=== PATIENT | male | born 1995 | race Caucasian/White ===

== ENCOUNTER 2017-10-06 18:57 | Emergency (ER) | payer SELFPAY ==
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
== END 2017-10-06 21:58 | disposition home or self-care (01) ==
LOC: ER 18:57
DX: S13.4XXA Sprain of ligaments of cervical spine, initial encounter (principal); Y09 Assault by unspecified means; Y93.9 Activity, unspecified; Y92.9 Unspecified place or not applicable
CPT/HCPCS: 70450; 70486; 72125; 76377; 99285

== ENCOUNTER 2018-04-02 02:34 | Emergency (ER) | payer SELFPAY ==
[2018-04-02] MEDS ORDERED: KETOROLAC 30 MG/ML INJ ONE (03:20)
--- NOTE | 2018-04-02 04:30 | ER ---
Nurse's Notes [facility] Name: Dominguez Easton Age: 22 yrs Sex: Male : 1995 Arrival Date: 04/02/2018 Time: 02:35 Bed 14 Private MD: Diagnosis: Headache Presentation: 04/02 02:45 Presenting complaint: Patient states: left eye twitching and tearing since 3 weeks and cc3 migraine headache mostly affecting the left eye area. Transition of care: patient was not received from another setting of care. Onset of symptoms is unknown. Risk Assessment: Do you want to hurt yourself or someone else? Patient reports no desire to harm self or others. Initial Sepsis Screen: Does the patient meet any 2 criteria? No. Patient's initial sepsis screen is negative. Does the patient have a suspected source of infection? No. Patient's initial sepsis screen is negative. Care prior to arrival: None. 02:45 Method Of Arrival: Ambulatory cc3 02:45 Acuity: SACHI 3 cc3 Triage Assessment: 02:45 General: Appears in no apparent distress. uncomfortable, Behavior is calm, cooperative, cc3 appropriate for age. Pain: Complains of pain in left eye area. EENT: Reports pain in left eye area. Neuro: Level of Consciousness is awake, alert, obeys commands, Oriented to person, place, time, situation, Appropriate for age. Cardiovascular: Denies chest pain. Respiratory: Airway is patent Respiratory effort is even, unlabored, Respiratory pattern is regular, symmetrical. GI: Abdomen is flat, non-distended. : No signs and/or symptoms were reported regarding the genitourinary system. Derm: No signs and/or symptoms reported regarding the dermatologic system. Musculoskeletal: Circulation, motion, and sensation intact. Range of motion: intact in all extremities. Historical: - Allergies: 02:45 No Known Allergies; cc3 - PMHx: 02:45 ADD/ADHD; Migraines; cc3 - PSHx: 02:45 jaw surgery; cc3 - Immunization history:: Adult Immunizations not up to date. - Social history:: Smoking status: Patient/guardian denies using tobacco, never smoked. - Ebola Screening: : No symptoms or risks identified at this time. Screenin:45 Abuse screen: Denies threats or abuse. Denies injuries from another. Nutritional cc3 screening: No deficits noted. Tuberculosis screening: No symptoms or risk factors identified. Fall Risk Ambulatory Aid- None/Bed Rest/Nurse Assist (0 pts). Gait- Normal/Bed Rest/Wheelchair (0 pts) Mental Status- Oriented to own ability (0 pts). Assessment: 02:45 General: see triage assessment. cc3 03:47 Reassessment: Patient appears in no apparent distress at this time. Patient and/or cc3 family updated on plan of care and expected duration. Pain level reassessed. Patient is alert, oriented x 3, equal unlabored respirations, skin warm/dry/pink. 04:50 Reassessment: Patient appears in no apparent distress at this time. Patient and/or cc3 family updated on plan of care and expected duration. Pain level reassessed. Patient is alert, oriented x 3, equal unlabored respirations, skin warm/dry/pink. Dr. Barillas discharged home the patient with prescription given. No IV cannula in situ. Patient left ER vitally stable and ambulatory. Vital Signs: 02:45 BP 136 / 81; Pulse 74; Resp 18 S; Temp 98.7(O); Pulse Ox 98% on R/A; Weight 61.23 kg cc3 (R); Height 6 ft. 1 in. (185.42 cm) (R); 03:32 BP 130 / 86; Pulse 61; Resp 17 S; Pulse Ox 97% on R/A; cc3 04:30 BP 103 / 65; Pulse 63; Resp 17 S; Pulse Ox 96% on R/A; cc3 02:45 Body Mass Index 17.81 (61.23 kg, 185.42 cm) cc3 ED Course: 02:35 Patient arrived in ED. am2 02:41 Lou Huynh is Primary Nurse. cc3 02:45 Aram Barillas MD is Attending Physician. gs 02:45 Arm band placed on right wrist. Patient notified of wait time. cc3 02:45 Patient has correct armband on for positive identification. Bed in low position. Call cc3 light in reach. Side rails up X 1. Pulse ox on. NIBP on. 03:02 Triage completed. cc3 03:[address] via wheelchair. kw1 03:27 CT Head Brain wo Cont In Process Unspecified. EDMS 03:28 CT completed. Patient tolerated procedure well. Patient moved back from CT. kw1 04:29 Zi Benavides MD is Referral Physician. 04:50 No provider procedures requiring assistance completed. Patient did not have IV access cc3 during this emergency room visit. Administered Medications: 03:30 Drug: TORadol 30 mg Route: IM; Site: left gluteus; cc3 04:30 Follow up: Response: No adverse reaction; Pain is decreased cc3 Outcome: 04:29 Discharge ordered by . 04:50 Discharged to home ambulatory. cc3 04:50 Condition: stable 04:50 Discharge instructions given to patient, Instructed on discharge instructions, follow up and referral plans. medication usage, Demonstrated understanding of instructions, follow-up care, medications, Prescriptions given X 1. 05:03 Patient left the ED. cc3 Signatures: Dispatcher [employer] Bhavana Stone am2 Aram Barillas MD MD gs Wilhelm, Kimberly kw1 Luo Huynh cc3
--- NOTE | 2018-04-02 04:30 | EDPHYS ---
Physician Documentation [facility] Name: Dominguez Easton Age: 22 yrs Sex: Male : 1995 Arrival Date: 04/02/2018 Time: 02:35 Bed 14 Private MD: ED Physician Aram Barillas HPI: 04/02 04:28 This 22 yrs old Male presents to ER via Ambulatory with complaints of Eye gs Problem - twitching. 04:28 The patient complains of pain to the left restorationist. The patient describes the headache as gs throbbing. Onset: The symptoms/episode began/occurred 1 month(s) ago. Associated signs and symptoms: Pertinent negatives: altered mental status, vomiting, weakness. Severity of symptoms: At its worst the pain was moderate, in the emergency department the pain is unchanged. Headache History: The patient has had previous headaches and this one is more severe than previous episodes. The patient has experienced similar episodes in the past, chronically. Historical: - Allergies: 02:45 No Known Allergies; cc3 - PMHx: 02:45 ADD/ADHD; Migraines; cc3 - PSHx: 02:45 jaw surgery; cc3 - Immunization history:: Adult Immunizations not up to date. - Social history:: Smoking status: Patient/guardian denies using tobacco, never smoked. - Ebola Screening: : No symptoms or risks identified at this time. ROS: 04:28 All other systems are negative. gs Exam: 04:28 Head/Face: Normocephalic, atraumatic. Eyes: Pupils equal round and reactive to light, gs extra-ocular motions intact. Lids and lashes normal. Conjunctiva and sclera are non-icteric and not injected. Cornea within normal limits. Periorbital areas with no swelling, redness, or edema. ENT: Nares patent. No nasal discharge, no septal abnormalities noted. Tympanic membranes are normal and external auditory canals are clear. Oropharynx with no redness, swelling, or masses, exudates, or evidence of obstruction, uvula midline. Mucous membranes moist. Neck: Trachea midline, no thyromegaly or masses palpated, and no cervical lymphadenopathy. Supple, full range of motion without nuchal rigidity, or vertebral point tenderness. No Meningismus. Chest/axilla: Normal chest wall appearance and motion. Nontender with no deformity. No lesions are appreciated. Cardiovascular: Regular rate and rhythm with a normal S1 and S2. No gallops, murmurs, or rubs. Normal PMI, no JVD. No pulse deficits. Respiratory: Lungs have equal breath sounds bilaterally, clear to auscultation and percussion. No rales, rhonchi or wheezes noted. No increased work of breathing, no retractions or nasal flaring. Abdomen/GI: Soft, non-tender, with normal bowel sounds. No distension or tympany. No guarding or rebound. No evidence of tenderness throughout. Back: No spinal tenderness. No costovertebral tenderness. Full range of motion. Skin: Warm, dry with normal turgor. Normal color with no rashes, no lesions, and no evidence of cellulitis. MS/ Extremity: Pulses equal, no cyanosis. Neurovascular intact. Full, normal range of motion. Neuro: Awake and alert, GCS 15, oriented to person, place, time, and situation. Cranial nerves II-XII grossly intact. Motor strength 5/5 in all extremities. Sensory grossly intact. Cerebellar exam normal. Normal gait. 04:28 Constitutional: The patient appears alert, awake. Vital Signs: 02:45 BP 136 / 81; Pulse 74; Resp 18 S; Temp 98.7(O); Pulse Ox 98% on R/A; Weight 61.23 kg cc3 (R); Height 6 ft. 1 in. (185.42 cm) (R); 03:32 BP 130 / 86; Pulse 61; Resp 17 S; Pulse Ox 97% on R/A; cc3 04:30 BP 103 / 65; Pulse 63; Resp 17 S; Pulse Ox 96% on R/A; cc3 02:45 Body Mass Index 17.81 (61.23 kg, 185.42 cm) cc3 MDM: 02:55 Patient medically screened. 04:28 Differential diagnosis: migraine, subdural hematoma, tension headache, vasomotor gs headache, post concussive syndrome. Data reviewed: vital signs, nurses notes. Response to treatment: the patient's symptoms have markedly improved after treatment, and as a result, I will discharge patient. 04/02 02:58 Order name: CT Head Brain wo Cont gs Administered Medications: 03:30 Drug: TORadol 30 mg Route: IM; Site: left gluteus; cc3 04:30 Follow up: Response: No adverse reaction; Pain is decreased cc3 Disposition: 04/02/18 04:29 Discharged to Home. Impression: Headache. - Condition is Stable. - Discharge Instructions: General Headache Without Cause. - Prescriptions for Fiorinal 50- 325-40 mg Oral Capsule - take 1 capsule by ORAL route every 4 hours As needed - not to exceed 6 capsules per day; 10 capsule. - Medication Reconciliation Form, Thank You Letter, Antibiotic Education, Prescription Opioid Use, Work release form form. - Follow up: Zi Benavides MD; When: 2 - 3 days; Reason: Re-evaluation by your physician. Signatures: Dispatcher [employer] EDDE Aram Barillas MD MD gs Cordel, Charlene cc3 Corrections: (The following items were deleted from the chart) 05:03 04:29 04/02/2018 04:29 Discharged to Home. Impression: Headache. Condition is Stable. cc3 Forms are Medication Reconciliation Form, Thank You Letter, Antibiotic Education, Prescription Opioid Use. Follow up: Zi Benavides; When: 2 - 3 days; Reason: Re-evaluation by your physician. gs
--- NOTE | 2018-04-02 08:47 | RAD REPORT ---
EXAM DESCRIPTION: CT - Head Brain Wo Cont - 04/02/2018 7:30 am CLINICAL HISTORY: Headache, head pain predominantly left side A preliminary report was provided at the time of the study and reviewed prior to final report. COMPARISON: CT head September 2017 TECHNIQUE: Axial 5 mm thick images of the head were obtained without IV contrast. All CT scans are performed using dose optimization technique as appropriate and may include automated exposure control or mA/KV adjustment according to patient size. FINDINGS: No intracranial hemorrhage, mass, edema or shift of mid-line structures. No acute infarcti on changes seen. No abnormal extra-axial fluid collections. Ventricles are normal. Mastoid air cells and visualized portions of the paranasal sinuses are clear. No acute bony findings. IMPRESSION: Negative non-contrast CT head examination. No significant change from comparison.
== END 2018-04-02 05:03 | disposition home or self-care (01) ==
LOC: ER 02:34
DX: R51 Headache (principal); F90.9 Attention-deficit hyperactivity disorder, unspecified type
CPT/HCPCS: 70450; 96372; 99284

== ENCOUNTER 2018-06-24 20:47 | Emergency (ER) | payer SELFPAY ==
[2018-06-24 21:25] LABS: Absolute Lymphocytes (CBC) 2.4 K/uL (0.7-4.9); Absolute Monocytes 0.8 K/uL (0.1-1.3); Basophils % 0.5 % (0-1.3); Hematocrit 42.8 % (39.6-49.0); Lymphocytes % 25.1 % (15.3-44.8); MPV 8.2 fL (7.6-11.3); Monocytes % 8.4 % (3.3-12.3); RBC Red Blood Cell Count 4.67 M/uL (4.33-5.43)
[2018-06-24 21:44] LABS: ALT/SGPT 20 U/L (12-78); AST/SGOT 18 U/L (15-37); Albumin 4.8 g/dL (3.4-5.0); Alkaline Phosphatase 108 U/L (45-117); BUN Blood Urea Nitrogen 9 mg/dL (7-18); Bicarbonate 30 mmol/L (21-32); Bilirubin Total 0.7 mg/dL (0.2-1.0); Glucose Level 94 mg/dL (74-106); Potassium 3.8 mmol/L (3.5-5.1); Protein, Total 8.2 g/dL (6.4-8.2); Sodium Level 139 mmol/L (136-145)
--- NOTE | 2018-06-24 22:13 | RAD REPORT ---
EXAM DESCRIPTION: RAD - Elbow Left 3 View - 06/24/2018 9:19 pm CLINICAL HISTORY: SWELLING COMPARISON: No comparisons FINDINGS: Soft tissue swelling is seen along the posterior aspect of the arm. No fracture, dislocati on or foreign body.
--- NOTE | 2018-06-24 22:41 | ER ---
Nurse's Notes [facility] Name: Dominguez Easton Age: 23 yrs Sex: Male : 1995 Arrival Date: 06/24/2018 Time: 20:54 Bed 11 Private MD: Diagnosis: Cellulitis of left upper limb Presentation: 06/24 20:55 Presenting complaint: Patient states: left elbow swelling since this morning. ak1 Transition of care: patient was not received from another setting of care. Onset of symptoms was June 24, 2018. Risk Assessment: Do you want to hurt yourself or someone else? Patient reports no desire to harm self or others. Initial Sepsis Screen:. Care prior to arrival: None. 20:55 Method Of Arrival: Ambulatory ak1 20:55 Acuity: SACHI 4 ak1 21:06 Initial Sepsis Screen: Does the patient meet any 2 criteria? No. Patient's initial ea sepsis screen is negative. Does the patient have a suspected source of infection? Yes: Skin breakdown/wound. Triage Assessment: 20:56 General: Appears in no apparent distress. Behavior is calm, cooperative. ak1 Historical: - Allergies: 20:56 No Known Allergies; ak1 - Home Meds: 20:56 None [Active]; ak1 - PMHx: 20:56 ADD/ADHD; Migraines; ak1 - PSHx: 20:56 jaw surgery; ak1 - Immunization history:: Adult Immunizations unknown. - Social history:: Smoking status: Patient/guardian denies using tobacco. - Ebola Screening: : No symptoms or risks identified at this time. Screenin:02 Abuse screen: Denies threats or abuse. Nutritional screening: No deficits noted. ea Tuberculosis screening: No symptoms or risk factors identified. Fall Risk None identified. Assessment: 21:03 General: Appears in no apparent distress. Behavior is calm, cooperative, appropriate ea for age. Pain: Complains of pain in left elbow. Neuro: Level of Consciousness is awake, alert, obeys commands, Oriented to person, place, time, situation. Cardiovascular: Patient's skin is warm and dry. Respiratory: Airway is patent Respiratory effort is even, unlabored, Respiratory pattern is regular, symmetrical. Derm: redness, warmth and swelling to left elbow. Musculoskeletal: Circulation, motion, and sensation intact. 22:10 Reassessment: Patient and/or family updated on plan of care and expected duration. Pain ea level reassessed. Patient is alert, oriented x 3, equal unlabored respirations, skin warm/dry/pink. 22:46 Reassessment: Patient and/or family updated on plan of care and expected duration. Pain ea level reassessed. Patient is alert, oriented x 3, equal unlabored respirations, skin warm/dry/pink. Discharge instruction given to patient, verbalized the understanding of isntruction. Vital Signs: 20:55 BP 125 / 61; Pulse 67; Resp 18; Temp 97.6(TE); Pulse Ox 100% on R/A; Weight 68.04 kg ak1 (R); Height 6 ft. 1 in. (185.42 cm) (R); Pain 5/10; 22:10 BP 128 / 62; Pulse 70; Resp 18; Temp 97.7; Pulse Ox 99% on R/A; ea 20:55 Body Mass Index 19.79 (68.04 kg, 185.42 cm) ak1 ED Course: 20:54 Patient arrived in ED. ak1 20:55 Triage completed. ak1 20:56 Arm band placed on Patient placed in an exam room, Patient notified of wait time. ak1 20:57 Enzo Thompson PA is PHCP. jm 20:57 Praneeth Toribio MD is Attending Physician. jmm 21:00 Debbie Mcgee, ZIA is Primary Nurse. ea 21:04 Patient has correct armband on for positive identification. Bed in low position. Call ea light in reach. 21:10 Inserted saline lock: 20 gauge in right antecubital area, using aseptic technique. ea Blood collected. 21:19 Elbow Left 3 View XRAY In Process Unspecified. EDMS 22:11 No provider procedures requiring assistance completed. ea 22:47 IV discontinued, intact, bleeding controlled, No redness/swelling at site. Pressure ea dressing applied. Administered Medications: No medications were administered Outcome: 22:41 Discharge ordered by . jmm 22:47 Discharge instructions given to patient, Instructed on discharge instructions, follow ea up and referral plans. medication usage, Demonstrated understanding of instructions, follow-up care, medications, Prescriptions given X 1. 22:47 Condition: good ea 22:47 Discharged to home ambulatory, with friend. ea 22:47 Patient left the ED. ea Signatures: Dispatcher [employer] EDEnzo Martinez PA PA jmm Krenek, Amber RN RN ak1 Debbie Mcgee RN RN ea
--- NOTE | 2018-06-24 22:41 | EDPHYS ---
Physician Documentation [facility] Name: Dominguez Easton Age: 23 yrs Sex: Male : 1995 Arrival Date: 06/24/2018 Time: 20:54 Bed 11 Private MD: ED Physician Praneeth Toribio HPI: 06/24 21:02 This 23 yrs old Male presents to ER via Ambulatory with complaints of Elbow jmm Injury. 21:02 The patient or guardian complains of pain, that is acute, swelling. Onset: The jmm symptoms/episode began/occurred gradually, today. This is a 23 year old male with no chronic medical conditions that presents to the ED with complaints of left elbow pain and redness beginning earlier today. patient denies fever. . Historical: - Allergies: 20:56 No Known Allergies; ak1 - Home Meds: 20:56 None [Active]; ak1 - PMHx: 20:56 ADD/ADHD; Migraines; ak1 - PSHx: 20:56 jaw surgery; ak1 - Immunization history:: Adult Immunizations unknown. - Social history:: Smoking status: Patient/guardian denies using tobacco. - Ebola Screening: : No symptoms or risks identified at this time. ROS: 21:02 Constitutional: Negative for fever, chills, and weight loss, Cardiovascular: Negative jmm for chest pain, palpitations, and edema, Respiratory: Negative for shortness of breath, cough, wheezing, and pleuritic chest pain. 21:02 MS/extremity: Positive for erythema, swelling, tenderness. 21:02 All other systems are negative. Exam: 21:02 Constitutional: This is a well developed, well nourished patient who is awake, alert, jmm and in no acute distress. Head/Face: atraumatic. Eyes: EOMI, no conjunctival erythema appreciated ENT: Moist Mucus Membranes Neck: Trachea midline, Supple Chest/axilla: Normal chest wall appearance and motion. Cardiovascular: Regular rate and rhythm. No edema appreciated Respiratory: Normal respirations, no respiratory distress appreciated Abdomen/GI: Non distended, soft 21:02 Musculoskeletal/extremity: tenderness along the lateral epicondyle appreciated, full rom appreciated with pain , compartments are soft, NVI. 21:02 Skin: erythema noted to the left lateral elbow, warmth appreciated, . 21:02 Neuro: Orientation: is normal, Mentation: is normal, Memory: is normal. 21:02 Psych: Behavior/mood is pleasant, cooperative. Vital Signs: 20:55 BP 125 / 61; Pulse 67; Resp 18; Temp 97.6(TE); Pulse Ox 100% on R/A; Weight 68.04 kg ak1 (R); Height 6 ft. 1 in. (185.42 cm) (R); Pain 5/10; 22:10 BP 128 / 62; Pulse 70; Resp 18; Temp 97.7; Pulse Ox 99% on R/A; ea 20:55 Body Mass Index 19.79 (68.04 kg, 185.42 cm) ak1 MDM: 21:02 Patient medically screened. [facility] 22:39 Data reviewed: vital signs, nurses notes. Counseling: I had a detailed discussion with [facility] the patient and/or guardian regarding: the historical points, exam findings, and any diagnostic results supporting the discharge/admit diagnosis, lab results, radiology results, the need for outpatient follow up, to return to the emergency department if symptoms worsen or persist or if there are any questions or concerns that arise at home. 22:39 ED course: FROM appreciated to the left elbow. CBC normal. I do not suspect septic m joint. Patient given wound infection return precautions. Patient understood and agrees with the plan of care. . 06/24 21:03 Order name: CBC with Diff; Complete Time: 21:49 [facility] 06/24 21:03 Order name: CMP; Complete Time: 21:49 [facility] 06/24 21:03 Order name: Elbow Left 3 View XRAY; Complete Time: 22:15 [facility] 06/24 21:03 Order name: Saline Lock; Complete Time: 21:18 [facility] Administered Medications: No medications were administered Disposition: 06/25 00:03 Co-signature as Attending Physician, Praneeth Toribio MD. rn Disposition: 06/24/18 22:41 Discharged to Home. Impression: Cellulitis of left upper limb. - Condition is Stable. - Discharge Instructions: Cellulitis, Adult. - Prescriptions for Bactrim DS 800- 160 mg Oral Tablet - take 1 tablet by ORAL route every 12 hours for 10 days; 20 tablet. - Medication Reconciliation Form, Thank You Letter, Antibiotic Education, Prescription Opioid Use form. - Follow up: Private Physician; When: 2 - 3 days; Reason: Recheck today's complaints, Continuance of care, Re-evaluation by your physician. Signatures: Dispatcher [employer] EDMS Enzo Thompson PA PA jmm Nieto, Roman, MD MD rn Krenek, Amber, RN RN ak1 Debbie Mcgee RN RN ea Corrections: (The following items were deleted from the chart) 06/24 22:47 22:41 06/24/2018 22:41 Discharged to Home. Impression: Cellulitis of left upper limb. ea Condition is Stable. Forms are Medication Reconciliation Form, Thank You Letter, Antibiotic Education, Prescription Opioid Use. Follow up: Private Physician; When: 2 - 3 days; Reason: Recheck today's complaints, Continuance of care, Re-evaluation by your physician. kimmie
== END 2018-06-24 22:47 | disposition home or self-care (01) ==
LOC: ER 20:47
DX: L03.114 Cellulitis of left upper limb (principal)
CPT/HCPCS: 36415; 80053; 85025; 99284

== ENCOUNTER 2018-06-27 20:05 | Emergency (ER) | payer SELFPAY ==
--- NOTE | 2018-06-27 22:07 | ER ---
Nurse's Notes [facility] Name: Dominguez Easton Age: 23 yrs Sex: Male : 1995 Arrival Date: 06/27/2018 Time: 20:08 Bed Waiting Private MD: Diagnosis: Presentation: 06/27 21:13 Presenting complaint: Patient states: "I was bringing my friend in and she got lp1 diagnosed with a stomach bug so I figured I should get checked out since we're together all the time"; Vomited x1, denies any diarrhea; States migraine that began at 1700, less severe than previous migraines. Transition of care: patient was not received from another setting of care. Onset of symptoms was June 27, 2018. Risk Assessment: Do you want to hurt yourself or someone else? Patient reports no desire to harm self or others. Initial Sepsis Screen: Does the patient meet any 2 criteria? No. Patient's initial sepsis screen is negative. Does the patient have a suspected source of infection? No. Patient's initial sepsis screen is negative. Care prior to arrival: None. 21:13 Method Of Arrival: Ambulatory lp1 21:13 Acuity: SACHI 3 lp1 Triage Assessment: 21:15 General: Appears in no apparent distress. Behavior is appropriate for age. Neuro: Level lp1 of Consciousness is awake, alert, obeys commands, Gait is steady, Reports photophobia. Respiratory: No deficits noted. Derm: Skin is pink, warm \\T\\ dry. Historical: - Allergies: 21:15 No Known Allergies; lp1 - Home Meds: 21:15 None [Active]; lp1 - PMHx: 21:15 ADD/ADHD; Migraines; lp1 - PSHx: 21:15 Jaw surgery; lp1 - Immunization history:: Adult Immunizations up to date, Flu vaccine is not up to date. - Social history:: Smoking status: Patient/guardian denies using tobacco. - Ebola Screening: : No symptoms or risks identified at this time. Screenin:16 Abuse screen: Denies threats or abuse. Denies injuries from another. Nutritional lp1 screening: No deficits noted. Tuberculosis screening: No symptoms or risk factors identified. Fall Risk None identified. Vital Signs: 21:15 BP 125 / 74; Pulse 64; Resp 16; Temp 97.7(O); Pulse Ox 100% on R/A; Weight 65.77 kg; lp1 Height 6 ft. 2 in. (187.96 cm); Pain 9/10; 21:15 Body Mass Index 18.62 (65.77 kg, 187.96 cm) lp1 ED Course: 20:08 Patient arrived in ED. ss4 21:15 Triage completed. lp1 21:16 Arm band placed on left wrist. lp1 21:57 Patient's name was called from ER lobby. No response. lp1 22:03 Patient's name was called from ER lobby. No response. lp1 Administered Medications: No medications were administered Outcome: 22:04 Eloped from waiting room, before seeing physician Time discovered patient gone: May lp1 2018 at 22:04 22:06 Patient left the ED. lp1 Signatures: Aida Hernandez RN RN lp1 Patricia Shi ss4 Corrections: (The following items were deleted from the chart) 21:16 21:15 Pain 9/10; lp1 lp1
== END 2018-06-27 22:06 | disposition left against medical advice (07) ==
LOC: ER 20:05
DX: R11.10 Vomiting, unspecified (principal); G43.909 Migraine, unspecified, not intractable, without status migrainosus; Z53.21 Procedure and treatment not carried out due to patient leaving prior to being seen by health care provider
CPT/HCPCS: 99281

== ENCOUNTER 2018-06-28 17:51 | Emergency (ER) | payer SELFPAY ==
[2018-06-28 19:26] LABS: Absolute Lymphocytes (CBC) 0.7 K/uL (0.7-4.9); Absolute Monocytes 0.6 K/uL (0.1-1.3); Absolute Neutrophil 8.9 K/uL (1.8-8.0); Basophils % 0.2 % (0-1.3); Eosinophils % 1.7 % (0-4.4); Hematocrit 45.4 % (39.6-49.0); Lymphocytes % 7.1 % (15.3-44.8); MPV 8.2 fL (7.6-11.3); Monocytes % 5.5 % (3.3-12.3); RBC Red Blood Cell Count 5.05 M/uL (4.33-5.43)
[2018-06-28 19:44] LABS: ALT/SGPT 17 U/L (12-78); AST/SGOT 14 U/L (15-37); Albumin 4.8 g/dL (3.4-5.0); Alkaline Phosphatase 107 U/L (45-117); BUN Blood Urea Nitrogen 16 mg/dL (7-18); Bicarbonate 28 mmol/L (21-32); Bilirubin Direct 0.2 mg/dL (0-0.2); Bilirubin Total 1.1 mg/dL (0.2-1.0); Glucose Level 80 mg/dL (74-106); Lipase 74 U/L (73-393); Potassium 3.9 mmol/L (3.5-5.1); Protein, Total 8.2 g/dL (6.4-8.2); Sodium Level 139 mmol/L (136-145)
[2018-06-28] MEDS ORDERED: NA CHLORIDE 0.9% 1,000 ML ONE (19:44)
[2018-06-28] MEDS ORDERED: ONDANSETRON 4 MG/2 ML VIAL ONE (19:44)
[2018-06-28 19:49] LABS: Blood Morphology Comment NOT SEEN (NOT SEEN); Platelet Estimate ADEQ; Urine White Blood Cell Casts OK
--- NOTE | 2018-06-28 20:07 | ER ---
Nurse's Notes [facility] Name: Dominguez Easton Age: 23 yrs Sex: Male : 1995 Arrival Date: 06/28/2018 Time: 17:55 Bed 19 Private MD: None, None Diagnosis: Acute Gastroenteritis Presentation: 06/28 18:03 Presenting complaint: Patient states: Numbness of the arm for several days, reports sg having vomiting/diarrhea as well that has worsened today. Transition of care: patient was not received from another setting of care. Onset of symptoms was June 28, 2018. Risk Assessment: Do you want to hurt yourself or someone else? Patient reports no desire to harm self or others. Initial Sepsis Screen: Does the patient meet any 2 criteria? No. Patient's initial sepsis screen is negative. Does the patient have a suspected source of infection? No. Patient's initial sepsis screen is negative. Care prior to arrival: None. 18:03 Method Of Arrival: Ambulatory sg 18:03 Acuity: SACHI 3 sg Historical: - Allergies: 18:03 No Known Allergies; sg - PMHx: 18:02 ADD/ADHD; Migraines; sg - PSHx: 18:02 Jaw surgery; sg - Immunization history:: Adult Immunizations up to date. - Social history:: Smoking status: Patient/guardian denies using tobacco. - Ebola Screening: : Patient negative for fever greater than or equal to 101.5 degrees Fahrenheit, and additional compatible Ebola Virus Disease symptoms Patient denies exposure to infectious person Patient denies travel to an Ebola-affected area in the 21 days before illness onset No symptoms or risks identified at this time. Screenin:37 Abuse screen: Denies threats or abuse. Denies injuries from another. Nutritional jl7 screening: No deficits noted. Tuberculosis screening: No symptoms or risk factors identified. Fall Risk None identified. Assessment: 18:37 General: Appears in no apparent distress. uncomfortable, Behavior is calm, cooperative, jl7 appropriate for age. Pain: Complains of pain in umbilical area Pain does not radiate. Pain currently is 3 out of 10 on a pain scale. at worst was 10 out of 10 on a pain scale. Quality of pain is described as sharp, Pain began 1 day ago. Is continuous. Neuro: Level of Consciousness is awake, alert, obeys commands, Oriented to person, place, time, situation. Cardiovascular: Patient's skin is warm and dry. Respiratory: Airway is patent Respiratory effort is even, unlabored, Respiratory pattern is regular, symmetrical. GI: Abdomen is flat, non-distended, Reports diarrhea, nausea, vomiting. : No signs and/or symptoms were reported regarding the genitourinary system. EENT: No signs and/or symptoms were reported regarding the EENT system. Derm: Skin is pink, warm \T\ dry. 19:42 Reassessment: Patient appears in no apparent distress at this time. No changes from ed1 previously documented assessment. Patient and/or family updated on plan of care and expected duration. Pain level reassessed. Patient is alert, oriented x 3, equal unlabored respirations, skin warm/dry/pink. Patient states symptoms have not improved. Vital Signs: 18:02 BP 119 / 73; Pulse 70; Resp 17; Temp 97.6; Pulse Ox 99% on R/A; Weight 79.38 kg (R); sg Height 6 ft. 3 in. (190.50 cm); Pain 4/10; 18:37 BP 120 / 77; Pulse 67; Resp 16 S; Pulse Ox 100% on R/A; jl7 19:42 BP 115 / 72; Pulse 63; Resp 17; Pulse Ox 99% on R/A; Pain 4/10; ed1 18:02 Body Mass Index 21.87 (79.38 kg, 190.50 cm) ED Course: 17:55 Patient arrived in ED. mr 17:56 None, None is Private Physician. mr 18:02 Arm band placed on. sg 18:04 Triage completed. sg 18:04 Maci Aburto, ZIA is Primary Nurse. jl7 18:37 Patient has correct armband on for positive identification. Bed in low position. Call jl7 light in reach. Side rails up X 1. Pulse ox on. NIBP on. 18:38 Kunal Hyde PA is PHCP. jr8 18:38 Praneeth Toribio MD is Attending Physician. jr8 18:58 Primary Nurse role handed off by Maci Aburto, ZIA ed1 18:58 Priti Zaldivar, ZIA is Primary Nurse. ed1 19:34 Inserted saline lock: 20 gauge in right antecubital area, using aseptic technique. oe Blood collected. 20:22 No provider procedures requiring assistance completed. IV discontinued, intact, ed1 bleeding controlled, No redness/swelling at site. Pressure dressing applied. Administered Medications: 19:36 Drug: Zofran 4 mg Route: IVP; Site: right antecubital; ed1 20:22 Follow up: Response: No adverse reaction; Nausea is decreased ed1 19:37 Drug: NS 0.9% 1000 ml Route: IV; Rate: 1000 ml; Site: right antecubital; ed1 20:22 Follow up: IV Status: Completed infusion; IV Intake: 1000ml ed1 Intake: 20:22 IV: 1000ml; Total: 1000ml. ed1 Outcome: 20:06 Discharge ordered by MD. keene 20:22 Discharged to home ambulatory. ed1 20:22 Condition: good 20:22 Discharge instructions given to patient, Instructed on discharge instructions, follow up and referral plans. medication usage, Demonstrated understanding of instructions, follow-up care, medications, Prescriptions given X 2. 20:23 Patient left the ED. ed1 Signatures: Jarocho Saunders, RN Jesusita Alejandre Erika RN RN ed1 Kunal Hyde PA PA jr8 Luis Fernando Clarke Jahala RN RN jl7
--- NOTE | 2018-06-28 20:07 | EDPHYS ---
Physician Documentation [facility] Name: Dominguez Easton Age: 23 yrs Sex: Male : 1995 Arrival Date: 06/28/2018 Time: 17:55 Bed 19 Private MD: None, None ED Physician Praneeth Toribio HPI: 06/28 19:05 This 23 yrs old Male presents to ER via Ambulatory with complaints of jr8 Vomiting/Diarrhea. 19:10 The patient presents with abdominal pain that is diffuse. Onset: The symptoms/episode jr8 began/occurred acutely, today. The symptoms do not radiate. Associated signs and symptoms: Pertinent positives: nausea, vomiting, and diarrhea. The symptoms are described as crampy. Modifying factors: The symptoms are alleviated by nothing, the symptoms are aggravated by food. Severity of pain: At its worst the pain was moderate in the emergency department the pain is unchanged. The patient has not experienced similar symptoms in the past. The patient has not recently seen a physician. Stated that his friend was recently diagnosed with GI viral symptoms. Stated that he was drinking after her and now thinks he has it. Stated that he has had multiple episodes of n/v/d and abdominal cramping . Historical: - Allergies: 18:03 No Known Allergies; sg - PMHx: 18:02 ADD/ADHD; Migraines; sg - PSHx: 18:02 Jaw surgery; sg - Immunization history:: Adult Immunizations up to date. - Social history:: Smoking status: Patient/guardian denies using tobacco. - Ebola Screening: : Patient negative for fever greater than or equal to 101.5 degrees Fahrenheit, and additional compatible Ebola Virus Disease symptoms Patient denies exposure to infectious person Patient denies travel to an Ebola-affected area in the 21 days before illness onset No symptoms or risks identified at this time. ROS: 19:05 Eyes: Negative for injury, pain, redness, and discharge, ENT: Negative for injury, jr8 pain, and discharge, Neck: Negative for injury, pain, and swelling, Cardiovascular: Negative for chest pain, palpitations, and edema, Respiratory: Negative for shortness of breath, cough, wheezing, and pleuritic chest pain, Back: Negative for injury and pain, MS/Extremity: Negative for injury and deformity, Skin: Negative for injury, rash, and discoloration, Neuro: Negative for headache, weakness, numbness, tingling, and seizure. 19:05 Abdomen/GI: Positive for abdominal pain, nausea, vomiting, and diarrhea, abdominal cramps, Negative for abdominal distension, anorexia, dysphagia, hematemesis, black/tarry stool, rectal pain, rectal bleeding, bowel incontinence, flatulence. Exam: 19:05 Eyes: Pupils equal round and reactive to light, extra-ocular motions intact. Lids and jr8 lashes normal. Conjunctiva and sclera are non-icteric and not injected. Cornea within normal limits. Periorbital areas with no swelling, redness, or edema. ENT: Nares patent. No nasal discharge, no septal abnormalities noted. Tympanic membranes are normal and external auditory canals are clear. Oropharynx with no redness, swelling, or masses, exudates, or evidence of obstruction, uvula midline. Mucous membranes moist. Neck: Trachea midline, no thyromegaly or masses palpated, and no cervical lymphadenopathy. Supple, full range of motion without nuchal rigidity, or vertebral point tenderness. No Meningismus. Cardiovascular: Regular rate and rhythm with a normal S1 and S2. No gallops, murmurs, or rubs. Normal PMI, no JVD. No pulse deficits. Respiratory: Lungs have equal breath sounds bilaterally, clear to auscultation and percussion. No rales, rhonchi or wheezes noted. No increased work of breathing, no retractions or nasal flaring. Back: No spinal tenderness. No costovertebral tenderness. Full range of motion. Skin: Warm, dry with normal turgor. Normal color with no rashes, no lesions, and no evidence of cellulitis. MS/ Extremity: Pulses equal, no cyanosis. Neurovascular intact. Full, normal range of motion. Neuro: Awake and alert, GCS 15, oriented to person, place, time, and situation. Cranial nerves II-XII grossly intact. Motor strength 5/5 in all extremities. Sensory grossly intact. Cerebellar exam normal. Normal gait. 19:05 Abdomen/GI: Inspection: abdomen appears normal, Bowel sounds: active, all quadrants, Palpation: soft, in all quadrants, mild abdominal tenderness, in the abdomen diffusely, mass, is not appreciated, rebound tenderness, is not appreciated, voluntary guarding, is not appreciated, involuntary guarding, is not appreciated, no appreciated organomegaly, Indicators: McBurney's point is not tender, Puckett's sign is negative, Rovsing's sign is negative, Liver: tenderness, is not appreciated. Vital Signs: 18:02 BP 119 / 73; Pulse 70; Resp 17; Temp 97.6; Pulse Ox 99% on R/A; Weight 79.38 kg (R); sg Height 6 ft. 3 in. (190.50 cm); Pain 4/10; 18:37 BP 120 / 77; Pulse 67; Resp 16 S; Pulse Ox 100% on R/A; jl7 19:42 BP 115 / 72; Pulse 63; Resp 17; Pulse Ox 99% on R/A; Pain 4/10; ed1 18:02 Body Mass Index 21.87 (79.38 kg, 190.50 cm) sg MDM: 19:11 Patient medically screened. jr8 20:02 Data reviewed: vital signs, nurses notes, lab test result(s), and as a result, I will jr8 discharge patient. Data interpreted: Pulse oximetry: on room air is 99 %. Interpretation: normal. Counseling: I had a detailed discussion with the patient and/or guardian regarding: the historical points, exam findings, and any diagnostic results supporting the discharge/admit diagnosis, lab results, the need for outpatient follow up, a family practitioner, to return to the emergency department if symptoms worsen or persist or if there are any questions or concerns that arise at home. Response to treatment: the patient's symptoms have markedly improved after treatment. ED course: Abdomen soft and without rebounding or guarding. No acute findings on labs. Return precautions given . 06/28 19:05 Order name: Basic Metabolic Panel; Complete Time: 19:52 [facility] 06/28 19:05 Order name: CBC with Diff; Complete Time: 19:52 [facility] 06/28 19:05 Order name: Creatinine for Radiology; Complete Time: 19:52 [facility] 06/28 19:05 Order name: Hepatic Function; Complete Time: 19:52 [facility] 06/28 19:05 Order name: Lipase; Complete Time: 19:52 [facility] 06/28 19:29 Order name: CBC Smear Scan; Complete Time: 19:52 [facility] 06/28 19:05 Order name: IV Saline Lock; Complete Time: 19:31 06/28 19:05 Order name: Labs collected and sent; Complete Time: 19:31 jr8 Administered Medications: 19:36 Drug: Zofran 4 mg Route: IVP; Site: right antecubital; ed1 20:22 Follow up: Response: No adverse reaction; Nausea is decreased ed1 19:37 Drug: NS 0.9% 1000 ml Route: IV; Rate: 1000 ml; Site: right antecubital; ed1 20:22 Follow up: IV Status: Completed infusion; IV Intake: 1000ml ed1 Disposition: 06/29 07:00 Co-signature as Attending Physician, Praneeth Toribio MD. rn Disposition: 06/28/18 20:06 Discharged to Home. Impression: Acute Gastroenteritis. - Condition is Stable. - Discharge Instructions: Viral Gastroenteritis, Adult. - Prescriptions for Bentyl 20 mg Oral Tablet - take 1 tablet by ORAL route every 6 hours As needed; 20 tablet. Zofran 4 mg Oral Tablet - take 1 tablet by ORAL route every 12 hours As needed; 20 tablet. - Medication Reconciliation Form, Thank You Letter, Antibiotic Education, Prescription Opioid Use form. - Follow up: Private Physician; When: 2 - 3 days; Reason: Recheck today's complaints, Continuance of care, Re-evaluation by your physician. - Problem is new. - Symptoms have improved. Signatures: Dispatcher [employer] EDHI Jarocho Saunders RN RN Praneeth Toribio MD MD rn Riggs, Erika, RN RN ed1 Kunal Hyde PA PA jr8 Corrections: (The following items were deleted from the chart) 06/28 20:23 20:06 06/28/2018 20:06 Discharged to Home. Impression: Acute Gastroenteritis. Condition ed1 is Stable. Forms are Medication Reconciliation Form, Thank You Letter, Antibiotic Education, Prescription Opioid Use. Follow up: Private Physician; When: 2 - 3 days; Reason: Recheck today's complaints, Continuance of care, Re-evaluation by your physician. Problem is new. Symptoms have improved. jr8
== END 2018-06-28 20:23 | disposition home or self-care (01) ==
LOC: ER 17:51
DX: K52.9 Noninfective gastroenteritis and colitis, unspecified (principal)
CPT/HCPCS: 36415; 80048; 80076; 83690; 85025; 96361; 96374; 99284; J2405; J7030

== ENCOUNTER 2018-08-27 02:05 | Emergency (ER) | payer SELFPAY ==
[2018-08-27 02:46] LABS: Absolute Lymphocytes (CBC) 0.8 K/uL (0.7-4.9); Absolute Monocytes 0.8 K/uL (0.1-1.3); Absolute Neutrophil 9.2 K/uL (1.8-8.0); Basophils % 0.2 % (0-1.3); Eosinophils % 0.5 % (0-4.4); Hematocrit 40.8 % (39.6-49.0); Lymphocytes % 7.6 % (15.3-44.8); MPV 7.9 fL (7.6-11.3); Monocytes % 7.7 % (3.3-12.3)
[2018-08-27] MEDS ORDERED: NA CHLORIDE 0.9% 1,000 ML ONE (02:46)
[2018-08-27] MEDS ORDERED: KETOROLAC 30 MG/ML INJ ONE (02:46)
[2018-08-27] MEDS ORDERED: DIPHENHYDRAMINE 50 MG/ML VIAL ONE (02:46)
[2018-08-27 03:04] LABS: BUN Blood Urea Nitrogen 13 mg/dL (7-18); Bicarbonate 25 mmol/L (21-32); Creatine Phosphokinase 95 U/L (39-308); Glucose Level 149 mg/dL (74-106); Potassium 3.2 mmol/L (3.5-5.1); Sodium Level 137 mmol/L (136-145)
--- NOTE | 2018-08-27 03:57 | ER ---
Nurse's Notes [facility] Name: Dominguez Easton Age: 23 yrs Sex: Male : 1995 Arrival Date: 08/27/2018 Time: 02:11 Bed 7 Private MD: Diagnosis: Headache Presentation: 08/27 02:24 Presenting complaint: Patient states: migraine and dizziness x 3 days. Transition of aa1 care: patient was not received from another setting of care. 02:24 Method Of Arrival: Ambulatory aa1 02:24 Onset of symptoms was August 24, 2018. Risk Assessment: Do you want to hurt yourself or aa1 someone else? Patient reports no desire to harm self or others. Initial Sepsis Screen: Does the patient meet any 2 criteria? No. Patient's initial sepsis screen is negative. Does the patient have a suspected source of infection? No. Patient's initial sepsis screen is negative. Care prior to arrival: None. 02:24 Acuity: SACHI 3 aa1 Triage Assessment: 02:24 General: Appears in no apparent distress. comfortable, Behavior is calm, cooperative, aa1 appropriate for age. Historical: - Allergies: 02:30 No Known Allergies; aa1 - Home Meds: 02:30 None [Active]; aa1 - PMHx: 02:30 ADD/ADHD; Migraines; aa1 - PSHx: 02:30 Jaw surgery; aa1 - Immunization history:: Flu vaccine is not up to date. - Social history:: Smoking status: Patient/guardian denies using tobacco. - Ebola Screening: : No symptoms or risks identified at this time. Screenin:08 Abuse screen: Denies threats or abuse. Nutritional screening: No deficits noted. ea Tuberculosis screening: No symptoms or risk factors identified. Fall Risk None identified. Assessment: 02:40 General: Appears uncomfortable, Behavior is calm, cooperative, appropriate for age. ea Pain: Complains of pain in top of head, forehead, right episcopalian and left episcopalian. Neuro: Level of Consciousness is awake, alert, obeys commands, Oriented to person, place, time, situation. Cardiovascular: Patient's skin is warm and dry. Respiratory: Airway is patent Respiratory effort is even, unlabored, Respiratory pattern is regular, symmetrical. GI: Abdomen is non-distended. Derm: Skin is pink, warm \T\ dry. 03:08 Reassessment: Patient and/or family updated on plan of care and expected duration. Pain ea level reassessed. Patient is alert, oriented x 3, equal unlabored respirations, skin warm/dry/pink. 04:12 Reassessment: Patient and/or family updated on plan of care and expected duration. Pain ea level reassessed. Patient is alert, oriented x 3, equal unlabored respirations, skin warm/dry/pink. Discharge instruction given to patient, verbalized the understanding of instruction. Pt left ED ambulatory tolerating well. Vital Signs: 02:24 BP 135 / 78; Pulse 93; Resp 16; Temp 99.0; Pulse Ox 97% ; Weight 65.77 kg; Height 6 ft. aa1 1 in. (185.42 cm); Pain 10/10; 03:05 BP 101 / 60; Pulse 79; Resp 18; Pulse Ox 99% ; ea 04:05 BP 100 / 52; Pulse 78; Resp 18; Temp 98; Pulse Ox 100% ; ea 02:24 Body Mass Index 19.13 (65.77 kg, 185.42 cm) aa1 ED Course: 02:11 Patient arrived in ED. es 02:20 Aram Barillas MD is Attending Physician. gs 02:24 Arm band placed on right wrist. aa1 02:28 Triage completed. aa1 02:28 Debbie Mcgee, ZIA is Primary Nurse. ea 02:40 Patient has correct armband on for positive identification. Bed in low position. Call ea light in reach. Side rails up X 1. 04:09 IV discontinued, intact, bleeding controlled, No redness/swelling at site. Pressure ea dressing applied. 04:12 No provider procedures requiring assistance completed. ea Administered Medications: 02:39 Drug: NS 0.9% 1000 ml Route: IV; Rate: 1 bolus; Site: right antecubital; ea 02:39 Drug: TORadol - Ketorolac 15 mg Route: IVP; Site: right antecubital; ea 04:00 Follow up: Response: No adverse reaction ea 02:40 Drug: Benadryl 12.5 mg Route: IVP; Site: right antecubital; ea 04:16 Follow up: Response: No adverse reaction; Marked relief of symptoms ea Outcome: 03:56 Discharge ordered by . gs 04:13 Discharged to home ambulatory. ea 04:13 Condition: improved 04:13 Instructed on discharge instructions, follow up and referral plans. Demonstrated understanding of instructions, follow-up care. 04:16 Patient left the ED. ea Signatures: Dottie Hilton, RN RN aa1 Meche Meeks Elena, RN RN Aram Mcmillan MD MD
--- NOTE | 2018-08-27 03:57 | EDPHYS ---
Physician Documentation [facility] Name: Dominguez Easton Age: 23 yrs Sex: Male : 1995 Arrival Date: 08/27/2018 Time: 02:11 Bed 7 Private MD: ED Physician Aram Barillas HPI: 08/27 03:53 This 23 yrs old Male presents to ER via Ambulatory with complaints of gs Headache. 03:53 The patient complains of pain to the left restorationist. The patient describes the headache as gs throbbing. Onset: The symptoms/episode began/occurred 3 day(s) ago. 03:53 Associated signs and symptoms: Pertinent negatives: dizziness, nausea. Severity of gs symptoms: At its worst the pain was severe, in the emergency department the pain is unchanged. Headache History: The patient has had previous headaches and this one is similar to previous episodes. The symptoms are alleviated by nothing. the symptoms are aggravated by nothing. The patient has experienced similar episodes in the past, multiple times. Historical: - Allergies: 02:30 No Known Allergies; aa1 - Home Meds: 02:30 None [Active]; aa1 - PMHx: 02:30 ADD/ADHD; Migraines; aa1 - PSHx: 02:30 Jaw surgery; aa1 - Immunization history:: Flu vaccine is not up to date. - Social history:: Smoking status: Patient/guardian denies using tobacco. - Ebola Screening: : No symptoms or risks identified at this time. ROS: 03:53 All other systems are negative. gs Exam: 03:53 Head/Face: Normocephalic, atraumatic. Eyes: Pupils equal round and reactive to light, gs extra-ocular motions intact. Lids and lashes normal. Conjunctiva and sclera are non-icteric and not injected. Cornea within normal limits. Periorbital areas with no swelling, redness, or edema. ENT: Nares patent. No nasal discharge, no septal abnormalities noted. Tympanic membranes are normal and external auditory canals are clear. Oropharynx with no redness, swelling, or masses, exudates, or evidence of obstruction, uvula midline. Mucous membranes moist. Neck: Trachea midline, no thyromegaly or masses palpated, and no cervical lymphadenopathy. Supple, full range of motion without nuchal rigidity, or vertebral point tenderness. No Meningismus. Chest/axilla: Normal chest wall appearance and motion. Nontender with no deformity. No lesions are appreciated. Cardiovascular: Regular rate and rhythm with a normal S1 and S2. No gallops, murmurs, or rubs. Normal PMI, no JVD. No pulse deficits. Respiratory: Lungs have equal breath sounds bilaterally, clear to auscultation and percussion. No rales, rhonchi or wheezes noted. No increased work of breathing, no retractions or nasal flaring. Abdomen/GI: Soft, non-tender, with normal bowel sounds. No distension or tympany. No guarding or rebound. No evidence of tenderness throughout. Back: No spinal tenderness. No costovertebral tenderness. Full range of motion. Skin: Warm, dry with normal turgor. Normal color with no rashes, no lesions, and no evidence of cellulitis. MS/ Extremity: Pulses equal, no cyanosis. Neurovascular intact. Full, normal range of motion. Neuro: Awake and alert, GCS 15, oriented to person, place, time, and situation. Cranial nerves II-XII grossly intact. Motor strength 5/5 in all extremities. Sensory grossly intact. Cerebellar exam normal. Normal gait. 03:53 Constitutional: The patient appears alert, awake. Vital Signs: 02:24 BP 135 / 78; Pulse 93; Resp 16; Temp 99.0; Pulse Ox 97% ; Weight 65.77 kg; Height 6 ft. aa1 1 in. (185.42 cm); Pain 10/10; 03:05 BP 101 / 60; Pulse 79; Resp 18; Pulse Ox 99% ; ea 04:05 BP 100 / 52; Pulse 78; Resp 18; Temp 98; Pulse Ox 100% ; ea 02:24 Body Mass Index 19.13 (65.77 kg, 185.42 cm) aa1 MDM: 02:27 Patient medically screened. 03:53 Differential diagnosis: migraine, tension headache, vasomotor headache. Data reviewed: vital signs, nurses notes, old medical records, lab test result(s). Counseling: I had a detailed discussion with the patient and/or guardian regarding: the historical points, exam findings, and any diagnostic results supporting the discharge/admit diagnosis, lab results, the need for outpatient follow up. Response to treatment: the patient's symptoms have markedly improved after treatment, the patient's symptoms have resolved after treatment, the patient's pain is gone, the patient's condition has returned to base line. 08/27 02:28 Order name: CBC with Diff; Complete Time: 03:02 gs 08/27 02:28 Order name: Basic Metabolic Panel; Complete Time: 03:10 gs 08/27 02:28 Order name: CPK; Complete Time: 03:10 gs Administered Medications: 02:39 Drug: NS 0.9% 1000 ml Route: IV; Rate: 1 bolus; Site: right antecubital; ea 02:39 Drug: TORadol - Ketorolac 15 mg Route: IVP; Site: right antecubital; ea 04:00 Follow up: Response: No adverse reaction ea 02:40 Drug: Benadryl 12.5 mg Route: IVP; Site: right antecubital; ea 04:16 Follow up: Response: No adverse reaction; Marked relief of symptoms ea Disposition: 08/27/18 03:56 Discharged to Home. Impression: Headache. - Condition is Stable. - Discharge Instructions: Dehydration, Adult, General Headache Without Cause, Migraine Headache. - Medication Reconciliation Form, Thank You Letter, Antibiotic Education, Prescription Opioid Use form. - Follow up: Private Physician; When: 2 - 3 days; Reason: Re-evaluation by your physician. Signatures: Dispatcher [employer] Dottie Arnold RN RN aa1 Debbie Mcgee RN RN Aram Mcmillan MD MD gs Corrections: (The following items were deleted from the chart) 04:16 03:56 08/27/2018 03:56 Discharged to Home. Impression: Headache. Condition is Stable. ea Forms are Medication Reconciliation Form, Thank You Letter, Antibiotic Education, Prescription Opioid Use. Follow up: Private Physician; When: 2 - 3 days; Reason: Re-evaluation by your physician. gs
== END 2018-08-27 04:16 | disposition home or self-care (01) ==
LOC: ER 02:05
DX: R51 Headache (principal); F90.9 Attention-deficit hyperactivity disorder, unspecified type
CPT/HCPCS: 36415; 80048; 82550; 85025; 96374; 96375; 99283; J7030

== ENCOUNTER 2018-09-23 02:13 | Emergency (ER) | payer SELFPAY ==
--- NOTE | 2018-09-23 02:37 | ER ---
Nurse's Notes [facility] Name: Dominguez Easton Age: 23 yrs Sex: Male : 1995 Arrival Date: 09/23/2018 Time: 02:17 Bed 6 Private MD: Diagnosis: Rash and other nonspecific skin eruption Presentation: 09/23 02:25 Presenting complaint: Patient states: i got bitten by a "chiggers" 2 days ago on my rr5 genital area it got swollen. pain score of 6/10. 02:25 Transition of care: patient was not received from another setting of care. Onset of rr5 symptoms was September 21, 2018. Risk Assessment: Do you want to hurt yourself or someone else? Patient reports no desire to harm self or others. Initial Sepsis Screen: Does the patient meet any 2 criteria? No. Patient's initial sepsis screen is negative. Does the patient have a suspected source of infection? No. Patient's initial sepsis screen is negative. Care prior to arrival: None. 02:25 Method Of Arrival: Ambulatory rr5 02:25 Acuity: SACHI 4 rr5 Triage Assessment: 02:10 Bite description: bite sustained to abdomen, right leg and left leg and genitalia by rr5 chiggers, animal information: vaccination(s) is unknown. 02:10 General: Appears in no apparent distress. uncomfortable, Behavior is calm, cooperative, rr5 appropriate for age. Historical: - Allergies: 02:33 No Known Allergies; rr5 - Home Meds: 02:33 None [Active]; rr5 - PMHx: 02:33 ADD/ADHD; Migraines; Bipolar disorder; rr5 - PSHx: 02:33 jaw surgery; rr5 - Immunization history:: Adult Immunizations not up to date. - Social history:: Smoking status: Patient/guardian denies using tobacco, Patient uses alcohol, occasionally. Patient/guardian denies using street drugs. - Ebola Screening: : Patient negative for fever greater than or equal to 101.5 degrees Fahrenheit, and additional compatible Ebola Virus Disease symptoms Patient denies exposure to infectious person Patient denies travel to an Ebola-affected area in the 21 days before illness onset. - Family history:: not pertinent. - Hospitalizations: : No recent hospitalization is reported. Screenin:30 Abuse screen: Denies threats or abuse. Denies injuries from another. Nutritional rr5 screening: No deficits noted. Tuberculosis screening: No symptoms or risk factors identified. Fall Risk None identified. Total Fajardo Fall Scale indicates No Risk (0-24 pts). Assessment: 02:30 General: Appears in no apparent distress. uncomfortable, Behavior is calm, cooperative, rr5 agitated. Pain: Complains of pain in penile area Pain does not radiate. Pain currently is 6 out of 10 on a pain scale. Quality of pain is described as aching, Pain began gradually, Is intermittent. Neuro: Level of Consciousness is awake, alert, obeys commands, Oriented to person, place, time, situation, Appropriate for age. Cardiovascular: Capillary refill < 3 seconds Patient's skin is warm and dry. Respiratory: Airway is patent Respiratory effort is even, unlabored, Respiratory pattern is regular, agonal. GI: No signs and/or symptoms were reported involving the gastrointestinal system. : Swelling noted on penis on scrotum bite red darden noted. EENT: No signs and/or symptoms were reported regarding the EENT system. Derm: Skin is intact, Skin is pink, warm \\T\\ dry. Rash noted that is papular, red, raised, on anterior aspect of left lateral abdomen, anterior aspect of right lateral abdomen, right lower quadrant, left lower quadrant, right leg and left leg. Musculoskeletal: Circulation, motion, and sensation intact. Capillary refill < 3 seconds. 02:50 Reassessment: Patient appears in no apparent distress at this time. discharge rr5 instruction given and explained without complaints made. Vital Signs: 02:30 BP 138 / 81; Pulse 86; Resp 17; Temp 98.6; Pulse Ox 98% ; Weight 65.77 kg; Height 6 ft. rr5 1 in. (185.42 cm); Pain 6/10; 02:39 BP 120 / 78; Pulse 72; Resp 19; Pulse Ox 96% ; rr5 02:30 Body Mass Index 19.13 (65.77 kg, 185.42 cm) rr5 ED Course: 02:17 Patient arrived in ED. do 02:26 Monty Abrams MD is Attending Physician. wa 02:29 Jacek Gregg RN is Primary Nurse. rr5 02:30 Patient has correct armband on for positive identification. Bed in low position. rr5 02:32 Triage completed. rr5 02:34 Arm band placed on. rr5 02:38 No provider procedures requiring assistance completed. Patient did not have IV access rr5 during this emergency room visit. Administered Medications: No medications were administered Outcome: 02:34 Discharge ordered by . kaitlin 02:50 Discharged to home ambulatory. rr5 02:50 Condition: stable 02:50 Discharge instructions given to patient, Instructed on discharge instructions, follow up and referral plans. medication usage, Demonstrated understanding of instructions, follow-up care, medications, Prescriptions given X 2. 02:52 Patient left the ED. rr5 Signatures: Princess Kee William, MD MD wa Roque, Raymond, RN RN rr5
--- NOTE | 2018-09-23 02:37 | EDPHYS ---
Physician Documentation [facility] Name: Dominguez Easton Age: 23 yrs Sex: Male : 1995 Arrival Date: 09/23/2018 Time: 02:17 Bed 6 Private MD: ED Physician Monty Abrams HPI: 09/23 04:28 This 23 yrs old Male presents to ER via Ambulatory with complaints of Insect wa Bite, Genital Area Problem. 04:28 The patient's rash thought to be caused by insect bites. The rash is located on the wa left leg and right leg and abdomen, buttock, lower back. The rash can be described as erythematous, papular, some crusted. a few with punched centers. Onset: The symptoms/episode began/occurred 2 day(s) ago. Associated signs and symptoms: Pertinent positives: itching, Pertinent negatives: burning sensation, difficulty breathing, Pain swelling of tongue, wheezing. Severity of symptoms: At their worst the symptoms were moderate in the emergency department the symptoms are unchanged. Treatment given at home: none. The patient has not experienced similar symptoms in the past. The patient has not recently seen a physician. states was cutting grass a couple days back and may have been bitten then. . Historical: - Allergies: 02:33 No Known Allergies; rr5 - Home Meds: 02:33 None [Active]; rr5 - PMHx: 02:33 ADD/ADHD; Migraines; Bipolar disorder; rr5 - PSHx: 02:33 jaw surgery; rr5 - Immunization history:: Adult Immunizations not up to date. - Social history:: Smoking status: Patient/guardian denies using tobacco, Patient uses alcohol, occasionally. Patient/guardian denies using street drugs. - Ebola Screening: : Patient negative for fever greater than or equal to 101.5 degrees Fahrenheit, and additional compatible Ebola Virus Disease symptoms Patient denies exposure to infectious person Patient denies travel to an Ebola-affected area in the 21 days before illness onset. - Family history:: not pertinent. - Hospitalizations: : No recent hospitalization is reported. ROS: 04:34 Constitutional: Negative for fever, chills, and weight loss, Eyes: Negative for injury, wa pain, redness, and discharge, ENT: Negative for injury, pain, and discharge, Neck: Negative for injury, pain, and swelling, Cardiovascular: Negative for chest pain, palpitations, and edema, Respiratory: Negative for shortness of breath, cough, wheezing, and pleuritic chest pain, Abdomen/GI: Negative for abdominal pain, nausea, vomiting, diarrhea, and constipation, Back: Negative for injury and pain, : Negative for injury, bleeding, discharge, and swelling, MS/Extremity: Negative for injury and deformity, Neuro: Negative for headache, weakness, numbness, tingling, and seizure, Psych: Negative for depression, anxiety, suicide ideation, homicidal ideation, and hallucinations. 04:34 Skin: Positive for rash, Negative for swelling. 04:34 All other systems are negative. Exam: 04:40 Constitutional: This is a well developed, well nourished patient who is awake, alert, wa and in no acute distress. Head/Face: Normocephalic, atraumatic. Eyes: Pupils equal round and reactive to light, extra-ocular motions intact. Lids and lashes normal. Conjunctiva and sclera are non-icteric and not injected. Cornea within normal limits. Periorbital areas with no swelling, redness, or edema. ENT: Nares patent. No nasal discharge, no septal abnormalities noted. Tympanic membranes are normal and external auditory canals are clear. Oropharynx with no redness, swelling, or masses, exudates, or evidence of obstruction, uvula midline. Mucous membranes moist. Neck: Trachea midline, no thyromegaly or masses palpated, and no cervical lymphadenopathy. Supple, full range of motion without nuchal rigidity, or vertebral point tenderness. No Meningismus. Chest/axilla: Normal chest wall appearance and motion. Nontender with no deformity. No lesions are appreciated. Cardiovascular: Regular rate and rhythm with a normal S1 and S2. No gallops, murmurs, or rubs. Normal PMI, no JVD. No pulse deficits. Respiratory: Lungs have equal breath sounds bilaterally, clear to auscultation and percussion. No rales, rhonchi or wheezes noted. No increased work of breathing, no retractions or nasal flaring. Abdomen/GI: Soft, non-tender, with normal bowel sounds. No distension or tympany. No guarding or rebound. No evidence of tenderness throughout. Back: No spinal tenderness. No costovertebral tenderness. Full range of motion. MS/ Extremity: Pulses equal, no cyanosis. Neurovascular intact. Full, normal range of motion. Neuro: Awake and alert, GCS 15, oriented to person, place, time, and situation. Cranial nerves II-XII grossly intact. Motor strength 5/5 in all extremities. Sensory grossly intact. Cerebellar exam normal. Normal gait. Psych: Awake, alert, with orientation to person, place and time. Behavior, mood, and affect are within normal limits. 04:40 Skin: rash can be described as erythematous, excoriated, papular, raised, on the bothe legs, arms, buttocks and lower back. spares the palms and soles. Vital Signs: 02:30 BP 138 / 81; Pulse 86; Resp 17; Temp 98.6; Pulse Ox 98% ; Weight 65.77 kg; Height 6 ft. rr5 1 in. (185.42 cm); Pain 6/10; 02:39 BP 120 / 78; Pulse 72; Resp 19; Pulse Ox 96% ; rr5 02:30 Body Mass Index 19.13 (65.77 kg, 185.42 cm) rr5 MDM: 02:26 Patient medically screened. mi 04:41 Differential diagnosis: parasite infection, suspect mite bites. will try permethrin and wa advise close f/u. 04:42 Data reviewed: vital signs, nurses notes. mi Administered Medications: No medications were administered Disposition: 09/23/18 02:34 Discharged to Home. Impression: Rash and other nonspecific skin eruption. - Condition is Stable. - Discharge Instructions: Rash. - Prescriptions for permethrin 5 % Topical cream - apply 1 tube by TOPICAL route once wkly leave on for 8-14 hr, then remove by thorough washing. repeat in 1 week if not resolved; 1 tube. cetirizine 10 mg Oral tablet - take 1 tablet by ORAL route once daily; 20 tablet. - Medication Reconciliation Form, Thank You Letter, Antibiotic Education, Prescription Opioid Use form. - Follow up: Private Physician; When: 2 - 3 days; Reason: Recheck today's complaints. - Problem is new. - Symptoms have improved. Signatures: Monty Abrams MD MD wa Roque, Raymond RN RN rr5 Corrections: (The following items were deleted from the chart) 02:52 02:34 09/23/2018 02:34 Discharged to Home. Impression: Rash and other nonspecific skin rr5 eruption. Condition is Stable. Forms are Medication Reconciliation Form, Thank You Letter, Antibiotic Education, Prescription Opioid Use. Follow up: Private Physician; When: 2 - 3 days; Reason: Recheck today's complaints. Problem is new. Symptoms have improved. wa
== END 2018-09-23 02:52 | disposition home or self-care (01) ==
LOC: ER 02:13
DX: R21 Rash and other nonspecific skin eruption (principal)
CPT/HCPCS: 99282

== ENCOUNTER 2018-12-14 01:40 | Emergency (ER) | payer SELFPAY ==
[2018-12-14] MEDS ORDERED: LIDOCAINE 1% MPF 30 ML VIAL ONE (02:38)
[2018-12-14] MEDS ORDERED: LIDOCAINE 1% W/EPI 1:100,000 MDV 20 ML VIAL ONE (04:07)
--- NOTE | 2018-12-14 04:59 | EDPHYS ---
Physician Documentation [facility] Name: Dominguez Easton Age: 23 yrs Sex: Male : 1995 Arrival Date: 12/14/2018 Time: 01:50 Bed 4 Private MD: ED Physician Jl Angeles HPI: 12/14 02:20 This 23 yrs old Male presents to ER via Ambulatory with complaints of chin cp laceration. 02:20 The patient or guardian reports injury, a laceration, irregular, pain, tenderness. The cp complaints affect the chin and left jaw. 02:20 Context of injury: resulted from a fall, while running. Onset: The symptoms/episode cp began/occurred just prior to arrival. Associated signs and symptoms: Loss of consciousness: This patient did not experience any loss of consciousness. Pertinent positives: neck pain, Pertinent negatives: patient denies any alcohol consumption, vomiting. Patient reports he was running on deck near water when he slipped and fell striking chin. Patient reports history of jaw fracture in the past with hardware placed. Historical: - Allergies: 01:52 No Known Allergies; fc - Home Meds: 01:52 None [Active]; fc - PMHx: 01:52 ADD/ADHD; Bipolar disorder; Migraines; fc - PSHx: 01:52 None; fc - Immunization history:: Adult Immunizations up to date. - Social history:: Smoking status: Patient/guardian denies using tobacco, never smoked. - Ebola Screening: : Patient negative for fever greater than or equal to 101.5 degrees Fahrenheit, and additional compatible Ebola Virus Disease symptoms. ROS: 02:25 Constitutional: Negative for body aches, chills, fever, poor PO intake. cp 02:25 Eyes: Negative for injury, pain, redness, and discharge. cp 02:25 ENT: Positive for left jaw pain. 02:25 Neck: Positive for pain with movement, pain at rest. 02:25 Cardiovascular: Negative for chest pain, palpitations. 02:25 Respiratory: Negative for cough, shortness of breath, wheezing. 02:25 Abdomen/GI: Negative for abdominal pain, vomiting. 02:25 Back: Negative for pain at rest, pain with movement. 02:25 Skin: Positive for laceration(s), of the facial chin. 02:25 Neuro: Negative for loss of consciousness. 02:25 All other systems are negative. Exam: 02:35 Constitutional: The patient appears in no acute distress, alert, awake, well developed, cp well nourished. 02:35 Head/face: Noted is a laceration(s), that is deep, of the chin, tenderness, that is cp moderate, of the left jaw. 02:35 Eyes: Periorbital structures: appear normal, Pupils: equal, round, and reactive to light and accomodation, Extraocular movements: intact throughout, Conjunctiva: normal, no exudate, no injection, Lids and lashes: appear normal, bilaterally. 02:35 ENT: External ear(s): are unremarkable, Ear canal(s): are normal, clear, TM's: bulging, is not appreciated, bilaterally, dullness, bilaterally, erythema, is not appreciated, bilaterally, Nose: is normal, Mouth: is normal, Posterior pharynx: is normal, airway is patent, no erythema, no exudate, Dental exam: dental caries, that is moderate, diffusely, fractured teeth are noted, not appreciated, pain, is not appreciated. 02:35 Neck: External neck: crepitus, is not appreciated, tenderness, that is mild, of the left mid cervical area, left trapezius, lower cervical area and left side of neck, C-spine: C-collar placed in ED. 02:35 Chest/axilla: Inspection: normal, Palpation: is normal, no crepitus, no tenderness. 02:35 Cardiovascular: Rate: normal, Rhythm: regular. 02:35 Respiratory: the patient does not display signs of respiratory distress, Respirations: normal, no use of accessory muscles, no retractions, no splinting, no tachypnea, labored breathing, is not present, Breath sounds: are clear throughout, no decreased breath sounds, no stridor, no wheezing. 02:35 Abdomen/GI: Inspection: abdomen appears normal, Palpation: abdomen is soft and non-tender, in all quadrants. 02:35 Back: pain, is absent, ROM is normal. 02:35 Neuro: Orientation: to person, place \T\ time. Mentation: is normal, Cerebellar function: is grossly normal, Motor: moves all fours, strength is normal, Sensation: is normal. Vital Signs: 01:59 BP 126 / 81; Pulse 83; Resp 18; Temp 98.3; Pulse Ox 97% ; Weight 68.04 kg; Height 6 ft. fc 1 in. (185.42 cm); Pain 10/10; 04:30 BP 117 / 79; Pulse 85; Resp 16; Temp 98.4; Pulse Ox 98% on R/A; Pain 0/10; aa1 01:59 Body Mass Index 19.79 (68.04 kg, 185.42 cm) Otisco Coma Score: 02:20 Eye Response: spontaneous(4). Verbal Response: oriented(5). Motor Response: obeys cp commands(6). Total: 15. Laceration: 04:54 Wound Repair of 3.5cm ( 1.4in ) subcutaneous laceration to chin. Linear shaped.. Distal cp neuro/vascular/tendon intact. Anesthesia: Wound infiltrated with 7 mls of Lido/Marcaine. Wound prep: Moderate cleansing by me, Wound irrigation by me. Subcutaneous tissue closed with 4 5-0 Vicryl using interrupted sutures and sterile technique. Skin closed with 5 6-0 Prolene using interrupted sutures and sterile technique. Dressed with Bacitracin, 4x4's. Patient tolerated well. MDM: 12/13 02:30 Differential diagnosis: Contusion of Laceration of Intracranial bleed- cerebral cp contusion. 12/14 02:15 Patient medically screened. [facility] 04:56 Data reviewed: vital signs, nurses notes, radiologic studies, CT scan, I have discussed cp the patient's presentation/case with the attending Emergency Department Physician; and as a result, I will discharge patient. 04:56 Counseling: I had a detailed discussion with the patient and/or guardian regarding: the cp historical points, exam findings, and any diagnostic results supporting the discharge/admit diagnosis, radiology results, to return to the emergency department if symptoms worsen or persist or if there are any questions or concerns that arise at home. Response to treatment: the patient's symptoms have markedly improved after treatment, and as a result, I will discharge patient. 12/14 02:17 Order name: CT Head C Spine 12/14 02:17 Order name: CT Facial Bones W/O Con 12/14 02:17 Order name: Dressing - Wound; Complete Time: 02:38 12/14 02:17 Order name: Gloves, Sterile; Complete Time: 03:26 12/14 02:17 Order name: Setup Suture Tray; Complete Time: 02:38 cp Administered Medications: 04:10 Drug: Bupivacaine (0.5 %) 10 ml Volume: 10 ml; Route: Infiltration; aa1 04:10 Drug: Lidocaine-Epinephrine -1%: (1:100,000) 10 ml Volume: 20 ml; Route: Infiltration; aa1 05:07 Drug: Doxycycline 100 mg Route: PO; aa1 05:10 Follow up: Response: Medication administered at discharge. aa1 05:10 Drug: Ibuprofen 800 mg Route: PO; aa1 05:10 Follow up: Response: Medication administered at discharge. aa1 05:10 Drug: Tylenol 1000 mg Route: PO; aa1 05:10 Follow up: Response: Medication administered at discharge. aa1 Disposition: 05:15 Chart complete. cp Disposition: 12/14/18 04:57 Discharged to Home. Impression: Laceration without foreign body of other part of head - chin, Fall on same level from slipping, tripping and stumbling. - Condition is Stable. - Discharge Instructions: Facial Laceration. - Prescriptions for Ibuprofen 800 mg Oral Tablet - take 1 tablet by ORAL route every 8 hours As needed take with food; 30 tablet. Doxycycline Monohydrate 100 mg Oral Tablet - take 1 tablet by ORAL route every 12 hours for 10 days; 20 tablet. - Medication Reconciliation Form, Thank You Letter, Antibiotic Education, Prescription Opioid Use form. - Work release form (12/15/18 12:38). eb - Follow up: Private Physician; When: 7 - 10 days; Reason: Staple/Suture removal. - Problem is new. - Symptoms have improved. Addendum: 12/16/2018 08:39 Co-signature as Attending Physician, Jl Angeles MD I agree with the assessment and c westfall plan of care. Signatures: Dispatcher [employer] EDDottie Milner RN RN aa1 Jl Angeles MD MD cha Chretien, Felicia RN RN Jl Agosto PA PA cp Botello, Elizabeth eb Corrections: (The following items were deleted from the chart) 12/14 05:13 04:57 12/14/2018 04:57 Discharged to Home. Impression: Laceration without foreign body aa1 of other part of head - chin; Fall on same level from slipping, tripping and stumbling. Condition is Stable. Forms are Medication Reconciliation Form, Thank You Letter, Antibiotic Education, Prescription Opioid Use. Follow up: Private Physician; When: 7 - 10 days; Reason: Staple/Suture removal. Problem is new. Symptoms have improved. cp
--- NOTE | 2018-12-14 04:59 | ER ---
Nurse's Notes [facility] Name: Dominguez Easton Age: 23 yrs Sex: Male : 1995 Arrival Date: 12/14/2018 Time: 01:50 Bed 4 Private MD: Diagnosis: Laceration without foreign body of other part of head-chin;Fall on same level from slipping, tripping and stumbling Presentation: 12/14 01:51 Presenting complaint: Patient states: LACERATION TO CHIN, PAIN LEFT SIDE OF JAW, AND fc RIGHT BIG TOE S/P SLIPPING AND FALLING ON A DOCK JUST [employer]OCIATE. Transition of care: patient was not received from another setting of care. Onset of symptoms was December 14, 2018. Risk Assessment: Do you want to hurt yourself or someone else? Patient reports no desire to harm self or others. Initial Sepsis Screen: Does the patient meet any 2 criteria? No. Patient's initial sepsis screen is negative. Care prior to arrival: None. 01:51 Method Of Arrival: Ambulatory 01:51 Acuity: SACHI 3 fc Triage Assessment: 01:52 General: Appears in no apparent distress. fc 01:59 General: Behavior is calm, cooperative. Pain: Complains of pain in left ear and chin. fc EENT: No deficits noted. Neuro: No deficits noted. Cardiovascular: No deficits noted. Respiratory: No deficits noted. GI: No deficits noted. : No deficits noted. Derm: No deficits noted. Musculoskeletal: No deficits noted. Injury Description: Abrasion sustained to Right first toenail Laceration sustained to chin. Historical: - Allergies: 01:52 No Known Allergies; - Home Meds: 01:52 None [Active]; fc - PMHx: 01:52 ADD/ADHD; Bipolar disorder; Migraines; fc - PSHx: 01:52 None; fc - Immunization history:: Adult Immunizations up to date. - Social history:: Smoking status: Patient/guardian denies using tobacco, never smoked. - Ebola Screening: : Patient negative for fever greater than or equal to 101.5 degrees Fahrenheit, and additional compatible Ebola Virus Disease symptoms. Screenin:00 Abuse screen: Denies threats or abuse. Denies injuries from another. Nutritional aa1 screening: No deficits noted. Tuberculosis screening: No symptoms or risk factors identified. Fall Risk Fall in past 12 months (25 points). Assessment: 02:00 General: Appears in no apparent distress. comfortable, slender, Behavior is aa1 cooperative, appropriate for age, anxious. Pain: Complains of pain in face and chin. Neuro: Level of Consciousness is awake, alert, obeys commands, Oriented to person, place, time, situation, Moves all extremities. Full function Gait is steady, Speech is normal, Pupils are PERRLA. Respiratory: Airway is patent Respiratory effort is even, unlabored, Respiratory pattern is regular, symmetrical. GI: No signs and/or symptoms were reported involving the gastrointestinal system. : No signs and/or symptoms were reported regarding the genitourinary system. EENT: No signs and/or symptoms were reported regarding the EENT system. Derm: Skin is intact, is healthy with good turgor, Skin is pink, warm \T\ dry. Musculoskeletal: Circulation, motion, and sensation intact. Capillary refill < 3 seconds, Range of motion: intact in all extremities. Injury Description: Abrasion sustained to right foot and face and left ear Laceration sustained to chin is jagged, 0.5 to 2.5 cm long, not bleeding. 03:15 Reassessment: Patient appears in no apparent distress at this time. Patient and/or aa1 family updated on plan of care and expected duration. Pain level reassessed. Patient is alert, oriented x 3, equal unlabored respirations, skin warm/dry/pink. Awaiting provider for lac repair. 04:10 Reassessment: Patient appears in no apparent distress at this time. Patient and/or aa1 family updated on plan of care and expected duration. Pain level reassessed. Patient is alert, oriented x 3, equal unlabored respirations, skin warm/dry/pink. PA at bedside for lac repair. 05:11 Reassessment: Patient appears in no apparent distress at this time. Patient is alert, aa1 oriented x 3, equal unlabored respirations, skin warm/dry/pink. Discussed d/c \T\ f/u instructions with pt; denies questions or concerns at this time. Ambulatory to lobby with steady gait Patient states feeling better. Vital Signs: 01:59 BP 126 / 81; Pulse 83; Resp 18; Temp 98.3; Pulse Ox 97% ; Weight 68.04 kg; Height 6 ft. fc 1 in. (185.42 cm); Pain 10/10; 04:30 BP 117 / 79; Pulse 85; Resp 16; Temp 98.4; Pulse Ox 98% on R/A; Pain 0/10; aa1 01:59 Body Mass Index 19.79 (68.04 kg, 185.42 cm) fc Dewar Coma Score: 02:20 Eye Response: spontaneous(4). Verbal Response: oriented(5). Motor Response: obeys cp commands(6). Total: 15. ED Course: 01:50 Patient arrived in ED. fc 01:52 Triage completed. fc 01:57 Jl Agosto PA is PHCP. cp 01:57 Jl Angeles MD is Attending Physician. cp 01:59 Arm band placed on right wrist. fc 02:00 Patient has correct armband on for positive identification. Bed in low position. Call aa1 light in reach. Pulse ox on. NIBP on. Warm blanket given. 02:13 Dottie Hilton, RN is Primary Nurse. aa1 03:11 CT Head C Spine In Process Unspecified. EDMS 03:11 CT Facial Bones W/O Con In Process Unspecified. EDMS 04:10 Assist provider with laceration repair on chin that was 2.5 cm. or less using sutures. aa1 Set up tray. Performed by Jl SWANSON Patient tolerated well. 04:30 Patient did not have IV access during this emergency room visit. aa1 Administered Medications: 04:10 Drug: Bupivacaine (0.5 %) 10 ml Volume: 10 ml; Route: Infiltration; aa1 04:10 Drug: Lidocaine-Epinephrine -1%: (1:100,000) 10 ml Volume: 20 ml; Route: Infiltration; aa1 05:07 Drug: Doxycycline 100 mg Route: PO; aa1 05:10 Follow up: Response: Medication administered at discharge. aa1 05:10 Drug: Ibuprofen 800 mg Route: PO; aa1 05:10 Follow up: Response: Medication administered at discharge. aa1 05:10 Drug: Tylenol 1000 mg Route: PO; aa1 05:10 Follow up: Response: Medication administered at discharge. aa1 Outcome: 04:57 Discharge ordered by . cp 05:10 Discharged to home ambulatory. aa1 05:10 Condition: good 05:10 Discharge instructions given to patient, Instructed on discharge instructions, follow up and referral plans. medication usage, wound care, Demonstrated understanding of instructions, follow-up care, medications, wound care, Prescriptions given X 2. 05:13 Patient left the ED. aa1 Signatures: Dispatcher [employer] EDDottie Milner RN RN aa1 Pamela Dinh RN RN fc Page, Corey, KIKI SWANSON cp
[2018-12-14] MEDS ORDERED: IBUPROFEN 400 MG TAB ONE (05:05)
[2018-12-14] MEDS ORDERED: ACETAMINOPHEN 500 MG TAB ONE (05:05)
[2018-12-14] MEDS ORDERED: DOXYCYCLINE 100 MG CAP PO ONE (05:05)
[2018-12-14 06:03] VITALS: BP 117/79; TEMP 98.4; O2SAT 98
--- NOTE | 2018-12-16 10:27 | RAD REPORT ---
EXAM DESCRIPTION: CT - Facial Bones W/ Mpr - 12/14/2018 6:56 am CLINICAL HISTORY: Fall, chin laceration COMPARISON: None Available. TECHNIQUE: Multiple helical axial tomographic images were obtained of the head, facial bones, and ce rvical spine without intravenous contrast. Coronal and sagittal reformatted images were obtained. Thi s exam was performed according to our departmental dose-optimization program, which includes automate d exposure control, adjustment of the mA and/or kV according to patient size and/or use of iterative reconstruction technique. FINDINGS: There is no acute intracranial hemorrhage. No mass. No midline shift. No ventriculomegaly. Benton-white matter differentiation is maintained. No evidence for an acute facial bone fracture. Plate and screw fixation of the mandible is noted. No obvious hardware failure. A few small left maxillary sinus mucous retention cysts are present. Mastoi d air cells and middle ear spaces are clear. Orbits and orbital contents are unremarkable. No acute calvarial fracture. No evidence for an acute fracture of the cervical spine. No subluxation. There is partial osseous fus ion of the C5-C6 vertebral bodies. Central canal appears grossly patent. There is an area of soft tissue swelling and subcutaneous air near the right anterior mandibular body suggestive of soft tissue contusion and laceration. IMPRESSION: 1. No acute intracranial process. 2. No evidence for an acute facial bone fracture. 3. No evidence for an acute fracture of the cervical spine. Electronically signed by: Quintin Grigsby MD 12/14/2018 3:53 AM CDT Due to temporary technical issues with the PACS/Fluency reporting system, reports are being signed by the in house radiologist as a courtesy to ensure prompt reporting. The interpreting radiologist is f ully responsible for the content of the report.
--- NOTE | 2018-12-16 10:29 | RAD REPORT ---
EXAM DESCRIPTION: CT - Head C Spine Mpr Wo Con - 12/14/2018 6:56 am CLINICAL HISTORY: Fall, chin laceration COMPARISON: None Available. TECHNIQUE: Multiple helical axial tomographic images were obtained of the head, facial bones, and ce rvical spine without intravenous contrast. Coronal and sagittal reformatted images were obtained. Thi s exam was performed according to our departmental dose-optimization program, which includes automate d exposure control, adjustment of the mA and/or kV according to patient size and/or use of iterative reconstruction technique. FINDINGS: There is no acute intracranial hemorrhage. No mass. No midline shift. No ventriculomegaly. Benton-white matter differentiation is maintained. No evidence for an acute facial bone fracture. Plate and screw fixation of the mandible is noted. No obvious hardware failure. A few small left maxillary sinus mucous retention cysts are present. Mastoi d air cells and middle ear spaces are clear. Orbits and orbital contents are unremarkable. No acute calvarial fracture. No evidence for an acute fracture of the cervical spine. No subluxation. There is partial osseous fus ion of the C5-C6 vertebral bodies. Central canal appears grossly patent. There is an area of soft tissue swelling and subcutaneous air near the right anterior mandibular body suggestive of soft tissue contusion and laceration. IMPRESSION: 1. No acute intracranial process. 2. No evidence for an acute facial bone fracture. 3. No evidence for an acute fracture of the cervical spine. Electronically signed by: Quintin Grigsby MD 12/14/2018 3:53 AM CDT Due to temporary technical issues with the PACS/Fluency reporting system, reports are being signed by the in house radiologist as a courtesy to ensure prompt reporting. The interpreting radiologist is f ully responsible for the content of the report.
== END 2018-12-14 05:13 | disposition home or self-care (01) ==
LOC: ER 01:40
PROC: 0JQ10ZZ Repair Face Subcutaneous Tissue and Fascia, Open Approach (ICD-10-PCS; principal; 2018-12-14)
DX: S01.81XA Laceration without foreign body of other part of head, initial encounter (principal); W01.198A Fall on same level from slipping, tripping and stumbling with subsequent striking against other object, initial encounter; Y93.02 Activity, running; Y92.89 Other specified places as the place of occurrence of the external cause
CPT/HCPCS: 70450; 70486; 72125; 76377; 99284

== ENCOUNTER 2019-01-10 13:57 | Emergency (ER) | payer SELFPAY ==
--- NOTE | 2019-01-10 14:29 | ER ---
Nurse's Notes [facility] Name: Dominguez Easton Age: 23 yrs Sex: Male : 1995 Arrival Date: 01/10/2019 Time: 13:58 Bed 11 Private MD: Diagnosis: Encounter for removal of sutures Presentation: 01/10 14:15 Presenting complaint: Sutures on chin 12/14, here for removal. Transition of care: hb patient was not received from another setting of care. Onset of symptoms was January 10, 2019. Risk Assessment: Do you want to hurt yourself or someone else? Patient reports no desire to harm self or others. Initial Sepsis Screen: Does the patient meet any 2 criteria? No. Patient's initial sepsis screen is negative. Does the patient have a suspected source of infection? No. Patient's initial sepsis screen is negative. Care prior to arrival: None. 14:15 Method Of Arrival: Ambulatory hb 14:15 Acuity: SACHI 4 hb Triage Assessment: 14:17 General: Appears in no apparent distress. Behavior is calm, cooperative. Pain: Denies hb pain. Neuro: Level of Consciousness is awake, alert, obeys commands, Oriented to person, place, time, situation. Cardiovascular: Capillary refill < 3 seconds Patient's skin is warm and dry. Respiratory: Airway is patent Respiratory effort is even, unlabored, Respiratory pattern is regular, symmetrical. Derm: sutures to bottom of chin noted. Historical: - Allergies: 14:15 No Known Allergies; hb - PMHx: 14:15 ADD/ADHD; Bipolar disorder; Migraines; hb - PSHx: 14:15 None; hb - Immunization history:: Adult Immunizations up to date. - Social history:: Smoking status: Patient/guardian denies using tobacco. - Ebola Screening: : No symptoms or risks identified at this time. Screenin:17 Abuse screen: Denies threats or abuse. Denies injuries from another. Nutritional hb screening: No deficits noted. Tuberculosis screening: No symptoms or risk factors identified. Fall Risk None identified. Assessment: 14:17 General: see triage assessment. hb Vital Signs: 14:15 BP 129 / 83; Pulse 70; Resp 16; Temp 97.8; Pulse Ox 99% on R/A; Weight 68.04 kg; Height hb 6 ft. 1 in. (185.42 cm); Pain 0/10; 14:15 Body Mass Index 19.79 (68.04 kg, 185.42 cm) hb ED Course: 13:58 Patient arrived in ED. rg4 14:15 Triage completed. hb 14:15 Arm band placed on. hb 14:17 Patient has correct armband on for positive identification. hb 14:17 No provider procedures requiring assistance completed. Patient did not have IV access hb during this emergency room visit. 14:19 Enzo Thompson PA is PHCP. [facility] 14:19 Aram Barillas MD is Attending Physician. [facility] 14:35 Citlali Pedroza, RN is Primary Nurse. hb Administered Medications: No medications were administered Outcome: 14:29 Discharge ordered by . [facility] 14:41 Discharged to home ambulatory. hb 14:41 Condition: stable 14:41 Discharge instructions given to patient, Instructed on discharge instructions, follow up and referral plans. Demonstrated understanding of instructions, follow-up care. 14:41 Patient left the ED. hb Signatures: Enzo Thompson PA PA [facility] Citlali Pedroza, RN RN Sheryl Singh rg4
--- NOTE | 2019-01-10 14:30 | EDPHYS ---
Physician Documentation [facility] Name: Dominguez Easton Age: 23 yrs Sex: Male : 1995 Arrival Date: 01/10/2019 Time: 13:58 Bed 11 Private MD: ED Physician Aram Barillas HPI: 01/10 14:28 This 23 yrs old Male presents to ER via Ambulatory with complaints of Suture jmm Removal. 14:28 The patient has sutures on the chin. Previous treatment: 1 month ago. Sutures/nahum jmm progress: The patient has no c/o's. The wound is well-healing with no redness, swelling, discharge, or dehiscence reported. The patient has not experienced similar symptoms in the past. Historical: - Allergies: 14:15 No Known Allergies; hb - PMHx: 14:15 ADD/ADHD; Bipolar disorder; Migraines; hb - PSHx: 14:15 None; hb - Immunization history:: Adult Immunizations up to date. - Social history:: Smoking status: Patient/guardian denies using tobacco. - Ebola Screening: : No symptoms or risks identified at this time. ROS: 14:28 Constitutional: Negative for fever, chills, and weight loss, Cardiovascular: Negative jmm for chest pain, palpitations, and edema, Respiratory: Negative for shortness of breath, cough, wheezing, and pleuritic chest pain. 14:28 All other systems are negative. Exam: 14:28 Constitutional: This is a well developed, well nourished patient who is awake, alert, jmm and in no acute distress. 14:28 Eyes: EOMI, no conjunctival erythema appreciated ENT: Moist Mucus Membranes Neck: Trachea midline, Supple Chest/axilla: Normal chest wall appearance and motion. Cardiovascular: Regular rate and rhythm. No edema appreciated Respiratory: Normal respirations, no respiratory distress appreciated Abdomen/GI: Non distended, soft Back: Normal ROM MS/ Extremity: Moves all extremities, no obvious deformities appreciated, no edema noted to the lower extremities Neuro: Awake and alert, normal gait Psych: Behavior is normal, Mood is normal, Patient is cooperative and pleasant 14:28 Head/face: 3 sutures noted to the chin. no purulent discharge appreciated. 14:28 Skin: Appearance: Color: 14:28 Neuro: Orientation: is normal, Mentation: is normal, Memory: is normal. 14:28 Psych: Behavior/mood is pleasant, cooperative. Vital Signs: 14:15 BP 129 / 83; Pulse 70; Resp 16; Temp 97.8; Pulse Ox 99% on R/A; Weight 68.04 kg; Height hb 6 ft. 1 in. (185.42 cm); Pain 0/10; 14:15 Body Mass Index 19.79 (68.04 kg, 185.42 cm) hb Procedures: 17:55 Suture/Staple removal: Removed 3 sutures, from chin, site appears well healed, Patient kimmie tolerated well. MDM: 14:28 Patient medically screened. kimmie 14:28 Data reviewed: vital signs, nurses notes. Counseling: I had a detailed discussion with kimmie the patient and/or guardian regarding: the historical points, exam findings, and any diagnostic results supporting the discharge/admit diagnosis, the need for outpatient follow up, to return to the emergency department if symptoms worsen or persist or if there are any questions or concerns that arise at home. Administered Medications: No medications were administered Disposition: 01/10/19 14:29 Discharged to Home. Impression: Encounter for removal of sutures. - Condition is Stable. - Discharge Instructions: Suture Removal, Care After. - Medication Reconciliation Form, Thank You Letter, Antibiotic Education, Prescription Opioid Use form. - Follow up: Private Physician; When: 2 - 3 days; Reason: Recheck today's complaints, Continuance of care, Re-evaluation by your physician. Addendum: 01/12/2019 06:55 Co-signature as Attending Physician, Aram Barillas MD. g s Signatures: Enzo Thompson PA PA jmm Baxter, Heather RN RN Aram Barillas MD MD Corrections: (The following items were deleted from the chart) 01/10 14:41 14:29 01/10/2019 14:29 Discharged to Home. Impression: Encounter for removal of hb sutures. Condition is Stable. Forms are Medication Reconciliation Form, Thank You Letter, Antibiotic Education, Prescription Opioid Use. Follow up: Private Physician; When: 2 - 3 days; Reason: Recheck today's complaints, Continuance of care, Re-evaluation by your physician. kimmie
[2019-01-10 14:45] VITALS: BP 129/83; TEMP 97.8; O2SAT 99
== END 2019-01-10 14:41 | disposition home or self-care (01) ==
LOC: ER 13:57
DX: Z48.02 Encounter for removal of sutures (principal)
CPT/HCPCS: 99281

== ENCOUNTER 2019-06-15 03:13 | Emergency (ER) | payer SELFPAY ==
--- NOTE | 2019-06-15 03:47 | ER ---
Nurse's Notes [facility] Name: Dominguez Easton Age: 24 yrs Sex: Male : 1995 Arrival Date: 06/15/2019 Time: 03:18 Bed 18 Private MD: Diagnosis: Sprain of ligaments of thoracic spine Presentation: 06/14 03:25 Chief complaint: Patient states: I have severe back pain started today it gets worse rr5 now pain score 8/10. denies trauma, denies urine problem. known case of chronic back pain. 03:25 Coronavirus screen: The patient has NOT traveled to a country currently being monitored rr5 by the [facility] within the last 14 days. Proceed with normal triage procedures. Ebola Screen: Patient negative for fever greater than or equal to 101.5 degrees Fahrenheit, and additional compatible Ebola Virus Disease symptoms Patient denies exposure to infectious person. Patient denies travel to an Ebola-affected area in the 21 days before illness onset. Initial Sepsis Screen: Does the patient meet any 2 criteria? No. Patient's initial sepsis screen is negative. Does the patient have a suspected source of infection? No. Patient's initial sepsis screen is negative. Risk Assessment: Do you want to hurt yourself or someone else? Patient reports no desire to harm self or others. Onset of symptoms was June 15, 2019. 03:25 Method Of Arrival: Ambulatory rr5 03:25 Acuity: SACHI 4 rr5 Historical: - Allergies: 03:30 No Known Allergies; rr5 - Home Meds: 03:30 None [Active]; rr5 - PMHx: 03:30 ADD/ADHD; Bipolar disorder; Migraines; rr5 - PSHx: 03:30 None; rr5 - Immunization history:: Adult Immunizations up to date. - Social history:: Smoking status: unknown Patient uses alcohol, Patient/guardian denies using street drugs. Screenin:30 Abuse screen: Denies threats or abuse. Denies injuries from another. Nutritional rr5 screening: No deficits noted. Tuberculosis screening: No symptoms or risk factors identified. Fall Risk None identified. Total Fajardo Fall Scale indicates No Risk (0-24 pts). Assessment: 03:30 General: Appears in no apparent distress. uncomfortable, Behavior is calm, cooperative, rr5 appropriate for age. 03:30 Pain: Complains of pain in back Pain currently is 8 out of 10 on a pain scale. Quality rr5 of pain is described as sharp, Pain began 1 day ago. Is intermittent. Neuro: Level of Consciousness is awake, alert, obeys commands, Oriented to person, place, time, situation, Appropriate for age. Cardiovascular: Capillary refill < 3 seconds Patient's skin is warm and dry. Respiratory: Airway is patent Respiratory effort is even, unlabored, Respiratory pattern is regular, symmetrical. GI: No signs and/or symptoms were reported involving the gastrointestinal system. : No signs and/or symptoms were reported regarding the genitourinary system. EENT: No signs and/or symptoms were reported regarding the EENT system. Derm: Skin is intact, is healthy with good turgor, Skin temperature is warm. Musculoskeletal: Circulation, motion, and sensation intact. Capillary refill < 3 seconds, Reports pain in back. Vital Signs: 03:25 BP 142 / 89; Pulse 65; Resp 17; Temp 98.4; Pulse Ox 98% ; Weight 68.04 kg; Height 6 ft. rr5 1 in. (185.42 cm); Pain 8/10; 03:25 Body Mass Index 19.79 (68.04 kg, 185.42 cm) rr5 ED Course: 03:18 Patient arrived in ED. abrahan 03:19 Jacek Gregg, RN is Primary Nurse. rr5 03:20 Partha Lee MD is Attending Physician. tw4 03:30 Patient has correct armband on for positive identification. Bed in low position. Call rr5 light in reach. 03:32 Triage completed. rr5 03:32 Arm band placed on right wrist. rr5 03:39 No provider procedures requiring assistance completed. Patient did not have IV access rr5 during this emergency room visit. Administered Medications: No medications were administered Outcome: 03:40 Medical screen evaluation completed per provider. Patient chooses to be treated. rr5 03:40 unknown 03:40 Following a medical screening exam, the patient was provided information regarding alternative care sites and resources available per registration personnel. 03:46 Discharge ordered by . tw4 03:47 Patient left the ED. rr5 Signatures: Meche Meeks Terrence, MD MD tw4 Jacek Gregg, RN RN rr5
--- NOTE | 2019-06-15 03:47 | EDPHYS ---
Physician Documentation [facility] Name: Dominguez Easton Age: 24 yrs Sex: Male : 1995 Arrival Date: 06/15/2019 Time: 03:18 Bed 18 Private MD: ED Physician Partha Lee HPI: 06/14 03:31 This 24 yrs old Male presents to ER via Unassigned with complaints of Back tw4 Pain. 03:31 The patient presents with pain that is acute. tw4 03:39 The symptoms are located in the right scapular area. Onset: The symptoms/episode tw4 began/occurred 2 week(s) ago. The pain radiates to the right scapular area. Associated signs and symptoms: The patient has no apparent associated signs or symptoms. The problem was sustained when bending over. Modifying factors: The patient symptoms are alleviated by rest. Severity of symptoms: At their worst the symptoms were moderate, in the emergency department the symptoms are unchanged. The patient has not experienced similar symptoms in the past. Historical: - Allergies: 03:30 No Known Allergies; rr5 - Home Meds: 03:30 None [Active]; rr5 - PMHx: 03:30 ADD/ADHD; Bipolar disorder; Migraines; rr5 - PSHx: 03:30 None; rr5 - Immunization history:: Adult Immunizations up to date. - Social history:: Smoking status: unknown Patient uses alcohol, Patient/guardian denies using street drugs. ROS: 03:39 Constitutional: Negative for fever, chills, and weight loss, Eyes: Negative for injury, tw4 pain, redness, and discharge, Cardiovascular: Negative for chest pain, palpitations, and edema, Respiratory: Negative for shortness of breath, cough, wheezing, and pleuritic chest pain, Abdomen/GI: Negative for abdominal pain, nausea, vomiting, diarrhea, and constipation, MS/Extremity: Negative for injury and deformity, Skin: Negative for injury, rash, and discoloration, Neuro: Negative for headache, weakness, numbness, tingling, and seizure. 03:39 Back: Positive for decreased range of motion, pain at rest, pain with movement, Negative for injury or acute deformity, radiated pain, acute changes. Exam: 03:39 Constitutional: This is a well developed, well nourished patient who is awake, alert, tw4 and in no acute distress. Head/Face: Normocephalic, atraumatic. Chest/axilla: Normal chest wall appearance and motion. Nontender with no deformity. No lesions are appreciated. Cardiovascular: Regular rate and rhythm with a normal S1 and S2. No gallops, murmurs, or rubs. Normal PMI, no JVD. No pulse deficits. Respiratory: Lungs have equal breath sounds bilaterally, clear to auscultation and percussion. No rales, rhonchi or wheezes noted. No increased work of breathing, no retractions or nasal flaring. Abdomen/GI: Soft, non-tender, with normal bowel sounds. No distension or tympany. No guarding or rebound. No evidence of tenderness throughout. MS/ Extremity: Pulses equal, no cyanosis. Neurovascular intact. Full, normal range of motion. Neuro: Awake and alert, GCS 15, oriented to person, place, time, and situation. Cranial nerves II-XII grossly intact. Motor strength 5/5 in all extremities. Sensory grossly intact. Cerebellar exam normal. Normal gait. 03:39 Back: pain, that is mild, of the right scapular area, muscle spasm, is appreciated in the right scapular area. Vital Signs: 03:25 BP 142 / 89; Pulse 65; Resp 17; Temp 98.4; Pulse Ox 98% ; Weight 68.04 kg; Height 6 ft. rr5 1 in. (185.42 cm); Pain 8/10; 03:25 Body Mass Index 19.79 (68.04 kg, 185.42 cm) rr5 MDM: 03:20 Patient medically screened. tw4 03:39 Data reviewed: vital signs, nurses notes. Data interpreted: Pulse oximetry: tw4 Interpretation: normal. Counseling: I had a detailed discussion with the patient and/or guardian regarding: the historical points, exam findings, and any diagnostic results supporting the discharge/admit diagnosis. Medical screen evaluation completed. EMTALA emergency medical condition absent. Administered Medications: No medications were administered Disposition: 06/15/19 03:46 Discharged to Home. Impression: Sprain of ligaments of thoracic spine. - Condition is Stable. - Medication Reconciliation Form, Thank You Letter, Antibiotic Education, Prescription Opioid Use form. - Follow up: Private Physician; When: Upon discharge from the Emergency Department; Reason: Recheck today's complaints, Continuance of care, Re-evaluation by your physician. - Problem is new. - Symptoms are unchanged. Signatures: Partha Lee MD MD tw4 Jacek Gregg RN RN rr5 Corrections: (The following items were deleted from the chart) 03:47 03:46 06/15/2019 03:46 Discharged to Home. Impression: Sprain of ligaments of thoracic rr5 spine. Condition is Stable. Forms are Medication Reconciliation Form, Thank You Letter, Antibiotic Education, Prescription Opioid Use. Follow up: Private Physician; When: Upon discharge from the Emergency Department; Reason: Recheck today's complaints, Continuance of care, Re-evaluation by your physician. Problem is new. Symptoms are unchanged. tw4
[2019-06-15 03:53] VITALS: BP 142/89; TEMP 98.4; O2SAT 98
== END 2019-06-15 03:47 | disposition home or self-care (01) ==
LOC: ER 03:13
DX: S23.3XXA Sprain of ligaments of thoracic spine, initial encounter (principal); X50.1XXA Overexertion from prolonged static or awkward postures, initial encounter; Y93.9 Activity, unspecified; Y92.9 Unspecified place or not applicable
CPT/HCPCS: 99281

== ENCOUNTER 2019-08-07 15:12 | Emergency (ER) | payer SELFPAY ==
--- NOTE | 2019-08-07 16:22 | ER ---
Nurse's Notes [facility] Name: Dominguez Easton Age: 24 yrs Sex: Male : 1995 Arrival Date: 08/07/2019 Time: 15:14 Bed 13 Private MD: Diagnosis: Chalazion left upper eyelid Presentation: 08/06 15:32 Chief complaint: Patient states: left eye redness and upper eyelid swelling that began aa5 yesterday. Coronavirus screen: Proceed with normal triage. Patient denies a cough. Patient denies shortness of breath or difficulty breathing. Patient denies measured and/or subjective temperature greater than 100.4F prior to today's visit. Patient denies travel on a cruise ship or to a country the [facility] currently lists as an affected area. Patient denies contact with known and/or suspected case of COVID-19. Ebola Screen: Patient negative for fever greater than or equal to 101.5 degrees Fahrenheit, and additional compatible Ebola Virus Disease symptoms. Initial Sepsis Screen: Does the patient meet any 2 criteria? No. Patient's initial sepsis screen is negative. Does the patient have a suspected source of infection? No. Patient's initial sepsis screen is negative. Risk Assessment: Do you want to hurt yourself or someone else? Patient reports no desire to harm self or others. Onset of symptoms was August 2019. 15:32 Method Of Arrival: Ambulatory aa5 15:32 Acuity: SACHI 4 aa5 Historical: - Allergies: 15:33 No Known Allergies; aa5 - PMHx: 15:33 ADD/ADHD; Bipolar disorder; Migraines; aa5 - PSHx: 15:33 None; aa5 - Immunization history:: Last tetanus immunization: unknown. - Social history:: Smoking status: Patient denies any tobacco usage or history of. Screenin:11 Abuse screen: Denies threats or abuse. Nutritional screening: No deficits noted. Tuberculosis screening: No symptoms or risk factors identified. Fall Risk None identified. Assessment: 16:08 General: Appears in no apparent distress. Behavior is calm, cooperative. Pain: Complains of pain in left upper eyelid Pain began 1 day ago. Neuro: Level of Consciousness is awake, alert, Oriented to person, place, time, situation. Cardiovascular: Heart tones S1 S2 present. Respiratory: Airway is patent Respiratory effort is even, unlabored, Respiratory pattern is regular, symmetrical. GI: No signs and/or symptoms were reported involving the gastrointestinal system. : No signs and/or symptoms were reported regarding the genitourinary system. EENT: No signs and/or symptoms were reported regarding the EENT system. Derm: No signs and/or symptoms reported regarding the dermatologic system. Musculoskeletal: No signs and/or symptoms reported regarding the musculoskeletal system. 16:30 Reassessment: Attempted to discharge Pt and give prescription and Pt was already gone. Informed provider. Vital Signs: 15:32 BP 126 / 89; Pulse 57; Resp 18 S; Temp 98.3(O); Pulse Ox 98% on R/A; Weight 63.5 kg aa5 (R); Height 6 ft. 2 in. (187.96 cm) (R); 15:32 Body Mass Index 17.97 (63.50 kg, 187.96 cm) aa5 ED Course: 15:14 Patient arrived in ED. as 15:32 Arm band placed on. aa 15:33 Triage completed. [facility] 16:04 Maribel Choi, RN is Primary Nurse. 16:07 Jl Agosto PA is PHCP. 16:07 Rick Alonzo MD is Attending Physician. cp 16:11 Patient has correct armband on for positive identification. Bed in low position. Call light in reach. 16:15 No provider procedures requiring assistance completed. Patient did not have IV access during this emergency room visit. 16:20 Louise Santiago MD is Referral Physician. cp Administered Medications: No medications were administered Outcome: 16:21 Discharge ordered by . 16:30 Eloped from patient exam room, after seeing physician Time discovered patient gone: July 2019 at 16:30 16:30 Condition: stable 16:30 Discharge instructions given to pt left before receiving discharge instructions 16:58 Patient left the ED. iw Signatures: Nicolasa Ortiz Irene, RN RN Abimbola Schwartz RN RN [facility] Jl Agosto PA PA cp Maribel Choi RN RN Corrections: (The following items were deleted from the chart) 15:33 15:32 BP 126 / 89; Pulse 57bpm; Resp 18bpm; Spontaneous; Pulse Ox 98% RA; Temp 98.3F aa5 Oral; aa5
--- NOTE | 2019-08-07 16:22 | EDPHYS ---
Physician Documentation [facility] Name: Dominguez Easton Age: 24 yrs Sex: Male : 1995 Arrival Date: 08/07/2019 Time: 15:14 Bed 13 Private MD: ED Physician Rick Alonzo HPI: 08/06 16:12 This 24 yrs old Male presents to ER via Ambulatory with complaints of Eye cp Swelling, Redness of Eye. 16:12 swelling and erythema of left upper eyelid. cp 16:13 Onset: The symptoms/episode began/occurred yesterday. Duration: the symptoms are cp continuous. Associated signs and symptoms: Pertinent positives: clear drainage from eye, Pertinent negatives: ear ache, fever, headache, runny nose, sore throat. Patient does not utilize any form of vision correction. Severity of symptoms: in the emergency department the symptoms are unchanged despite home interventions. Historical: - Allergies: 15:33 No Known Allergies; aa5 - PMHx: 15:33 ADD/ADHD; Bipolar disorder; Migraines; aa5 - PSHx: 15:33 None; aa5 - Immunization history:: Last tetanus immunization: unknown. - Social history:: Smoking status: Patient denies any tobacco usage or history of. ROS: 16:13 Constitutional: Negative for body aches, chills, fever, poor PO intake. cp 16:13 Eyes: Positive for pain, redness, swelling, of the left upper eyelid. 16:13 ENT: Negative for drainage from ear(s), ear pain, sore throat, difficulty swallowing, difficulty handling secretions. 16:13 Respiratory: Negative for cough, shortness of breath, wheezing. 16:13 Neuro: Negative for headache. 16:13 All other systems are negative. Exam: 16:15 Constitutional: The patient appears in no acute distress, alert, awake, non-toxic, well cp developed, well nourished. 16:15 Head/Face: Normocephalic, atraumatic. cp 16:15 Eyes: Periorbital structures: appear normal, Pupils: equal, round, and reactive to light and accomodation, Extraocular movements: intact throughout, Conjunctiva: normal, no exudate, no injection, Sclera: no appreciated abnormality, Lids and lashes: drainage, is not appreciated, mild swelling and erythema noted left upper eyelid. Examination of the other eye reveals no obvious gross abnormality, right eye. 16:15 ENT: External ear(s): are unremarkable, Nose: is normal, Mouth: is normal, Posterior pharynx: Airway: no evidence of obstruction, patent. 16:15 Neck: ROM/movement: is normal, is supple. Vital Signs: 15:32 BP 126 / 89; Pulse 57; Resp 18 S; Temp 98.3(O); Pulse Ox 98% on R/A; Weight 63.5 kg aa5 (R); Height 6 ft. 2 in. (187.96 cm) (R); 15:32 Body Mass Index 17.97 (63.50 kg, 187.96 cm) aa5 MDM: 16:07 Patient medically screened. cp 16:15 Differential diagnosis: Infectious conjunctivitis in left eye. osvaldo lares, cp cellulitis. 16:20 Data reviewed: vital signs, nurses notes, and as a result, I will discharge patient. cp 16:20 Counseling: I had a detailed discussion with the patient and/or guardian regarding: the cp historical points, exam findings, and any diagnostic results supporting the discharge/admit diagnosis, to return to the emergency department if symptoms worsen or persist or if there are any questions or concerns that arise at home. 08/06 16:12 Order name: Visual Acuity cp Administered Medications: No medications were administered Disposition: 16:30 Chart complete. cp 08/07 01:29 Co-signature as Attending Physician, Rick Alonzo MD I agree with the assessment and kdr plan of care. Disposition: 08/07/19 16:21 Discharged to Home. Impression: Chalazion left upper eyelid. - Condition is Stable. - Discharge Instructions: Chalazion. - Prescriptions for Doxycycline Hyclate 100 mg Oral Tablet - take 1 tablet by ORAL route every 12 hours; 20 tablet. - Medication Reconciliation Form, Thank You Letter, Antibiotic Education, Prescription Opioid Use form. - Follow up: Louise Santiago MD; When: 2 - 3 days; Reason: Worsening of condition. - Problem is new. - Symptoms have improved. Signatures: Rick Alonzo MD MD [facility] Areli Darnell RN RN Abimbola Schwartz RN RN aa5 Jl Agosto PA PA cp Corrections: (The following items were deleted from the chart) 08/06 16:58 16:21 08/07/2019 16:21 Discharged to Home. Impression: Chalazion left upper eyelid. iw Condition is Stable. Forms are Medication Reconciliation Form, Thank You Letter, Antibiotic Education, Prescription Opioid Use. Follow up: Louise Santiago; When: 2 - 3 days; Reason: Worsening of condition. Problem is new. Symptoms have improved. cp
[2019-08-08 04:57] VITALS: BP 126/89; TEMP 98.3; O2SAT 98
== END 2019-08-07 16:58 | disposition home or self-care (01) ==
LOC: ER 15:12
DX: H00.14 Chalazion left upper eyelid (principal)
CPT/HCPCS: 99281

== ENCOUNTER 2019-10-11 18:39 | Emergency (ER) | payer SELFPAY ==
--- NOTE | 2019-10-11 21:16 | RAD REPORT ---
EXAM DESCRIPTION: RAD - Chest Single View - 10/11/2019 7:52 pm CLINICAL HISTORY: cough, shortness of breath COMPARISON: None TECHNIQUE: AP portable chest image was obtained 10/11/2019 7:52 pm . FINDINGS: Lungs are clear. Heart and vasculature are normal. No measurable pleural effusion and no p neumothorax. No acute bony abnormality seen. No acute aortic findings suspected. IMPRESSION: No acute cardiopulmonary process.
--- NOTE | 2019-10-11 21:47 | ER ---
Nurse's Notes [facility] Name: Dominguez Easton Age: 24 yrs Sex: Male : 1995 Arrival Date: 10/11/2019 Time: 18:41 Bed 15 Private MD: Diagnosis: Viral Respiratory Infection Presentation: 10/10 18:43 Chief complaint: Patient states: Cough x 2-3 days. SOB yesterday. Chest pain today. ca1 Coronavirus screen: Surgical mask placed on patient. Patient moved to private room, placed in contact and droplet isolation with eye protection until further assessment. Patient reports a cough. Patient reports shortness of breath or difficulty breathing. Patient denies measured and/or subjective temperature greater than 100.4F prior to today's visit. Patient denies travel on a cruise ship or to a country the [facility] [place] currently [place] as an affected area. Patient denies contact with known and/or suspected case of COVID-19. Ebola Screen: Patient negative for fever greater than or equal to 101.5 degrees Fahrenheit, and additional compatible Ebola Virus Disease symptoms Patient denies exposure to infectious person. Patient denies travel to an Ebola-affected area in the 21 days before illness onset. No symptoms or risks identified at this time. Initial Sepsis Screen: Does the patient meet any 2 criteria? No. Patient's initial sepsis screen is negative. Does the patient have a suspected source of infection? No. Patient's initial sepsis screen is negative. Risk Assessment: Do you want to hurt yourself or someone else? Patient reports no desire to harm self or others. Onset of symptoms was October 11, 2019. 18:43 Method Of Arrival: Ambulatory ca1 18:43 Acuity: SACHI 3 ca1 Triage Assessment: 18:49 General: Appears in no apparent distress. comfortable, Behavior is calm, cooperative. ls4 Historical: - Allergies: 18:46 No Known Allergies; ca1 - Home Meds: 18:46 None [Active]; ca1 - PMHx: 18:46 ADD/ADHD; Bipolar disorder; Migraines; ca1 - PSHx: 18:46 None; ca1 - Immunization history:: Adult Immunizations up to date. - Social history:: Smoking status: Patient denies any tobacco usage or history of. Screenin:48 Abuse screen: Denies threats or abuse. Denies injuries from another. Nutritional ls4 screening: No deficits noted. Tuberculosis screening: No symptoms or risk factors identified. Fall Risk None identified. Assessment: 18:48 General: Appears in no apparent distress. comfortable, Behavior is calm, cooperative. ls4 Pain: Pain radiates to chest Pain currently is 6 out of 10 on a pain scale. Quality of pain is described as aching, Pain began gradually, Is intermittent, Alleviated by Noted to be. Cardiovascular: Reports chest pain, Denies diaphoresis, fatigue, lightheadedness, nausea, palpitations, syncope, vomiting, Capillary refill < 3 seconds Clubbing of nail beds is absent Patient's skin is warm and dry. Rhythm is regular. Respiratory: Airway is patent Breath sounds are clear bilaterally. the patient has mild shortness of breath. GI: No deficits noted. No signs and/or symptoms were reported involving the gastrointestinal system. : No deficits noted. No signs and/or symptoms were reported regarding the genitourinary system. Derm: No deficits noted. No signs and/or symptoms reported regarding the dermatologic system. 20:13 Reassessment:. ls4 20:16 Reassessment: Patient appears in no apparent distress at this time. Patient and/or ls4 family updated on plan of care and expected duration. Pain level reassessed. Patient is alert, oriented x 3, equal unlabored respirations, skin warm/dry/pink. Vital Signs: 18:43 BP 129 / 70; Pulse 70; Resp 15 S; Temp 98(TE); Pulse Ox 100% on R/A; Weight 68.04 kg ca1 (R); Height 6 ft. 2 in. (187.96 cm) (R); 22:23 BP 122 / 74; Pulse 69; Resp 16; Temp 98.6(O); Pulse Ox 98% on R/A; Pain 3/10; ls4 18:43 Body Mass Index 19.26 (68.04 kg, 187.96 cm) ca1 ED Course: 18:41 Patient arrived in ED. ag5 18:45 Triage completed. ca1 18:46 Arm band placed on right wrist. ca1 18:47 Phoebe Nance, RN is Primary Nurse. ls4 18:48 Patient has correct armband on for positive identification. Bed in low position. Call ls4 light in reach. Side rails up X 1. environmental monitoring technician on. Pulse ox on. NIBP on. Warm blanket given. Verbal reassurance given. 18:49 No apparent distress. ls4 18:49 No provider procedures requiring assistance completed. Patient maintains SpO2 ls4 saturation greater than 95% on room air. 18:52 [facility] 18:52 Praneeth Toribio MD is Attending Physician. m 19:52 Chest Single View XRAY In Process Unspecified. EDMS 22:24 Patient did not have IV access during this emergency room visit. ls4 Administered Medications: No medications were administered Outcome: 21:46 Discharge ordered by MD. jmm 22:24 Discharged to home ambulatory. ls4 22:24 Condition: good 22:24 Discharge instructions given to patient, Instructed on discharge instructions, follow up and referral plans. safety practices, Demonstrated understanding of instructions, follow-up care, medications. 22:25 Patient left the ED. ls4 Addendum: 10/15/2019 10:29 Addendum: COVID-19 Result: Positive result giiven to ED physician to notify pt. i w Physician: Praneeth Toribio MD Physician was able to contact pt and pt was notified of positive COVID-19 swab result. Physician answered pt questions. Signatures: Dispatcher [employer] EDMS Enzo Thompson PA PA Areli Irving RN RN iw Stewart, Lisa RN RN ls4 Tamiko Anrdews RN RN Milagros Luis 5
--- NOTE | 2019-10-11 21:47 | EDPHYS ---
Physician Documentation [facility] Name: Dominguez Easton Age: 24 yrs Sex: Male : 1995 Arrival Date: 10/11/2019 Time: 18:41 Bed 15 Private MD: ED Physician Praeneth Toribio HPI: 10/10 19:05 This 24 yrs old Male presents to ER via Ambulatory with complaints of Chest jmm Pain, Shortness Of Breath, Back Pain. 19:05 The patient or guardian reports cough. Onset: The symptoms/episode began/occurred jmm gradually, 3 day(s) ago. Modifying factors: The symptoms are alleviated by nothing. the symptoms are aggravated by nothing. Associated signs and symptoms: Pertinent positives: chest pain, with movement, with breathing, sore throat. . Historical: - Allergies: 18:46 No Known Allergies; ca1 - Home Meds: 18:46 None [Active]; ca1 - PMHx: 18:46 ADD/ADHD; Bipolar disorder; Migraines; ca1 - PSHx: 18:46 None; ca1 - Immunization history:: Adult Immunizations up to date. - Social history:: Smoking status: Patient denies any tobacco usage or history of. ROS: 19:05 Constitutional: Positive for body aches, chills, fatigue. jmm 19:05 ENT: Positive for sore throat. 19:05 Cardiovascular: Positive for chest pain, with cough, with movement. 19:05 Respiratory: Positive for cough, shortness of breath. 19:05 All other systems are negative. Exam: 19:05 Constitutional: This is a well developed, well nourished patient who is awake, alert, jmm and in no acute distress. Head/Face: atraumatic. Eyes: EOMI, no conjunctival erythema appreciated 19:05 Chest/axilla: Normal chest wall appearance and motion. Cardiovascular: Regular rate and rhythm. No edema appreciated Respiratory: Normal respirations, no respiratory distress appreciated Abdomen/GI: Non distended, soft Back: Normal ROM Skin: General appearance color normal MS/ Extremity: Moves all extremities, no obvious deformities appreciated, no edema noted to the lower extremities Neuro: Awake and alert, normal gait Psych: Behavior is normal, Mood is normal, Patient is cooperative and pleasant 19:05 ENT: Posterior pharynx: erythema, that is moderate. Vital Signs: 18:43 BP 129 / 70; Pulse 70; Resp 15 S; Temp 98(TE); Pulse Ox 100% on R/A; Weight 68.04 kg ca1 (R); Height 6 ft. 2 in. (187.96 cm) (R); 22:23 BP 122 / 74; Pulse 69; Resp 16; Temp 98.6(O); Pulse Ox 98% on R/A; Pain 3/10; ls4 18:43 Body Mass Index 19.26 (68.04 kg, 187.96 cm) ca1 MDM: 19:05 Patient medically screened. [facility] 21:45 Data reviewed: vital signs, nurses notes. Counseling: I had a detailed discussion with [facility] the patient and/or guardian regarding: the historical points, exam findings, and any diagnostic results supporting the discharge/admit diagnosis, lab results, radiology results, the need for outpatient follow up, to return to the emergency department if symptoms worsen or persist or if there are any questions or concerns that arise at home. ED course: Patient is alert and non toxic in appearance. Patient is advised to self quarantine and given strict return precautions. Patient understood and agrees with the plan of care. . 10/10 19:21 Order name: Strep; Complete Time: 20:44 [facility] 10/10 19:21 Order name: COVID-19; Complete Time: 08:38 [facility] 10/10 19:21 Order name: Chest Single View XRAY; Complete Time: 21:31 [facility] 10/10 20:40 Order name: Throat Culture; Complete Time: 08:38 [facility] 10/10 20:45 Order name: EKG - Nurse/Tech; Complete Time: 21:45 [facility] Administered Medications: No medications were administered Disposition: 10/11 07:33 Co-signature as Attending Physician, Praneeth Toribio MD. rn Disposition: 10/11/19 21:46 Discharged to Home. Impression: Viral Respiratory Infection. - Condition is Stable. - Discharge Instructions: COVID-19. - Medication Reconciliation Form, Thank You Letter, Antibiotic Education, Prescription Opioid Use, Work release form form. - Follow up: Private Physician; When: 2 - 3 days; Reason: Recheck today's complaints, Continuance of care, Re-evaluation by your physician. Addendum: 10/15/2019 08:41 Addendum: Called patient and contacted \T\ [phone] to notify of COVID-19 positive results. rn Feels better, questions answered, and told health department would contact for further recommendations. . Signatures: Dispatcher [employer] Enzo Armstrong PA PA jmm Nieto, Roman, MD MD rn Stewart, Lisa, RN RN ls4 Juliana, ZIA Morrison RN ca1 Corrections: (The following items were deleted from the chart) 10/10 22:25 21:46 10/11/2019 21:46 Discharged to Home. Impression: Viral Respiratory Infection. ls4 Condition is Stable. Forms are Medication Reconciliation Form, Thank You Letter, Antibiotic Education, Prescription Opioid Use. Follow up: Private Physician; When: 2 - 3 days; Reason: Recheck today's complaints, Continuance of care, Re-evaluation by your physician. kimmie
[2019-10-11 22:46] VITALS: BP 122/74; TEMP 98.6; O2SAT 98
== END 2019-10-11 22:25 | disposition home or self-care (01) ==
LOC: ER 18:39
DX: U07.1 COVID-19 (principal); J98.8 Other specified respiratory disorders
CPT/HCPCS: 71045; 87070; 87081; 99284; U0001

== ENCOUNTER 2019-10-23 20:58 | Emergency (ER) | payer SELFPAY ==
[2019-10-23] MEDS ORDERED: NA CHLORIDE 0.9% 0 ML ONE (21:40)
--- NOTE | 2019-10-23 21:54 | EDPHYS ---
Physician Documentation [facility] Name: Dominguez Easton Age: 24 yrs Sex: Male : 1995 Arrival Date: 10/23/2019 Time: 20:59 Bed 7 Private MD: ED Physician Rosales Hopper HPI: 10/22 21:29 This 24 yrs old Male presents to ER via Ambulatory with complaints of mh7 Weakness. 21:29 The patient presents to the emergency department with weakness of the entire body, mh7 generalized weakness, that is moderate. Onset: The symptoms/episode began/occurred today. 21:30 Onset: The symptoms/episode began/occurred 1.5 hour(s) ago. Context: occurred on a 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 Associated signs and symptoms: Pertinent positives: dizziness, weakness, body aches, Pertinent negatives: altered mental status, chills, fever, headache, nausea, neck stiffness, paresthesias, seizure, syncope, near-syncope, blurred vision, double vision, visual field changes, loss of vision. Severity of symptoms: At their worst the symptoms were moderate today, in the emergency department the symptoms have improved moderately. 21:32 Patient states that he started having generalized weakness/fatigue and dizziness while mh7 outside mowing grass this evening. He states that he tested positive for COVID 19 2 weeks ago. He denies any headache, chest pain, abdominal pain, fever, cough, SOB, nausea, vomiting, numbness/tingling, or focal weakness. Denies any sick contacts or recent travel.. Historical: - Allergies: 21:19 No Known Allergies; rr5 - Home Meds: 21:19 None [Active]; rr5 - PMHx: 21:19 ADD/ADHD; Bipolar disorder; Migraines; covid 19; rr5 - PSHx: 21:19 head surgery; jaw surgery; rr5 - Immunization history:: Adult Immunizations unknown. - Social history:: Smoking status: unknown Patient/guardian denies using alcohol, street drugs, tobacco products. ROS: 21:32 Constitutional: Negative for fever, chills, and weight loss, Eyes: Negative for injury, mh7 pain, redness, and discharge, ENT: Negative for injury, pain, and discharge, Neck: Negative for injury, pain, and swelling, Cardiovascular: Negative for chest pain, palpitations, and edema, Respiratory: Negative for shortness of breath, cough, wheezing, and pleuritic chest pain, Abdomen/GI: Negative for abdominal pain, nausea, vomiting, diarrhea, and constipation, Back: Negative for injury and pain, : Negative for injury, bleeding, discharge, and swelling, MS/Extremity: Negative for injury and deformity, Skin: Negative for injury, rash, and discoloration, Psych: Negative for depression, anxiety, suicide ideation, homicidal ideation, and hallucinations, Allergy/Immunology: Negative for hives, rash, and allergies, Endocrine: Negative for neck swelling, polydipsia, polyuria, polyphagia, and marked weight changes, Hematologic/Lymphatic: Negative for swollen nodes, abnormal bleeding, and unusual bruising. Exam: 21:32 Constitutional: This is a well developed, well nourished patient who is awake, alert, mh7 and in no acute distress. Head/Face: Normocephalic, atraumatic. Eyes: Pupils equal round and reactive to light, extra-ocular motions intact. Lids and lashes normal. Conjunctiva and sclera are non-icteric and not injected. Cornea within normal limits. Periorbital areas with no swelling, redness, or edema. Neck: Trachea midline, no thyromegaly or masses palpated, and no cervical lymphadenopathy. Supple, full range of motion without nuchal rigidity, or vertebral point tenderness. No Meningismus. Chest/axilla: Normal chest wall appearance and motion. Nontender with no deformity. No lesions are appreciated. Cardiovascular: Regular rate and rhythm with a normal S1 and S2. No gallops, murmurs, or rubs. Normal PMI, no JVD. No pulse deficits. Respiratory: Lungs have equal breath sounds bilaterally, clear to auscultation and percussion. No rales, rhonchi or wheezes noted. No increased work of breathing, no retractions or nasal flaring. Abdomen/GI: Soft, non-tender, with normal bowel sounds. No distension or tympany. No guarding or rebound. No evidence of tenderness throughout. Back: No spinal tenderness. No costovertebral tenderness. Full range of motion. Skin: Warm, dry with normal turgor. Normal color with no rashes, no lesions, and no evidence of cellulitis. MS/ Extremity: Pulses equal, no cyanosis. Neurovascular intact. Full, normal range of motion. Neuro: Awake and alert, GCS 15, oriented to person, place, time, and situation. Cranial nerves II-XII grossly intact. Motor strength 5/5 in all extremities. Sensory grossly intact. Cerebellar exam normal. Normal gait. Psych: Awake, alert, with orientation to person, place and time. Behavior, mood, and affect are within normal limits. Vital Signs: 21:10 BP 133 / 87; Pulse 99; Resp 18; Temp 98.3; Pulse Ox 100% ; Weight 59.87 kg; Height 6 rr5 ft. 2 in. (187.96 cm); Pain 2/10; 21:10 Body Mass Index 16.95 (59.87 kg, 187.96 cm) rr5 MDM: 21:[address] [facility] 21:50 Data reviewed: vital signs, nurses notes, old medical records. Data interpreted: Pulse [facility] oximetry: on room air is 100 %. Interpretation: normal. Refusal of service: The patient/guardian displays adequate decision making capability and despite a detailed discussion of alternatives, benefits, risks, and consequences refuses: CT Scan, all lab tests, Medications. ED course: Informed by nursing staff that patient refused all tests and left against medical advice. He would not wait to speak with physician prior to leaving.. 10/22 21:26 Order name: EKG; Complete Time: 21:27 [facility] 10/22 21:26 Order name: Cardiac monitoring [facility] 10/22 21:26 Order name: EKG - Nurse/Tech [facility] 10/22 21:26 Order name: IV Saline Lock [facility] 10/22 21:26 Order name: Labs collected and sent [facility] 10/22 21:26 Order name: NPO [facility] 10/22 21:26 Order name: O2 Per Protocol [facility] 10/22 21:26 Order name: O2 Sat Monitoring [facility] Administered Medications: 22:11 Not Given (Patient Refused): NS 0.9% 1000 ml IV at 1000 ml once jb4 Disposition: 10/23/19 21:52 Patient has left against medical advice. Impression: Generalized Weakness. - Patients states they are going to Home. - Condition is Stable. - Discharge Instructions: Weakness, [id number]. Follow up: Private Physician; When: 1 - 2 days; Reason: Worsening of condition, Recheck today's complaints, Re-evaluation by your physician. - Problem is new. - Symptoms are unchanged. Signatures: Dispatcher [employer] EDNV Sushil Milton RN RN jb4 Jacek Gregg RN RN rr5 Rosales Hopper MD MD mh7 Corrections: (The following items were deleted from the chart) 21:52 21:27 Chest Single View+RAD.RAD.BRZ ordered. EDNV EDMS 21:53 21:27 Head Brain Wo Cont+CT.RAD.BRZ ordered. EDNV EDMS 22:15 21:52 10/23/2019 21:52 Patients has left against medical advice. Impression: jb4 Generalized Weakness. Patient states they are going to Home. Condition is Stable. Follow up: Private Physician; When: 1 - 2 days; Reason: Worsening of condition, Recheck today's complaints, Re-evaluation by your physician. Problem is new. Symptoms are unchanged. mh7
--- NOTE | 2019-10-23 21:54 | ER ---
Nurse's Notes [facility] Name: Dominguez Easton Age: 24 yrs Sex: Male : 1995 Arrival Date: 10/23/2019 Time: 20:59 Bed 7 Private MD: Diagnosis: Generalized Weakness Presentation: 10/22 21:10 Chief complaint: Patient states: sudden weakness and fatigue started 1 1/2 hour ago, rr5 feels hot and feeling I want to pass out. been tested for covid positive 2 1/2 weeks ago and today I went to my doctor, cleared me from Covid. 21:10 Coronavirus screen: Prior COVID test collected on: 2 1/12 weeks ago cleared by his PCP rr5 today no swabbing was done. Ebola Screen: Patient negative for fever greater than or equal to 101.5 degrees Fahrenheit, and additional compatible Ebola Virus Disease symptoms Patient denies exposure to infectious person. Patient denies travel to an Ebola-affected area in the 21 days before illness onset. Initial Sepsis Screen: Does the patient meet any 2 criteria? No. Patient's initial sepsis screen is negative. Does the patient have a suspected source of infection? No. Patient's initial sepsis screen is negative. Risk Assessment: Do you want to hurt yourself or someone else? Patient reports no desire to harm self or others. Onset of symptoms was October 23, 2019. 21:10 Method Of Arrival: Ambulatory rr5 21:10 Acuity: SACHI 3 rr5 Historical: - Allergies: 21:19 No Known Allergies; rr5 - Home Meds: 21:19 None [Active]; rr5 - PMHx: 21:19 ADD/ADHD; Bipolar disorder; Migraines; covid 19; rr5 - PSHx: 21:19 head surgery; jaw surgery; rr5 - Immunization history:: Adult Immunizations unknown. - Social history:: Smoking status: unknown Patient/guardian denies using alcohol, street drugs, tobacco products. Screenin:19 Abuse screen: Denies threats or abuse. Denies injuries from another. Nutritional rr5 screening: No deficits noted. Tuberculosis screening: No symptoms or risk factors identified. Fall Risk None identified. Total Fajardo Fall Scale indicates No Risk (0-24 pts). 21:19 VAN Screening: Arm Drift: Patient shows no arm weakness. Patient is VAN negative. rr5 Assessment: 21:20 VAN Scoring: Arm Drift: Patients demonstrates NO arm weakness. Patient is VAN Negative. rr5 General: Appears in no apparent distress. uncomfortable, Behavior is calm, cooperative, appropriate for age, Reports fatigue for. Pain: Complains of pain in head and arm Pain does not radiate. Pain currently is 2 out of 10 on a pain scale. Quality of pain is described as aching, Pain began gradually, Is intermittent. Neuro: Level of Consciousness is awake, alert, obeys commands, Oriented to person, place, time, situation, Reports weakness. Cardiovascular: Capillary refill < 3 seconds Patient's skin is warm and dry. Respiratory: Airway is patent Respiratory effort is even, unlabored, Respiratory pattern is regular, symmetrical. GI: No signs and/or symptoms were reported involving the gastrointestinal system. Patient currently denies nausea, vomiting. : No signs and/or symptoms were reported regarding the genitourinary system. EENT: No signs and/or symptoms were reported regarding the EENT system. Derm: Skin is intact, is healthy with good turgor, Skin temperature is warm. Musculoskeletal: Circulation, motion, and sensation intact. Capillary refill < 3 seconds. 21:45 Reassessment: Pt verbalized wanting to go AMA. Pt states " I think it is just anxiety. jb4 I know I am having a lot of anxiety due to everything going on lately and I just really hate needles and do not think I can handle doing the test and stuff right now." Explained to pt that the reason for symptoms are unknown and that symptoms could worsen in severity up to . Pt verbalized understanding of possible worsening and states " I am fine, if things get worse I will come back.". Ambulated out of ED with steady gait. Vital Signs: 21:10 BP 133 / 87; Pulse 99; Resp 18; Temp 98.3; Pulse Ox 100% ; Weight 59.87 kg; Height 6 rr5 ft. 2 in. (187.96 cm); Pain 2/10; 21:10 Body Mass Index 16.95 (59.87 kg, 187.96 cm) rr5 ED Course: 20:59 Patient arrived in ED. cl3 21:01 Rosales Hopper MD is Attending Physician. mh7 21:11 Gregg, Jacek, RN is Primary Nurse. rr5 21:18 Triage completed. rr5 21:19 Arm band placed on right wrist. rr5 21:22 Patient has correct armband on for positive identification. Bed in low position. Call rr5 light in reach. 21:45 No provider procedures requiring assistance completed. Patient did not have IV access rr5 during this emergency room visit. Administered Medications: 22:11 Not Given (Patient Refused): NS 0.9% 1000 ml IV at 1000 ml once jb4 Outcome: 21:45 AMA AMA form signed jb4 21:45 Condition: unchanged jb4 21:45 Discharge instructions given to patient, Instructed on follow up and referral plans. Demonstrated understanding of instructions. 22:15 Patient left the ED. jb4 Signatures: Sushil Milton RN RN jb4 Jacek Gregg RN RN rr5 Eric Gonzalez cl3 Rosales Hopper MD MD 7
[2019-10-23 22:20] VITALS: BP 133/87; TEMP 98.3; O2SAT 100
== END 2019-10-23 22:15 | disposition left against medical advice (07) ==
LOC: ER 20:58
DX: R53.1 Weakness (principal)
CPT/HCPCS: 99281; J7030

== ENCOUNTER 2019-11-04 02:05 | Emergency (ER) | payer SELFPAY ==
--- NOTE | 2019-11-04 03:02 | ER ---
Nurse's Notes [facility] Name: Dominguez Easton Age: 24 yrs Sex: Male : 1995 Arrival Date: 11/04/2019 Time: 02:06 Bed 8 Private MD: Diagnosis: Encounter for screening for other viral diseases Presentation: 11/03 02:14 Coronavirus screen: Client denies travel out of the [place] in the last 14 days. feels sg hot, unsure if feverish Client presents with at least one sign or symptom that may indicate coronavirus-19. Standard/surgical mask placed on the client. Provider contacted for isolation considerations. At this time, unable to obtain information related to previous covid testing. Client reports previous positive COVID test result. Ebola Screen: Patient negative for fever greater than or equal to 101.5 degrees Fahrenheit, and additional compatible Ebola Virus Disease symptoms Patient denies exposure to infectious person. Patient denies travel to an Ebola-affected area in the 21 days before illness onset. No symptoms or risks identified at this time. Initial Sepsis Screen: Does the patient meet any 2 criteria? No. Patient's initial sepsis screen is negative. Does the patient have a suspected source of infection? No. Patient's initial sepsis screen is negative. Risk Assessment: Do you want to hurt yourself or someone else? Patient reports no desire to harm self or others. Onset of symptoms was November 04, 2019. Care prior to arrival: None. Transition of care: patient was not received from another setting of care. 02:14 Acuity: SACHI 4 sg 02:14 Chief complaint: Patient states: I feel really dizzy, and also feeling very hot, like I sg might pass out. I had been tested positive for COVID back in September, was seen by my doctor and told I was clear of Covid but I think maybe Im having symptoms again. Im not sure. 02:14 Method Of Arrival: Ambulatory sg Historical: - Allergies: 02:14 No Known Allergies; sg - PMHx: 02:14 ADD/ADHD; Bipolar disorder; covid 19; Migraines; sg - PSHx: 02:14 head surgery; jaw surgery; sg - Immunization history:: Adult Immunizations up to date. - Social history:: Smoking status: Patient denies any tobacco usage or history of. Screenin:43 Abuse screen: Denies threats or abuse. Denies injuries from another. Nutritional mg2 screening: No deficits noted. Tuberculosis screening: No symptoms or risk factors identified. Fall Risk None identified. Assessment: 02:42 General: Appears in no apparent distress. comfortable, Behavior is calm, cooperative. mg2 Pain: Complains of pain in chest. Neuro: Level of Consciousness is awake, alert, obeys commands, Oriented to person, place, time, situation. Neuro: Reports dizziness, since today. Cardiovascular: Capillary refill < 3 seconds. Respiratory: Airway is patent Respiratory effort is even, unlabored, Respiratory pattern is regular, symmetrical. GI: No signs and/or symptoms were reported involving the gastrointestinal system. : No signs and/or symptoms were reported regarding the genitourinary system. EENT: Reports sore throat. Derm: Skin is intact, is healthy with good turgor, Skin is pink, warm \T\ dry. normal. Musculoskeletal: Circulation, motion, and sensation intact. Capillary refill < 3 seconds. Vital Signs: 02:25 BP 153 / 105; Pulse 77; Resp 18; Temp 98.6; Pulse Ox 100% on R/A; mg2 ED Course: 02:06 Patient arrived in ED. ag3 02:11 Kunal Hyde PA is PHCP. jr8 02:11 Praneeth Toribio MD is Attending Physician. jr8 02:11 Ned Yanes, ZIA is Primary Nurse. mg2 02:14 Arm band placed on. sg 02:16 Triage completed. sg 02:43 Patient has correct armband on for positive identification. mg2 02:43 No provider procedures requiring assistance completed. Strep swab sent to lab. covid mg2 swab sent to lab. Patient did not have IV access during this emergency room visit. 02:43 EKG done, by ED staff, reviewed by Kunal SWANSON. mg2 03:10 XRAY Chest (1 view) In Process Unspecified. EDMS 03:42 Primary Nurse role handed off by Ned Yanes, RN sg Administered Medications: No medications were administered Outcome: 03:02 Discharge ordered by . jr8 03:39 Patient left the ED. sg 03:39 Discharged to home ambulatory. mg2 03:39 Condition: stable 03:39 Discharge instructions given to patient, Instructed on discharge instructions, follow mg2 up and referral plans. Demonstrated understanding of instructions, follow-up care. 03:43 Patient left the ED. sg Addendum: 11/06/2019 09:37 Addendum: COVID-19 Result: Positive result giiven to ED physician to notify pt. h b Physician: Rick Alonzo MD. Signatures: Dispatcher [employer] EDMS Jarocho Saunders RN RN Kunal Hyde PA PA jr8 Citlali Pedroza RN RN Ned Yanes RN RN [facility] Purvi Prakash 3
--- NOTE | 2019-11-04 03:02 | EDPHYS ---
Physician Documentation [facility] Name: Dominguez Easton Age: 24 yrs Sex: Male : 1995 Arrival Date: 11/04/2019 Time: 02:06 Bed 8 Private MD: ED Physician Praneeth Toribio HPI: 11/03 02:24 This 24 yrs old Male presents to ER via Ambulatory with complaints of FEELS jr8 HOT, Dizziness. 02:24 Patient stated that he was diagnosed with COVID about a month ago and has since been jr8 recovered and back to normal. Had retested a couple of weeks ago and tested negative. Stated that he went to D\T\B with friends about 4 days ago. Since then started to have chills, sweats, sore throat, cough, chest tightness, fatigue, and shortness of breath. Worried that he may have it again . Severity of symptoms: At their worst the symptoms were mild in the emergency department the symptoms are unchanged. The patient has experienced a previous episode. The patient has not recently seen a physician. Historical: - Allergies: 02:14 No Known Allergies; sg - PMHx: 02:14 ADD/ADHD; Bipolar disorder; covid 19; Migraines; sg - PSHx: 02:14 head surgery; jaw surgery; sg - Immunization history:: Adult Immunizations up to date. - Social history:: Smoking status: Patient denies any tobacco usage or history of. ROS: 02:24 Eyes: Negative for injury, pain, redness, and discharge. jr8 02:24 Neck: Negative for injury, pain, and swelling. 02:24 Cardiovascular: Negative for chest pain, palpitations, and edema, Abdomen/GI: Negative for abdominal pain, nausea, vomiting, diarrhea, and constipation, Back: Negative for injury and pain, MS/Extremity: Negative for injury and deformity, Skin: Negative for injury, rash, and discoloration. 02:24 Constitutional: Positive for body aches, chills, fatigue, malaise. 02:24 ENT: Positive for sinus congestion, sore throat. 02:24 Respiratory: Positive for dyspnea on exertion, shortness of breath. 02:24 Neuro: Positive for dizziness, headache. Exam: 02:24 Eyes: Pupils equal round and reactive to light, extra-ocular motions intact. Lids and jr8 lashes normal. Conjunctiva and sclera are non-icteric and not injected. Cornea within normal limits. Periorbital areas with no swelling, redness, or edema. ENT: Nares patent. No nasal discharge, no septal abnormalities noted. Tympanic membranes are normal and external auditory canals are clear. Oropharynx with no redness, swelling, or masses, exudates, or evidence of obstruction, uvula midline. Mucous membranes moist. Neck: Trachea midline, no thyromegaly or masses palpated, and no cervical lymphadenopathy. Supple, full range of motion without nuchal rigidity, or vertebral point tenderness. No Meningismus. Cardiovascular: Regular rate and rhythm with a normal S1 and S2. No gallops, murmurs, or rubs. Normal PMI, no JVD. No pulse deficits. Respiratory: Lungs have equal breath sounds bilaterally, clear to auscultation and percussion. No rales, rhonchi or wheezes noted. No increased work of breathing, no retractions or nasal flaring. Abdomen/GI: Soft, non-tender, with normal bowel sounds. No distension or tympany. No guarding or rebound. No evidence of tenderness throughout. Back: No spinal tenderness. No costovertebral tenderness. Full range of motion. Skin: Warm, dry with normal turgor. Normal color with no rashes, no lesions, and no evidence of cellulitis. MS/ Extremity: Pulses equal, no cyanosis. Neurovascular intact. Full, normal range of motion. Neuro: Awake and alert, GCS 15, oriented to person, place, time, and situation. Cranial nerves II-XII grossly intact. Motor strength 5/5 in all extremities. Sensory grossly intact. Cerebellar exam normal. Normal gait. Vital Signs: 02:25 BP 153 / 105; Pulse 77; Resp 18; Temp 98.6; Pulse Ox 100% on R/A; mg2 MDM: 02:11 Patient medically screened. jr8 03:01 Data reviewed: vital signs, nurses notes, lab test result(s), radiologic studies, plain jr8 films. Data interpreted: Pulse oximetry: on room air is 100 %. Interpretation: normal. Counseling: I had a detailed discussion with the patient and/or guardian regarding: the historical points, exam findings, and any diagnostic results supporting the discharge/admit diagnosis, lab results, radiology results, the need for outpatient follow up, a family practitioner, to return to the emergency department if symptoms worsen or persist or if there are any questions or concerns that arise at home. 11/03 02:24 Order name: Strep jr8 11/03 02:24 Order name: COVID-19 jr8 11/03 02:24 Order name: XRAY Chest (1 view) jr8 11/03 02:24 Order name: EKG - Nurse/Tech; Complete Time: 02:25 jr8 Administered Medications: No medications were administered Disposition: 04:55 Co-signature as Attending Physician, Praneeth Toribio MD. rn Disposition: 11/04/19 03:02 Discharged to Home. Impression: Encounter for screening for other viral diseases. - Condition is Stable. - Discharge Instructions: COVID-19. - Work release form, Medication Reconciliation Form, Thank You Letter, Antibiotic Education, Prescription Opioid Use form. - Follow up: Private Physician; When: 5 - 6 days; Reason: Recheck today's complaints, Continuance of care, Re-evaluation by your physician. - Problem is new. - Symptoms have improved. Signatures: Dispatcher [employer] EDMS Jarocho Saunders RN RN sg Nieto, Roman, MD MD rn Roszak, Josh, PA PA jr8 Corrections: (The following items were deleted from the chart) 02:27 02:24 Patient stated that he was diagnosed with COVID about a month ago and has since jr8 been recovered and back to normal. Stated that he went to D\T\B with friends about 4 days ago. Since then started to have chills, sweats, sore throat, cough, chest tightness, fatigue, and shortness of breath. Worried that he may have it again . jr8 03:39 03:02 11/04/2019 03:02 Discharged to Home. Impression: Encounter for screening for sg other viral diseases. Condition is Stable. Forms are Medication Reconciliation Form, Thank You Letter, Antibiotic Education, Prescription Opioid Use. Follow up: Private Physician; When: 5 - 6 days; Reason: Recheck today's complaints, Continuance of care, Re-evaluation by your physician. Problem is new. Symptoms have improved. jr8 03:43 03:39 11/04/2019 03:02 Discharged to Home. Impression: Encounter for screening for sg other viral diseases. Condition is Stable. Discharge Instructions: COVID-19. Forms are Medication Reconciliation Form, Thank You Letter, Antibiotic Education, Prescription Opioid Use, Work release form. Follow up: Private Physician; When: 5 - 6 days; Reason: Recheck today's complaints, Continuance of care, Re-evaluation by your physician. Problem is new. Symptoms have improved. sg
[2019-11-04 03:47] VITALS: BP 153/105; TEMP 98.6; O2SAT 100
--- NOTE | 2019-11-04 08:29 | RAD REPORT ---
EXAM DESCRIPTION: RAD - Chest Single View - 11/04/2019 3:10 am CLINICAL HISTORY: DYSPNEA Chest pain. COMPARISON: Chest Single View dated 10/11/2019 FINDINGS: Portable technique limits examination quality. The lungs are grossly clear. The heart is normal in size. No displaced fractures. IMPRESSION: No acute intrathoracic process suspected.
--- NOTE | 2019-11-04 11:01 | EKG ---
Test Date: 2019-11-04 Test Time: 02:33:58 [place]: MEASUREMENT RESULTS: Intervals: Rate: 77 GA: 134 QRSD: 94 QT: 350 QTc: 396 [place]: P: 81 GA: 134 QRS: 83 T: 41 INTERPRETIVE STATEMENTS: Normal sinus rhythm with sinus arrhythmia Incomplete right bundle branch block Borderline ECG Compared to ECG 08/18/2016 11:38:00 Incomplete right bundle-branch block now present Sinus bradycardia no longer present Electronically Signed On 11-04-19 11:00:53 CDT by Reese Partida
== END 2019-11-04 03:43 | disposition home or self-care (01) ==
LOC: ER 02:05
DX: U07.1 COVID-19 (principal); Z11.59 Encounter for screening for other viral diseases
CPT/HCPCS: 71045; 87070; 87081; 93005; 99283; U0002

== ENCOUNTER 2020-07-15 18:35 | Emergency (ER) | payer OTHER, SELFPAY ==
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
[2020-07-15 22:54] VITALS: TEMP 98.4
[2020-07-15 22:58] VITALS: BP 111/70; O2SAT 100
== END 2020-07-15 22:32 | disposition home or self-care (01) ==
LOC: ER 18:35
DX: S16.1XXA Strain of muscle, fascia and tendon at neck level, initial encounter (principal); S29.011A Strain of muscle and tendon of front wall of thorax, initial encounter; V49.40XA Driver injured in collision with unspecified motor vehicles in traffic accident, initial encounter; Z86.16 Personal history of COVID-19
CPT/HCPCS: 70450; 71250; 72125; 99283

== ENCOUNTER 2020-10-24 23:15 | Emergency (ER) | payer SELFPAY ==
--- NOTE | 2020-10-26 17:03 | EDPHYS ---
Physician Documentation [facility] Name: Dominguez Easton Age: 25 yrs Sex: Male : 1995 Arrival Date: 10/24/2020 Time: 23:20 Bed 5 Private MD: ED Physician Rosales Hopper HPI: 10/25 00:35 This 25 yrs old Male presents to ER via Ambulatory with complaints of mh7 Dizziness, Chest Congestion, Arm Pain, Sore Throat. 00:35 The patient presents with sore throat. mh7 00:35 The patient describes throat pain as dry, intermittent. Onset: The symptoms/episode mh7 began/occurred 2 day(s) ago. Severity of symptoms: At their worst the symptoms were mild, yesterday, in the emergency department the symptoms have improved, markedly. Modifying factors: The symptoms are alleviated by nothing, Did not take any medication the symptoms are aggravated by nothing. Associated signs and symptoms: Pertinent positives: rhinorrhea, Sore throat Sinus congestion, Pertinent negatives chest pain, chills, cough, diarrhea, dysphagia, earache, fever, flu-like symptoms, headache, nausea, shortness of breath, vomiting. 01:04 Patient reports having intermittent episodes of dizziness for the past 3 to 4 months mh7 related to looking at small numbers or words due to his nearsightedness. He states that he does not wear contact lenses or glasses although he is supposed to. He has not had a vision exam in the last 3 years. He also complains of intermittent pain to the right upper forearm area for several months due to a retained small piece of glass from an old injury 3 to 4 years ago. He states he has not followed up with a doctor since the injury. He also has not tried taking any pain medication. He denies any headache, chest pain, fever, abdominal pain, nausea, vomiting, numbness/tingling, or weakness.. Historical: - Allergies: 10/24 23:57 No Known Allergies; lp1 - Home Meds: 23:57 None [Active]; lp1 - PMHx: 23:57 ADD/ADHD; Bipolar disorder; collar bone fx; covid 19; Migraines; Asperger's; lp1 - PSHx: 23:57 None; lp1 - Immunization history:: Adult Immunizations up to date. - Social history:: Smoking status: Patient denies any tobacco usage or history of. ROS: 10/25 00:35 Constitutional: Negative for fever, chills, and weight loss, Eyes: Negative for injury, mh7 pain, redness, and discharge, Neck: Negative for injury, pain, and swelling, Cardiovascular: Negative for chest pain, palpitations, and edema, Respiratory: Negative for shortness of breath, cough, wheezing, and pleuritic chest pain, Abdomen/GI: Negative for abdominal pain, nausea, vomiting, diarrhea, and constipation, Back: Negative for injury and pain, : Negative for injury, bleeding, discharge, and swelling, Skin: Negative for injury, rash, and discoloration, Neuro: Negative for headache, weakness, numbness, tingling, and seizure, Psych: Negative for depression, anxiety, suicide ideation, homicidal ideation, and hallucinations, Allergy/Immunology: Negative for hives, rash, and allergies, Endocrine: Negative for neck swelling, polydipsia, polyuria, polyphagia, and marked weight changes, Hematologic/Lymphatic: Negative for swollen nodes, abnormal bleeding, and unusual bruising. Exam: 00:35 Constitutional: This is a well developed, well nourished patient who is awake, alert, mh7 and in no acute distress. Head/Face: Normocephalic, atraumatic. Eyes: Pupils equal round and reactive to light, extra-ocular motions intact. Lids and lashes normal. Conjunctiva and sclera are non-icteric and not injected. Cornea within normal limits. Periorbital areas with no swelling, redness, or edema. ENT: Nares patent. No nasal discharge, no septal abnormalities noted. Tympanic membranes are normal and external auditory canals are clear. Oropharynx with no redness, swelling, or masses, exudates, or evidence of obstruction, uvula midline. Mucous membranes moist. Neck: Trachea midline, no thyromegaly or masses palpated, and no cervical lymphadenopathy. Supple, full range of motion without nuchal rigidity, or vertebral point tenderness. No Meningismus. Chest/axilla: Normal chest wall appearance and motion. Nontender with no deformity. No lesions are appreciated. Cardiovascular: Regular rate and rhythm with a normal S1 and S2. No gallops, murmurs, or rubs. Normal PMI, no JVD. No pulse deficits. Respiratory: Lungs have equal breath sounds bilaterally, clear to auscultation and percussion. No rales, rhonchi or wheezes noted. No increased work of breathing, no retractions or nasal flaring. Abdomen/GI: Soft, non-tender, with normal bowel sounds. No distension or tympany. No guarding or rebound. No evidence of tenderness throughout. Back: No spinal tenderness. No costovertebral tenderness. Full range of motion. Skin: Warm, dry with normal turgor. Normal color with no rashes, no lesions, and no evidence of cellulitis. MS/ Extremity: Pulses equal, no cyanosis. Neurovascular intact. Full, normal range of motion. Neuro: Awake and alert, GCS 15, oriented to person, place, time, and situation. Cranial nerves II-XII grossly intact. Motor strength 5/5 in all extremities. Sensory grossly intact. Cerebellar exam normal. Normal gait. Psych: Awake, alert, with orientation to person, place and time. Behavior, mood, and affect are within normal limits. Vital Signs: 10/24 23:59 BP 121 / 81; Pulse 73; Resp 18; Temp 98.8(O); Pulse Ox 99% on R/A; Weight 68.04 kg (R); lp1 Height 6 ft. 2 in. (187.96 cm); Pain 7/10; 10/25 02:50 BP 140 / 84; Pulse 92; Resp 16; Pulse Ox 100% on R/A; lp1 10/24 23:59 Body Mass Index 19.26 (68.04 kg, 187.96 cm) lp1 MDM: 02:38 Differential diagnosis: bronchitis, group A strep tonsillitis, pharyngitis, upper mh7 respiratory infection, viral syndrome musculoskeletal pain. Data reviewed: vital signs, nurses notes, lab test result(s), Flu: negative. Data interpreted: Pulse oximetry: on room air is 99 %. Interpretation: normal. Counseling: I had a detailed discussion with the patient and/or guardian regarding: the historical points, exam findings, and any diagnostic results supporting the discharge/admit diagnosis, lab results, the need for outpatient follow up, to return to the emergency department if symptoms worsen or persist or if there are any questions or concerns that arise at home. Response to treatment: the patient's symptoms have markedly improved after treatment. 02:43 Patient medically screened. mh7 07/26 00:02 Order name: Strep; Complete Time: 02:07 lp 10/25 00:05 Order name: Influenza Screen (A ; Complete Time: 02:07 EDMS 10/25 02:09 Order name: Throat Culture EDIL 10/25 02:27 Order name: SARS-COV-2 RT PCR; Complete Time: 02:36 EDMS Administered Medications: No medications were administered Disposition Summary: 10/25/20 02:43 Discharge Ordered Location: Home [facility] Problem: new [facility] Symptoms: have improved [facility] Condition: Stable [facility] Diagnosis - Viral Syndrome [facility] - Foreign body granuloma of soft tissue, not elsewhere classified, right forearm - [facility] Chronic Followup: [facility] - With: Private Physician - When: 1 - 2 days - Reason: Worsening of condition, Recheck today's complaints, Continuance of care, Re-evaluation by your physician Followup: [facility] - With: Scooter Ortiz MD - When: 1 - 2 days - Reason: Worsening of condition, Recheck today's complaints Discharge Instructions: - Discharge Summary Sheet [facility] - Viral Respiratory Infection, [id number] [facility] - Skin Foreign Body [facility] Forms: - Medication Reconciliation Form 7 - Work release form lp1 - Thank You Letter [facility] - Antibiotic Education [facility] - Prescription Opioid Use [facility] Signatures: Dispatcher [employer] Aida Maynard RN RN lp1 Rosales Hopper MD MD [facility] Corrections: (The following items were deleted from the chart) 01: 00:03 Influenza Screen (A \T\ B)+[id number].BRZ ordered. [facility]
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
[2020-10-27 03:23] VITALS: TEMP 98.8
[2020-10-27 03:25] VITALS: BP 140/84; O2SAT 100
== END 2020-10-25 02:53 | disposition home or self-care (01) ==
LOC: ER 23:15
DX: B34.9 Viral infection, unspecified (principal); M60.231 Foreign body granuloma of soft tissue, not elsewhere classified, right forearm; Z86.16 Personal history of COVID-19

== ENCOUNTER 2020-11-27 20:58 | Emergency (ER) | payer SELFPAY ==
[2020-11-28] MEDS ORDERED: DIPHENHYDRAMINE 50 MG/ML VIAL ONE (05:15)
[2020-11-28] MEDS ORDERED: NA CHLORIDE 0.9% 1,000 ML ONE (05:15)
[2020-11-28] MEDS ORDERED: METOCLOPRAMIDE 10 MG/2mL INJ ONE (05:16)
[2020-11-28 05:39] LABS: Absolute Lymphocytes (CBC) 2.9 K/uL (0.7-4.9); Basophils % 0.5 % (0-1.3); Lymphocytes % 37.6 % (15.3-44.8); MPV 7.6 fL (7.6-11.3); RBC Red Blood Cell Count 4.61 M/uL (4.33-5.43)
[2020-11-28 05:48] LABS: ALT/SGPT 40 U/L (12-78); AST/SGOT 21 U/L (15-37); Albumin 4.5 g/dL (3.4-5.0); Alkaline Phosphatase 87 U/L (45-117); BUN Blood Urea Nitrogen 13 mg/dL (7-18); Bicarbonate 30 mmol/L (21-32); Bilirubin Direct 0.1 mg/dL (0-0.2); Bilirubin Total 0.4 mg/dL (0.2-1.0); Glucose Level 103 mg/dL (74-106); Potassium 3.6 mmol/L (3.5-5.1); Sodium Level 140 mmol/L (136-145)
--- NOTE | 2020-11-28 06:58 | EDPHYS ---
Physician Documentation [facility] Name: Dominguez Easton Age: 25 yrs Sex: Male : 1995 Arrival Date: 11/27/2020 Time: 21:00 Bed DIS3 Private MD: ED Physician Rosales Hopper HPI: 11/28 04:20 This 25 yrs old Male presents to ER via Ambulatory with complaints of mh7 Dizziness, FATIGUE. 04:20 The patient presents with dizziness, lightheadedness. Onset: The symptoms/episode mh7 began/occurred 2 day(s) ago. Context: occurred at work, occurred while the patient was sitting, just prior to the episode the patient experienced no apparent symptoms. Modifying factors: The symptoms are alleviated by nothing, the symptoms are aggravated by nothing. Associated signs and symptoms: Pertinent positives: headache, Pertinent negatives: abdominal pain, agitation, ataxia, blurred vision, chest pain, combativeness, confusion, diaphoresis, focal weakness, head injury, nausea, near-syncope, numbness, palpitations, seizure, shortness of breath, syncope, tingling, vomiting. Severity of symptoms: At their worst the symptoms were moderate 2 day(s) ago, in the emergency department the symptoms have improved moderately. Patient reports intermittent dizziness and flare up of migraine headache for the past 2 days. Is also had generalized fatigue. He denies any fever, neck pain, chest pain, abdominal pain, cough, shortness of breath, nausea, vomiting, numbness/tingling, or focal weakness.. Historical: - Allergies: 11/27 22:07 No Known Allergies; iw - PMHx: 22:07 ADD/ADHD; Asperger's; Bipolar disorder; collar bone fx; covid 19; Migraines; iw - Immunization history:: Client reports having NOT received the Covid vaccine. - Social history:: Smoking status: Patient denies any tobacco usage or history of. ROS: 11/28 04:20 Constitutional: Negative for fever, chills, and weight loss, Eyes: Negative for injury, mh7 pain, redness, and discharge, ENT: Negative for injury, pain, and discharge, Neck: Negative for injury, pain, and swelling, Cardiovascular: Negative for chest pain, palpitations, and edema, Respiratory: Negative for shortness of breath, cough, wheezing, and pleuritic chest pain, Abdomen/GI: Negative for abdominal pain, nausea, vomiting, diarrhea, and constipation, Back: Negative for injury and pain, : Negative for injury, bleeding, discharge, and swelling, MS/Extremity: Negative for injury and deformity, Skin: Negative for injury, rash, and discoloration, Psych: Negative for depression, anxiety, suicide ideation, homicidal ideation, and hallucinations, Allergy/Immunology: Negative for hives, rash, and allergies, Endocrine: Negative for neck swelling, polydipsia, polyuria, polyphagia, and marked weight changes, Hematologic/Lymphatic: Negative for swollen nodes, abnormal bleeding, and unusual bruising. Exam: 04:20 Constitutional: This is a well developed, well nourished patient who is awake, alert, mh7 and in no acute distress. Head/Face: Normocephalic, atraumatic. Eyes: Pupils equal round and reactive to light, extra-ocular motions intact. Lids and lashes normal. Conjunctiva and sclera are non-icteric and not injected. Cornea within normal limits. Periorbital areas with no swelling, redness, or edema. ENT: Nares patent. No nasal discharge, no septal abnormalities noted. Tympanic membranes are normal and external auditory canals are clear. Oropharynx with no redness, swelling, or masses, exudates, or evidence of obstruction, uvula midline. Mucous membranes moist. Neck: Trachea midline, no thyromegaly or masses palpated, and no cervical lymphadenopathy. Supple, full range of motion without nuchal rigidity, or vertebral point tenderness. No Meningismus. Chest/axilla: Normal chest wall appearance and motion. Nontender with no deformity. No lesions are appreciated. Cardiovascular: Regular rate and rhythm with a normal S1 and S2. No gallops, murmurs, or rubs. Normal PMI, no JVD. No pulse deficits. Respiratory: Lungs have equal breath sounds bilaterally, clear to auscultation and percussion. No rales, rhonchi or wheezes noted. No increased work of breathing, no retractions or nasal flaring. Abdomen/GI: Soft, non-tender, with normal bowel sounds. No distension or tympany. No guarding or rebound. No evidence of tenderness throughout. Back: No spinal tenderness. No costovertebral tenderness. Full range of motion. Skin: Warm, dry with normal turgor. Normal color with no rashes, no lesions, and no evidence of cellulitis. MS/ Extremity: Pulses equal, no cyanosis. Neurovascular intact. Full, normal range of motion. Neuro: Awake and alert, GCS 15, oriented to person, place, time, and situation. Cranial nerves II-XII grossly intact. Motor strength 5/5 in all extremities. Sensory grossly intact. Cerebellar exam normal. Normal gait. Psych: Awake, alert, with orientation to person, place and time. Behavior, mood, and affect are within normal limits. Vital Signs: 11/27 22:05 BP 143 / 96; Pulse 74; Resp 16; Temp 98.5; Pulse Ox 98% on R/A; Weight 68.04 kg; Height iw 6 ft. 1 in. (185.42 cm); Pain 10/09; 11/28 04:41 BP 125 / 87; Pulse 65; Resp 16; Temp 97.3; Pulse Ox 95% on R/A; tt3 05:22 BP 143 / 79; Pulse 104; Resp 16 S; Pulse Ox 97% ; bb 11/27 22:05 Body Mass Index 19.79 (68.04 kg, 185.42 cm) iw MDM: 06:55 Differential diagnosis: generalized weakness, hypovolemia, idiopathic dizziness, mh7 near-syncope, syncope, vertigo. Data reviewed: vital signs, nurses notes, old medical records, lab test result(s), CBC, electrolytes, Flu: negative Covid negative, EKG, radiologic studies, CT scan. Data interpreted: Pulse oximetry: on room air is 97 %. Interpretation: normal. Counseling: I had a detailed discussion with the patient and/or guardian regarding: the historical points, exam findings, and any diagnostic results supporting the discharge/admit diagnosis, the presence of at least one elevated blood pressure reading (>120/80) during this emergency department visit, lab results, radiology results, the need for outpatient follow up, to return to the emergency department if symptoms worsen or persist or if there are any questions or concerns that arise at home. Response to treatment: the patient's symptoms have resolved after treatment, the patient's blood pressure is in an acceptable range, mental status has returned to baseline, the patient no longer shows bradycardia, the patient is not short of breath, the patient is not tachycardic, the patient's pain is gone, the patient's temperature has normalized, the patient's condition has returned to base line, the patient is now symptom free, patient is well hydrated. 06:57 Patient medically screened. [facility] 11/28 03:26 Order name: SARS-COV-2 RT PCR; Complete Time: 03:39 EDMS 11/28 04:35 Order name: CBC with Diff; Complete Time: 05:51 [facility] 11/28 04:35 Order name: Basic Metabolic Panel; Complete Time: 05:51 [facility] 11/28 04:35 Order name: LFT's; Complete Time: 05:51 [facility] 11/28 04:35 Order name: UDS [facility] 11/28 04:35 Order name: Saline Lock; Complete Time: 05:14 [facility] 11/28 04:35 Order name: Urine Dipstick-Ancillary (obtain specimen); Complete Time: 07:06 [facility] 11/28 04:35 Order name: EKG - Nurse/Tech; Complete Time: 07:06 [facility] 11/28 05:11 Order name: CT Head Brain wo Cont [facility] 11/28 07:05 Order name: Urine Dipstick-Ancillary EDMS Administered Medications: 05:05 Drug: NS 0.9% 1000 ml Route: IV; Rate: 1000 ml; Site: left antecubital; bb 05:07 Drug: Benadryl (diphenhydrAMINE) 50 mg Route: IVP; Site: left antecubital; bb 05:15 Drug: Reglan (metoCLOPramide) 10 mg Route: IVP; Site: left antecubital; bb Disposition Summary: 11/28/20 06:57 Discharge Ordered Location: Home [facility] Problem: new [facility] Symptoms: have improved [facility] Condition: Stable [facility] Diagnosis - Dizziness and giddiness 7 - Headache [facility] Followup: [facility] - With: Private Physician - When: 1 - 2 days - Reason: Worsening of condition, Recheck today's complaints, Continuance of care, Re-evaluation by your physician Followup: [facility] - With: Zi Benavides MD - When: 1 - 2 days - Reason: Worsening of condition, Recheck today's complaints Discharge Instructions: - Discharge Summary Sheet [facility] - Dizziness [facility] - General Headache Without Cause [facility] Forms: - Medication Reconciliation Form [facility] - Thank You Letter mh7 - Work release form eb - Antibiotic Education [facility] - Prescription Opioid Use [facility] Signatures: Dispatcher [employer] EDTracey Shultz RN RN bb Williams, Irene, RN RN iw Holmes, Maurice, MD MD 7 Corrections: (The following items were deleted from the chart) 02:33 01:50 CORONAVIRUS+BRZ ordered. EDMS EDMS
--- NOTE | 2020-11-28 06:58 | ER ---
Nurse's Notes [facility] Name: Dominguez Easton Age: 25 yrs Sex: Male : 1995 Arrival Date: 11/27/2020 Time: 21:00 Bed DIS3 Private MD: Diagnosis: Dizziness and giddiness;Headache Presentation: 11/27 22:05 Chief complaint: Patient states: yesterday started having a migraine, and was dizzy at iw work yesterday, has hx of migraines but usually doesn't get dizzy , also feels very fatigued. Coronavirus screen: Client presents with at least one sign or symptom that may indicate coronavirus-19. Ebola Screen: Patient negative for fever greater than or equal to 101.5 degrees Fahrenheit, and additional compatible Ebola Virus Disease symptoms Patient denies exposure to infectious person. Patient denies travel to an Ebola-affected area in the 21 days before illness onset. No symptoms or risks identified at this time. Initial Sepsis Screen: Does the patient meet any 2 criteria? No. Patient's initial sepsis screen is negative. Does the patient have a suspected source of infection? No. Patient's initial sepsis screen is negative. Risk Assessment: Do you want to hurt yourself or someone else? Patient reports no desire to harm self or others. Onset of symptoms was November 26, 2020. 22:05 Method Of Arrival: Ambulatory iw 22:05 Acuity: SACHI 3 iw Historical: - Allergies: 22:07 No Known Allergies; iw - PMHx: 22:07 ADD/ADHD; Asperger's; Bipolar disorder; collar bone fx; covid 19; Migraines; iw - Immunization history:: Client reports having NOT received the Covid vaccine. - Social history:: Smoking status: Patient denies any tobacco usage or history of. Screenin/29 03:30 Abuse screen: Denies threats or abuse. Nutritional screening: No deficits noted. bb Tuberculosis screening: No symptoms or risk factors identified. Fall Risk None identified. Assessment: 03:30 General: Appears in no apparent distress. Behavior is calm, cooperative. Pain: Denies bb pain. Neuro: Level of Consciousness is awake, alert, obeys commands, Oriented to person, place, time, situation. Cardiovascular: Capillary refill < 3 seconds Patient's skin is warm and dry. Respiratory: Respiratory effort is even, unlabored, Respiratory pattern is regular. GI: No signs and/or symptoms were reported involving the gastrointestinal system. Derm: Skin is pink, warm \\T\\ dry. Musculoskeletal: Circulation, motion, and sensation intact. 05:23 Reassessment: pt states "I am feeling really strange" pt reassured VS stable will bb continue to monitor. Vital Signs: 11/27 22:05 BP 143 / 96; Pulse 74; Resp 16; Temp 98.5; Pulse Ox 98% on R/A; Weight 68.04 kg; Height iw 6 ft. 1 in. (185.42 cm); Pain /; 11/28 04:41 BP 125 / 87; Pulse 65; Resp 16; Temp 97.3; Pulse Ox 95% on R/A; tt3 05:22 BP 143 / 79; Pulse 104; Resp 16 S; Pulse Ox 97% ; bb 11/27 22:05 Body Mass Index 19.79 (68.04 kg, 185.42 cm) iw ED Course: 11/27 21:00 Patient arrived in ED. wm 22:07 Triage completed. iw 22:08 Arm band placed on. iw 11/28 03:30 Patient has correct armband on for positive identification. bb 03:39 Rosales Hopper MD is Attending Physician. 7 04:46 Tracey Lanier, ZIA is Primary Nurse. bb 05:05 Initial lab(s) drawn, by me, sent to lab. Inserted saline lock: 20 gauge in left bb antecubital area, using aseptic technique. Blood collected. 05:38 CT Head Brain wo Cont In Process Unspecified. EDMS 06:57 Zi Benavides MD is Referral Physician. 7 07:31 No provider procedures requiring assistance completed. IV discontinued, intact, ss bleeding controlled, No redness/swelling at site. Pressure dressing applied. Administered Medications: 05:05 Drug: NS 0.9% 1000 ml Route: IV; Rate: 1000 ml; Site: left antecubital; bb 05:07 Drug: Benadryl (diphenhydrAMINE) 50 mg Route: IVP; Site: left antecubital; bb 05:15 Drug: Reglan (metoCLOPramide) 10 mg Route: IVP; Site: left antecubital; bb Outcome: 06:57 Discharge ordered by MD. mh7 07:31 Discharged to home ambulatory. 07:31 Condition: good 07:31 Discharge instructions given to patient, Instructed on discharge instructions, follow up and referral plans. Demonstrated understanding of instructions, follow-up care. 07:32 Patient left the ED. Signatures: Dispatcher [employer] EDMS Tracey Lanier RN RN bb Williams, Irene, RN RN iw Nadine Hernandez RN RN ss Holmes, Maurice, MD MD 7 Joe Huntley Wendy wm Corrections: (The following items were deleted from the chart) 11/27 22:07 22:05 BP 143 / 96; Pulse 74bpm; Resp 16bpm; Pulse Ox 98% RA; Temp 98.5F; iw iw
[2020-11-28 07:06] LABS: Urine Blood Negative (Negative); Urine Glucose Negative (Negative); Urine Protein Negative (Negative); Urine Specific Gravity 1.015 (1.005-1.030)
[2020-11-28 07:30] LABS: Barbiturates NEGATIVE (NEGATIVE); Benzodiazepines NEGATIVE (NEGATIVE); Cocaine NEGATIVE (NEGATIVE); METHAMPHETAM NEGATIVE (NEGATIVE); Methadone NEGATIVE (NEGATIVE); Opiates NEGATIVE (NEGATIVE); Phencyclidine NEGATIVE (NEGATIVE); THC Cannibis NEGATIVE (NEGATIVE)
[2020-11-28 07:40] VITALS: TEMP 97.3
[2020-11-28 07:41] VITALS: BP 143/79; O2SAT 97
--- NOTE | 2020-11-29 11:34 | RAD REPORT ---
EXAM DESCRIPTION: CT - Head Brain Wo Cont - 11/28/2020 7:04 am CLINICAL HISTORY: The patient is 25 years old and is Male; Dizziness;Headache TECHNIQUE: Axial computed tomography images of the head/brain without intravenous contrast. Sagitt al and coronal reformatted images were created and reviewed. This CT exam was performed using one o r more of the following dose reduction techniques: automated exposure control, adjustment of the mA and/or kV according to patient size, and/or use of iterative reconstruction technique. COMPARISON: CT head July 15, 2020. FINDINGS: Brain: Unremarkable. No hemorrhage. No significant white matter disease. No edema. Ventricles: Unremarkable. No ventriculomegaly. Bones/joints: Unremarkable. No acute skull fracture. Soft tissues: Unremarkable. Sinuses: Unremarkable as visualized. No acute sinusitis. Mastoid air cells: No significant mastoid fluid. IMPRESSION: No acute intracranial findings. No hemorrhage. Electronically signed by: Patricia Jensen MD 11/28/2020 6:02 AM CDT Due to temporary technical issues with the PACS/Fluency reporting system, reports are being signed by the in house radiologist without review as a courtesy to ensure prompt reporting. The interpreting r adiologist is fully responsible for the content of the report.
== END 2020-11-28 07:32 | disposition home or self-care (01) ==
LOC: ER 20:58
DX: R51.9 Headache, unspecified (principal); Z86.16 Personal history of COVID-19
CPT/HCPCS: 36415; 70450; 80048; 80076; 80307; 81003; 85025; 93005; 96374; 96375; 99284; J1200; J2765; J7030; U0003

== ENCOUNTER 2022-06-06 14:50 | Emergency (ER) | payer SELFPAY ==
[2022-06-06 15:25] LABS: Absolute Lymphocytes (CBC) 2.8 K/uL (0.7-4.9); Hematocrit 44.1 % (39.6-49.0); Lymphocytes % 33.4 % (15.3-44.8); MCV 89.9 fL (80-100); MPV 7.4 fL (7.6-11.3); RBC Red Blood Cell Count 4.91 M/uL (4.33-5.43)
--- NOTE | 2022-06-06 15:33 | RAD REPORT ---
EXAM DESCRIPTION: RAD - Chest Single View - 06/06/2022 3:27 pm CLINICAL HISTORY: Chest pain;Congestion;Cough Chest pain. COMPARISON: Chest Pa And Lat (2 Views) dated 03/26/2021; Chest Single View dated 11/04/2019; Chest Sin gle View dated 10/11/2019 FINDINGS: Portable technique limits examination quality. The lungs are grossly clear. The heart is normal in size. No displaced fractures. IMPRESSION: No acute intrathoracic process suspected.
[2022-06-06 15:50] LABS: Albumin 4.5 g/dL (3.4-5.0); Bilirubin Direct 0.1 mg/dL (0-0.2); Bilirubin Total 0.5 mg/dL (0.2-1.0); Magnesium 2.2 mg/dL (1.6-2.4); Protein, Total 8.2 g/dL (6.4-8.2); Troponin High Sensitivity 4.1 pg/mL (<58.9)
[2022-06-06 17:18] LABS: Protime INR 1.05
[2022-06-06] MEDS ORDERED: NA CHLORIDE 0.9% 1,000 ML ONE (17:58)
--- NOTE | 2022-06-06 18:22 | RAD REPORT ---
EXAM DESCRIPTION: CT - Stone Protocol - 06/06/2022 5:55 pm CLINICAL HISTORY: Flank pain. PAIN COMPARISON: Abdomen Pelvis W Contrast dated 08/08/2016 TECHNIQUE: Axial images were obtained without oral or IV contrast. Lack of contrast limits solid org an and vascular assessment. The [id number] spans the entirety of the system partially obscuring uppermost abdomen and lung bases. Coronal reformatted images were obtained and reviewed. All CT scans are performed using dose optimization technique as appropriate and may include automated exposure control or mA/KV adjustment according to patient size. FINDINGS: The lower lung ventura are clear. Imaged portions of the liver and spleen show no suspicious findings on non-contrast imaging. The panc reas and adrenal glands are normal. No pathologic lymphadenopathy in the abdomen or pelvis. No urinary tract stones or obstructive uropathy. No bowel obstruction, free air, free fluid or abscess. Normal appendix noted.Moderate stool retained throughout the colon. . Sigmoid diverticulosis coli without diverticulitis. Small fat containing umbi lical hernia. No significant bony abnormality. IMPRESSION: No urinary tract stones or obstructive uropathy.
[2022-06-06 18:44] LABS: Urine Blood Negative (Negative); Urine Glucose Negative (Negative); Urine Protein 2+ (Negative); Urine Specific Gravity 1.025 (1.005-1.030)
[2022-06-06 19:01] LABS: Urine Bacteria None Seen /HPF (<20); Urine Mucus Slight /HPF (None Seen); Urine RBC <5 /HPF (None Seen); Urine Sperm Present (None Seen)
[2022-06-06 20:49] VITALS: BP 120/79; TEMP 97.9; O2SAT 97
--- NOTE | 2022-06-07 13:04 | EKG ---
Test Date: 2022-06-06 Test Time: 17:35:58 Moss Gatherer: SANDRA MEASUREMENT RESULTS: Intervals: Rate: 76 IA: 132 QRSD: 90 QT: 380 QTc: 427 [place]: P: 64 IA: 132 QRS: 42 T: 46 INTERPRETIVE STATEMENTS: Normal sinus rhythm Normal ECG Compared to ECG 03/26/2021 05:12:58 Sinus arrhythmia no longer present Electronically Signed On 06-07-22 13:02:59 CHIEF CONTROLLER by Ion Salvador
--- NOTE | 2022-06-23 14:15 | EDPHYS ---
Physician Documentation [facility] Name: Domniguez Easton Age: 27 yrs Sex: Male : 1995 Arrival Date: 06/06/2022 Time: 14:51 Bed Treatment Private MD: Jl Powell HPI: 06/06 17:33 This 27 yrs old Male presents to ER via Ambulatory with complaints of ashley Shortness Of Breath, lightheaded, lung and kidney pain. 17:33 The patient has shortness of breath at rest, with light activity. Onset: The ashley symptoms/episode began/occurred 3 day(s) ago. Historical: - Allergies: 15:16 No Known Allergies; ld1 - PMHx: 15:16 ADD/ADHD; Asperger's; Bipolar disorder; collar bone fx; covid 19; Migraines; ld1 - PSHx: 15:16 jaw reconstruction; ld1 - Immunization history:: Adult Immunizations up to date, Client reports receiving the 2nd dose of the Covid vaccine. - Social history:: Smoking status: Patient denies any tobacco usage or history of. Patient/guardian denies using alcohol. ROS: 17:33 Constitutional: Negative for fever, chills, and weight loss, Eyes: Negative for injury, ashley pain, redness, and discharge, ENT: Negative for injury, pain, and discharge, Neck: Negative for injury, pain, and swelling, Cardiovascular: Negative for chest pain, palpitations, and edema, Respiratory: Negative for shortness of breath, cough, wheezing, and pleuritic chest pain, Abdomen/GI: Negative for abdominal pain, nausea, vomiting, diarrhea, and constipation, : Negative for injury, bleeding, discharge, and swelling, MS/Extremity: Negative for injury and deformity, Skin: Negative for injury, rash, and discoloration, Neuro: Negative for headache, weakness, numbness, tingling, and seizure, Psych: Negative for depression, anxiety, suicide ideation, homicidal ideation, and hallucinations, Allergy/Immunology: Negative for hives, rash, and allergies, Endocrine: Negative for neck swelling, polydipsia, polyuria, polyphagia, and marked weight changes, Hematologic/Lymphatic: Negative for swollen nodes, abnormal bleeding, and unusual bruising. 17:33 Back: Positive for pain at rest, flank pain, on the left. Exam: 17:33 Constitutional: This is a well developed, well nourished patient who is awake, alert, ashley and in no acute distress. Head/Face: Normocephalic, atraumatic. Eyes: Pupils equal round and reactive to light, extra-ocular motions intact. Lids and lashes normal. Conjunctiva and sclera are non-icteric and not injected. Cornea within normal limits. Periorbital areas with no swelling, redness, or edema. ENT: Nares patent. No nasal discharge, no septal abnormalities noted. Tympanic membranes are normal and external auditory canals are clear. Oropharynx with no redness, swelling, or masses, exudates, or evidence of obstruction, uvula midline. Mucous membranes moist. Neck: Trachea midline, no thyromegaly or masses palpated, and no cervical lymphadenopathy. Supple, full range of motion without nuchal rigidity, or vertebral point tenderness. No Meningismus. Chest/axilla: Normal chest wall appearance and motion. Nontender with no deformity. No lesions are appreciated. Cardiovascular: Regular rate and rhythm with a normal S1 and S2. No gallops, murmurs, or rubs. Normal PMI, no JVD. No pulse deficits. Respiratory: Lungs have equal breath sounds bilaterally, clear to auscultation and percussion. No rales, rhonchi or wheezes noted. No increased work of breathing, no retractions or nasal flaring. Abdomen/GI: Soft, non-tender, with normal bowel sounds. No distension or tympany. No guarding or rebound. No evidence of tenderness throughout. Back: No spinal tenderness. No costovertebral tenderness. Full range of motion. Skin: Warm, dry with normal turgor. Normal color with no rashes, no lesions, and no evidence of cellulitis. MS/ Extremity: Pulses equal, no cyanosis. Neurovascular intact. Full, normal range of motion. Neuro: Awake and alert, GCS 15, oriented to person, place, time, and situation. Cranial nerves II-XII grossly intact. Motor strength 5/5 in all extremities. Sensory grossly intact. Cerebellar exam normal. Normal gait. Psych: Awake, alert, with orientation to person, place and time. Behavior, mood, and affect are within normal limits. 17:40 ECG was reviewed by the Attending Physician. [facility] Vital Signs: 15:15 BP 120 / 79; Pulse 75; Resp 18; Temp 97.9(TE); Pulse Ox 97% on R/A; Weight 86.18 kg; ld1 Height 5 ft. 8 in. ; Pain 6/10; 15:15 Body Mass Index 28.89 (86.18 kg, 172.72 cm) ld1 15:15 Pain Scale: Adult ld1 MDM: 14:54 Patient medically screened. ashley 17:34 Differential diagnosis: Anemia Bronchitis CHF exacerbation, arthritis, Cholelithiasis ashley Fatigue Fracture Ligament Injury Peptic Ulcer ruptured disc, Ureterolithiasis pneumonia, Pulmonary Embolism Unstable Angina. Antibiotic administration: Not indicated. Immunization status:. Data reviewed: vital signs, nurses notes, lab test result(s), EKG, radiologic studies, CT scan, plain films. Consideration of Admission/Observation Escalation of care including admission/observation considered. I considered the following discharge prescriptions or medication management in the emergency department Medications were administered in the Emergency Department. See MAR. Test considered but Not performed: CT: no ct chest angio. Care significantly affected by the following chronic conditions: adhd, add, bipolar. Care significantly affected by the following Social Determinants of Health: Poor access to healthcare and/or lack of insurance. Counseling: I had a detailed discussion with the patient and/or guardian regarding: the historical points, exam findings, and any diagnostic results supporting the discharge/admit diagnosis, lab results, radiology results, the need for outpatient follow up, for definitive care, a family practitioner. 06/06 14:55 Order name: Basic Metabolic Panel 06/06 14:55 Order name: CBC with Diff 06/06 14:55 Order name: D-Dimer 06/06 14:55 Order name: LFT's 06/06 14:55 Order name: Magnesium 06/06 14:55 Order name: NT PRO-BNP 06/06 14:55 Order name: PT-INR 06/06 14:55 Order name: Troponin HS 06/06 14:55 Order name: Lipase 06/06 15:29 Order name: CBC with Automated Diff; Complete Time: 15:57 EDMS 06/06 15:51 Order name: Basic Metabolic Panel; Complete Time: 15:57 EDMS 06/06 15:51 Order name: Liver (Hepatic) Function; Complete Time: 15:57 EDMS 06/06 15:51 Order name: Troponin High Sensitivity; Complete Time: 15:57 EDMD 06/06 15:51 Order name: NT PRO-BNP; Complete Time: 15:57 EDMD 06/06 15:51 Order name: Magnesium; Complete Time: 15:57 EDMD 06/06 15:51 Order name: Lipase; Complete Time: 15:57 [facility] 06/06 17:19 Order name: Protime (+INR); Complete Time: 17:28 EDMD 06/06 17:19 Order name: D-Dimer; Complete Time: 17:28 [facility] 06/06 17:32 Order name: Urine Microscopic Only [facility] 06/06 18:44 Order name: Urine Dipstick-Ancillary [facility] 06/06 14:55 Order name: XRAY Chest (1 view) [facility] 06/06 15:33 Order name: RAD; Complete Time: 15:57 [facility] 06/06 17:31 Order name: CT Stone Protocol [facility] 06/06 14:55 Order name: EKG; Complete Time: 14:56 [facility] 06/06 14:55 Order name: Cardiac monitoring [facility] 06/06 14:55 Order name: EKG - Nurse/Tech [facility] 06/06 14:55 Order name: IV Saline Lock; Complete Time: 15:18 [facility] 06/06 14:55 Order name: Labs collected and sent; Complete Time: 15:18 [facility] 06/06 14:55 Order name: O2 Per Protocol [facility] 06/06 14:55 Order name: O2 Sat Monitoring [facility] 06/06 14:55 Order name: Urine Dipstick-Ancillary (obtain specimen) [facility] 06/06 17:33 Order name: PO challenge; Complete Time: 17:52 [facility] EC:40 Rate is 76 beats/min. Rhythm is regular. QRS [place] is Normal. QRS interval is normal. QT ashley interval is normal. No Q waves. T waves are Normal. Clinical impression: Normal ECG and No evidence of ischemia. Interpreted by me. Reviewed by me. Administered Medications: 18:19 Drug: NS 0.9% IV 1000 ml Route: IV; Rate: 1 bolus; Site: right antecubital; mb9 20:11 Follow up: Response: No adverse reaction; IV Status: Completed infusion; IV Intake: kr3 1000ml Disposition Summary: 06/06/22 17:56 Discharge Ordered Location: Home ashley Problem: new ashley Symptoms: have improved ashley Condition: Stable ashley Diagnosis - Unspecified symptoms and signs involving the musculoskeletal system ashley - Dyspnea ashley - Bipolar disorder, unspecified ashley Followup: ashley - With: Private Physician - When: 2 - 3 days - Reason: Recheck today's complaints, Continuance of care, Re-evaluation by your physician Followup: ashley - With: - When: 2 - 3 days - Reason: Recheck today's complaints, Continuance of care, Re-evaluation by your physician Discharge Instructions: - Discharge Summary Sheet ashley - Flank Pain, Adult ashley - Shortness of Breath, Adult ashley - Shortness of Breath, Adult, [id number] ashley - Flank Pain, Adult, [id number] ashley - Supporting Someone With Bipolar Disorder ashley Forms: - Medication Reconciliation Form ashley - Thank You Letter ashley - Antibiotic Education ashley - Prescription Opioid Use ashley Prescriptions: - Ibuprofen 600 mg Oral Tablet - take 1 tablet by ORAL route every 8 hours As needed take with food; 21 tablet; ashley Refills: 0, Product Selection Permitted Signatures: Dispatcher [employer] EDMS Jl Angeles MD MD cha Dibbern, Lauren RN RN ld1 Jesusita Vega RN RN mb9 Parvin Campos RN kr3 Corrections: (The following items were deleted from the chart) 17:45 17:38 Chest For Pe Angio ordered. EDMS EDMS 18:01 17:40 Lower Extremity Arterial Bilat ordered. EDMS EDMS
--- NOTE | 2022-06-23 14:15 | ER ---
Nurse's Notes [facility] Name: Dominguez Easton Age: 27 yrs Sex: Male : 1995 Arrival Date: 06/06/2022 Time: 14:51 Bed Treatment Private MD: Diagnosis: Unspecified symptoms and signs involving the musculoskeletal system;Dyspnea;Bipolar disorder, unspecified Presentation: 06/06 15:15 Chief complaint: Patient states: MERLYN flank pain, lung pain, kidney pain, dizziness, ld1 fatigue, SOB X 2-3 days. Coronavirus screen: At this time, the client does not indicate any symptoms associated with coronavirus-19. Ebola Screen: No symptoms or risks identified at this time. Initial Sepsis Screen: Does the patient meet any 2 criteria? No. Patient's initial sepsis screen is negative. Does the patient have a suspected source of infection? No. Patient's initial sepsis screen is negative. Risk Assessment: Do you want to hurt yourself or someone else? Patient reports no desire to harm self or others. Onset of symptoms was June 06, 2022. 15:15 Method Of Arrival: Ambulatory ld1 15:15 Acuity: SACHI 3 ld1 Triage Assessment: 15:16 General: Appears in no apparent distress. comfortable, Behavior is calm, cooperative, ld1 appropriate for age. Pain: Complains of pain in low back area and diaphragm Pain does not radiate. Pain currently is 6 out of 10 on a pain scale. Quality of pain is described as pressure, Pain began 2-3 days ago. Is continuous. EENT: No signs and/or symptoms were reported regarding the EENT system. Neuro: Level of Consciousness is awake, alert, obeys commands, Oriented to person, place, time, situation. Cardiovascular: Capillary refill < 3 seconds Patient's skin is warm and dry. Respiratory: Reports shortness of breath Airway is patent Respiratory effort is even, unlabored, Onset: The symptoms/episode began/occurred yesterday, the patient has mild shortness of breath. GI: Abdomen is flat, non-distended. : No signs and/or symptoms were reported regarding the genitourinary system. Derm: No signs and/or symptoms reported regarding the dermatologic system. Musculoskeletal: No signs and/or symptoms reported regarding the musculoskeletal system. Historical: - Allergies: 15:16 No Known Allergies; ld1 - PMHx: 15:16 ADD/ADHD; Asperger's; Bipolar disorder; collar bone fx; covid 19; Migraines; ld1 - PSHx: 15:16 jaw reconstruction; ld1 - Immunization history:: Adult Immunizations up to date, Client reports receiving the 2nd dose of the Covid vaccine. - Social history:: Smoking status: Patient denies any tobacco usage or history of. Patient/guardian denies using alcohol. Screenin:10 [facility] ED Fall Risk Assessment (Adult) History of falling in the last 3 months, kr3 including since admission No falls in past 3 months (0 pts) Confusion or Disorientation No (0 pts) Intoxicated or Sedated No (0 pts) Impaired Gait No (0 pts) Mobility Assist Device Used No (0 pt) Altered Elimination No (0 pt) Score/Fall Risk Level 0 - 2 = Low Risk Oriented to surroundings, Maintained a safe environment, Educated pt \T\ family on fall prevention, incl call for assistance when getting out of bed, Assessed \T\ reinforced patient's understanding of fall precautions, Hourly rounding (assess needs \T\ fall precautionary measures) done. Abuse screen: Denies threats or abuse. Nutritional screening: No deficits noted. Tuberculosis screening: No symptoms or risk factors identified. Assessment: 17:52 Reassessment: pt taken to CT via stretcher. mb9 20:11 Cardiovascular: Rhythm is regular. kr3 Vital Signs: 15:15 BP 120 / 79; Pulse 75; Resp 18; Temp 97.9(TE); Pulse Ox 97% on R/A; Weight 86.18 kg; ld1 Height 5 ft. 8 in. ; Pain 6/10; 15:15 Body Mass Index 28.89 (86.18 kg, 172.72 cm) ld1 15:15 Pain Scale: Adult ld1 ED Course: 14:51 Patient arrived in ED. am2 14:54 Jl Angeles MD is Attending Physician. [facility] 15:16 Triage completed. ld1 15:16 Arm band placed on right wrist. ld1 15:22 Inserted saline lock: 20 gauge in right antecubital area, using aseptic technique. ah1 Blood collected. 15:22 Lipase Sent. ah1 15:22 Basic Metabolic Panel Sent. 1 15:22 CBC with Diff Sent. ah1 15:22 D-Dimer Sent. ah1 15:22 LFT's Sent. 1 15:22 Magnesium Sent. 1 15:22 NT PRO-BNP Sent. 1 15:22 PT-INR Sent. 1 15:22 Troponin HS Sent. 1 15:30 Bed in low position. Call light in reach. Side rails up X 1. kr3 17:56 Suhas Carbajal DO is Referral Physician. [facility] 17:57 CT Stone Protocol In Process Unspecified. EDMS 18:32 Urine Microscopic Only Sent. 1 18:50 Parvin Campos, RN is Primary Nurse. kr3 20:10 No provider procedures requiring assistance completed. IV discontinued, intact, kr3 bleeding controlled, No redness/swelling at site. Pressure dressing applied. Administered Medications: 18:19 Drug: NS 0.9% IV 1000 ml Route: IV; Rate: 1 bolus; Site: right antecubital; mb9 20:11 Follow up: Response: No adverse reaction; IV Status: Completed infusion; IV Intake: kr3 1000ml Medication: 20:11 VIS not applicable for this client. kr3 Intake: 20:11 IV: 1000ml; Total: 1000ml. kr3 Outcome: 17:56 Discharge ordered by . ashley 19:05 Patient left the ED. kr3 20:10 Discharged to home ambulatory. kr3 20:10 Condition: stable 20:10 Discharge instructions given to patient, Instructed on discharge instructions, follow up and referral plans. Demonstrated understanding of instructions, follow-up care. Signatures: Dispatcher [employer] Jl Mobley MD MD cha Moreno, Amanda 2 Barbara Stone RN RN 1 Parvin Campos, ZIA RN kr3 Jesusita Vega RN RN mb9 [facility]
== END 2022-06-06 19:05 | disposition home or self-care (01) ==
LOC: ER 14:50
DX: R06.00 Dyspnea, unspecified (principal); R29.91 Unspecified symptoms and signs involving the musculoskeletal system; F31.9 Bipolar disorder, unspecified
CPT/HCPCS: 36415; 71045; 74176; 76377; 80048; 80076; 81003; 81015; 83690; 83735; 83880; 84484; 85025; 85379; 85610; 93005; 96360; 96361; 99284; J7030

== ENCOUNTER → 2023-04-12 | Emergency (ER) | payer SELFPAY ==
--- NOTE | 2023-04-12 04:24 | EDPHYS ---
Physician Documentation [facility] Name: Dominguez Easton Age: 28 yrs Sex: Male : 1995 Arrival Date: 04/12/2023 Time: 02:40 Bed 19 Private MD: ED Physician Estefany Patricio HPI: 04/12 04:24 This 28 yrs old Male presents to ER via Ambulatory with complaints of gb1 Testicular Lump, Testicular Pain. 04:24 Mr. Brannon is a 28-year-old male with left testicular pain for 2-1/2 months. It is gb1 painful when he urinates or ejaculates. He has been seeing blood in his urine and semen. He is sexually active but denies any penile discharge. He denies any back pain. He states he drinks a [address] Villanueva every day. He has no other medical problems and takes no other migraines medications. He has a history of ADHD, Asperger's, bipolar disease and migraines per the medical record.. Historical: - Allergies: 02:51 No Known Allergies; jj7 - PMHx: 02:51 ADD/ADHD; Asperger's; Bipolar disorder; collar bone fx; covid 19; Migraines; jj7 - PSHx: 02:51 jaw reconstruction; jj7 - Immunization history:: Adult Immunizations not immunized. - Social history:: Smoking status: Patient denies any tobacco usage or history of. Patient uses alcohol, occasionally. Patient/guardian denies using street drugs. ROS: 04:24 Constitutional: Negative for fever, chills, and weight loss, Eyes: Negative for injury, gb1 pain, redness, and discharge, ENT: Negative for injury, pain, and discharge, Neck: Negative for injury, pain, and swelling, Abdomen/GI: Negative for abdominal pain, nausea, vomiting, diarrhea, and constipation, Back: Negative for injury and pain, Psych: Negative for depression, anxiety, suicide ideation, homicidal ideation, and hallucinations, 04:24 : Positive for testicular pain 04:24 All other systems are negative, gb1 Exam: 04:24 Constitutional: This is a well developed, well nourished patient who is awake, alert, gb1 and in no acute distress. Head/Face: Normocephalic, atraumatic. Eyes: Pupils equal round and reactive to light, extra-ocular motions intact. Lids and lashes normal. Conjunctiva and sclera are non-icteric and not injected. Cornea within normal limits. Periorbital areas with no swelling, redness, or edema. ENT: Nares patent. No nasal discharge, no septal abnormalities noted. Tympanic membranes are normal and external auditory canals are clear. Oropharynx with no redness, swelling, or masses, exudates, or evidence of obstruction, uvula midline. Mucous membranes moist. Neck: Trachea midline, no thyromegaly or masses palpated, and no cervical lymphadenopathy. Supple, full range of motion without nuchal rigidity, or vertebral point tenderness. No Meningismus. Chest/axilla: Normal chest wall appearance and motion. Nontender with no deformity. No lesions are appreciated. Cardiovascular: Regular rate and rhythm with a normal S1 and S2. No gallops, murmurs, or rubs. Normal PMI, no JVD. No pulse deficits. 04:24 : Male external genitalia: tenderness, is palpated in the left inguinal area, of the epididymis area, Vital Signs: 02:47 BP 151 / 95; Pulse 81; Resp 16; Temp 98; Pulse Ox 100% ; Weight 92.99 kg; Height 6 ft. jj7 2 in. ; Pain 7/10; 02:47 Body Mass Index 26.32 (92.99 kg, 187.96 cm) jj7 02:47 Pain Scale: Adult jj7 MDM: 02:55 Patient medically screened. gb1 04:24 Differential diagnosis:. Data reviewed: vital signs, nurses notes. ED course: gb1 28-year-old male with a left epididymal cyst and bilateral hydrocele recommend outpatient urology follow-up. There is no testicular torsion or any signs of testicular rupture today. I have educated the patient and given him explicit return precautions which he is compliant with, discharge home today. I doubt obstructed ureterolithiasis or acute hydronephrosis with hydroureter. At this time patient appears nontoxic and I doubt acute pyelonephritis. I doubt infected stone.. 04/12 03:46 Order name: US Scrotum Testicles gb1 Administered Medications: No medications were administered Disposition Summary: 04/12/23 04:23 Discharge Ordered Notes: Location: Home gb1 Problem: new gb1 Symptoms: are unchanged gb1 Condition: Stable gb1 Diagnosis - Hydrocele, unspecified gb1 - Cyst of epididymis gb1 Followup: gb1 - With: Private Physician - When: - Reason: Re-evaluation by your physician Discharge Instructions: - Discharge Summary Sheet gb1 - Hydrocele, Adult gb1 - Testicular Self-Exam, [id number] gb1 Forms: - Medication Reconciliation Form gb1 - Thank You Letter gb1 - Antibiotic Education gb1 - Prescription Opioid Use gb1 - Patient Portal Instructions gb1 - Leadership Thank You Letter gb1 Signatures: Dispatcher [employer] Raven Chapman RN RN jj7 Estefany Patricio MD MD gb1
--- NOTE | 2023-04-12 04:24 | ER ---
Nurse's Notes [facility] Name: Dominguez Easton Age: 28 yrs Sex: Male : 1995 Arrival Date: 04/12/2023 Time: 02:40 Bed 19 Private MD: Diagnosis: Hydrocele, unspecified;Cyst of epididymis Presentation: 04/12 02:47 Chief complaint: Patient states: HAVING TESTICULAR PAIN AND NOTICED A LUMP IN HIS LEFT jj7 TESTICLE TONIGHT. Coronavirus screen: At this time, the client does not indicate any symptoms associated with coronavirus-19. Ebola Screen: No symptoms or risks identified at this time. Initial Sepsis Screen: Does the patient meet any 2 criteria? No. Patient's initial sepsis screen is negative. Does the patient have a suspected source of infection? No. Patient's initial sepsis screen is negative. Risk Assessment: Do you want to hurt yourself or someone else? Patient reports no desire to harm self or others. 02:47 Method Of Arrival: Ambulatory j7 02:47 Acuity: SACHI 3 jj7 03:08 Onset of symptoms was April 12, 2023. ap3 Triage Assessment: 02:51 General: Appears in no apparent distress. comfortable, Behavior is calm, cooperative, jj7 appropriate for age. Pain: Complains of pain in groin. : Reports burning with urination, Scrotal pain: sudden onset BILAT FLANK PAIN. Historical: - Allergies: 02:51 No Known Allergies; jj7 - PMHx: 02:51 ADD/ADHD; Asperger's; Bipolar disorder; collar bone fx; covid 19; Migraines; jj7 - PSHx: 02:51 jaw reconstruction; jj7 - Immunization history:: Adult Immunizations not immunized. - Social history:: Smoking status: Patient denies any tobacco usage or history of. Patient uses alcohol, occasionally. Patient/guardian denies using street drugs. Screenin:54 [facility] ED Fall Risk Assessment (Adult) History of falling in the last 3 months, jj7 including since admission No falls in past 3 months (0 pts) Confusion or Disorientation No (0 pts) Intoxicated or Sedated No (0 pts) Impaired Gait No (0 pts) Mobility Assist Device Used No (0 pt) Altered Elimination No (0 pt) Score/Fall Risk Level 0 - 2 = Low Risk Oriented to surroundings, Maintained a safe environment, Educated pt \T\ family on fall prevention, incl call for assistance when getting out of bed. Abuse screen: Denies threats or abuse. Nutritional screening: No deficits noted. Tuberculosis screening: No symptoms or risk factors identified. Vital Signs: 02:47 BP 151 / 95; Pulse 81; Resp 16; Temp 98; Pulse Ox 100% ; Weight 92.99 kg; Height 6 ft. jj7 2 in. ; Pain 7/10; 02:47 Body Mass Index 26.32 (92.99 kg, 187.96 cm) jj7 02:47 Pain Scale: Adult [facility] ED Course: 02:46 Patient arrived in ED. gm2 02:51 Triage completed. jj7 02:51 Arm band placed on right wrist. jj7 02:54 No provider procedures requiring assistance completed. jj7 02:55 Estefany Patricio MD is Attending Physician. gb1 03:07 Bhavana Rodriguez, RN is Primary Nurse. ap3 03:08 Patient has correct armband on for positive identification. Placed in gown. Bed in low ap3 position. Call light in reach. Side rails up X 1. Adult w/ patient. Pulse ox on. NIBP on. 04:24 US Scrotum Testicles In Process Unspecified. EDMS 04:53 Provided Education on: discharge instructions. ap3 04:53 Patient did not have IV access during this emergency room visit. ap3 Administered Medications: No medications were administered Medication: 04:53 VIS not applicable for this client. ap3 Outcome: 04:23 Discharge ordered by . 1 04:53 Discharged to home with family, ap3 04:53 Condition: good 04:53 Discharge instructions given to patient, Instructed on discharge instructions, follow up and referral plans. Demonstrated understanding of instructions, follow-up care, 04:53 Patient left the ED. ap3 Signatures: Dispatcher [employer] EDTN Bhavana Rodriguez RN RN ap3 Raven Griffiths RN RN jj7 Estefany Patricio MD MD gb1 Taylor Cates gm2
--- NOTE | 2023-04-12 10:06 | RAD REPORT ---
EXAM DESCRIPTION: US - Scrotum Testicles - 04/12/2023 4:23 am US Scrotum CLINICAL HISTORY: The patient is 28 years old and is Male; PAIN TECHNIQUE: Real-time ultrasound of the scrotum with color Doppler and image documentation. COMPARISON: No relevant prior studies available. FINDINGS: Right testicle: Unremarkable. No mass. No torsion. Left testicle: Unremarkable. No mass. No torsion. Epididymides: Left epididymal cyst. Scrotum: Small bilateral hydroceles. IMPRESSION: No acute findings in the scrotum. Electronically signed by: Kwesi Granda MD 04/12/2023 04:48 AM SMUDGER Due to temporary technical issues with the PACS/Fluency reporting system, reports are being signed by the in house radiologist without review as a courtesy to ensure prompt reporting. The interpreting r adiologist is fully responsible for the content of the report.
[2023-04-12 10:25] VITALS: BP 151/95; TEMP 98; O2SAT 100
== END ==
LOC: ER 02:40
DX: N43.3 Hydrocele, unspecified (principal); N50.3 Cyst of epididymis
CPT/HCPCS: 76870; 99283

== ENCOUNTER 2023-07-02 10:13 | Emergency (ER) | payer SELFPAY ==
[2023-07-02] MEDS ORDERED: dexAMETHasone 10 MG/ML VIAL ONE (10:44)
[2023-07-02] MEDS ORDERED: CYCLOBENZAPRINE 10 MG TAB ONE (10:44)
[2023-07-02] MEDS ORDERED: KETOROLAC 30 MG/ML INJ ONE (10:44)
--- NOTE | 2023-07-02 11:04 | RAD REPORT ---
EXAM DESCRIPTION: CTAbdomen Pelvis Wo Contrast - 07/02/2023 10:53 am CLINICAL HISTORY: mid/lower left back pain COMPARISON: Stone Protocol dated 06/06/2022; Abdomen Pelvis W Contrast dated 08/08/2016 TECHNIQUE: CT of the abdomen and pelvis was performed. All CT scans are performed using dose optimization technique as appropriate and may include automated exposure control or mA/KV adjustment according to patient size. FINDINGS: Lower chest: No acute abnormality. Liver: No acute abnormality or suspicious lesions. Biliary: No biliary ductal dilatation. Stomach: No significant focal abnormality. Duodenum: No significant focal abnormality. Pancreas: No significant abnormality. Spleen: No significant abnormality. Adrenal: No suspicious lesions. Kidney/ureter: No hydronephrosis. No renal calculi. Retroperitoneum: No retroperitoneal adenopathy. Vascular: No aneurysm. Bowel: No significant focal abnormality. Normal appendix . Peritoneum: No ascites or free air. Tiny fat containing umbilical hernia. Bladder: Grossly unremarkable. Reproductive: No adnexal masses. Bones: No acute fracture. Other: n/a IMPRESSION: No acute intra-abdominal or pelvic finding. Normal appendix. No urinary tract calculi.
--- NOTE | 2023-07-02 11:20 | EDPHYS ---
Physician Documentation [facility] Name: Dominguez Easton Age: 28 yrs Sex: Male : 1995 Arrival Date: 07/02/2023 Time: 10:13 Bed IW3 Private MD: ED Physician Julian Childers HPI: 07/01 10:45 This 28 yrs old Male presents to ER via Wheelchair with complaints of back pain. sb4 10:51 Patient states that he bent over and picked up a carburetor yesterday evening and has sb4 had a lot of pain in his left mid/lower back since. States that he took ibuprofen this morning without any relief. Tried taking a bath last night to relieve the pain as well. States he could not even drive this morning because the pain was so severe. He denies any bowel or bladder incontinence. No saddle paresthesia. Historical: - PMHx: 10:31 ADD/ADHD; Asperger's; Bipolar disorder; collar bone fx; covid 19; Migraines; ll1 - PSHx: 10:31 jaw reconstruction; ll1 - Immunization history:: Adult Immunizations up to date. - Infectious Disease History:: Denies. - Social history:: Smoking status: unknown. ROS: 10:51 Constitutional: Negative for fever, chills, and weight loss, sb4 10:51 Back: Positive for injury or acute deformity, decreased range of motion, pain at rest, pain with movement, of the left low back and left mid back, 10:51 All other systems are negative, Exam: 10:51 Head/Face: Normocephalic, atraumatic. Eyes: Extra-ocular motions intact. Periorbital sb4 areas with no swelling, redness, or edema. ENT: Mucous membranes moist. Skin: Warm, dry with normal turgor. Normal color with no rashes, no lesions, and no evidence of cellulitis. MS/ Extremity: Pulses equal, no cyanosis. Neurovascular intact. Full, normal range of motion. Neuro: Awake and alert, GCS 15, oriented to person, place, time, and situation. Motor strength 5/5 in all extremities. Sensory grossly intact. 10:51 Constitutional: The patient appears alert, awake, uncomfortable, 10:51 Back: pain, that is moderate, ROM is painful, normal spinal alignment noted, CVA tenderness, is absent, muscle spasm, is not present, Vital Signs: 10:38 BP 143 / 103; Pulse 81; Resp 18; Temp 98.2; Pulse Ox 100% on R/A; Weight 95.25 kg; ph Height 6 ft. 2 in. ; 11:31 BP 141 / 81; Pulse 81; Resp 18; Pulse Ox 100% ; Pain 5/10; ll1 10:38 Body Mass Index 26.96 (95.25 kg, 187.96 cm) ph 11:31 Pain Scale: Adult ll1 MDM: 10:36 Patient medically screened. sb4 11:17 Data reviewed: vital signs, nurses notes, radiologic studies, and as a result, I will sb4 discharge patient. Counseling: I had a detailed discussion with the patient and/or guardian regarding the historical points, exam findings, and any diagnostic results supporting the discharge/admit diagnosis, radiology results, to return to the emergency department if symptoms worsen or persist or if there are any questions or concerns that arise at home. 07/01 10:41 Order name: CT Abd/Pelvis - Without Contrast; Complete Time: 11:06 sb4 Administered Medications: 10:48 Drug: Ketorolac IM 30 mg IM once Route: IM; Site: right deltoid; ph 11:31 Follow up: Response: No adverse reaction; Pain is decreased ll1 10:48 Drug: Cyclobenzaprine PO 10 mg PO once Route: PO; ph 11:31 Follow up: Response: No adverse reaction; Pain is decreased; RASS: Alert and Calm (0) ll1 10:48 Drug: Dexamethasone IM 10 mg IM once Route: IM; Site: right deltoid; ph 11:31 Follow up: Response: No adverse reaction ll1 Disposition Summary: 07/02/23 11:19 Discharge Ordered Notes: Location: Home sb4 Condition: Stable sb4 Diagnosis - Strain of muscle, fascia and tendon of lower back sb4 Followup: sb4 - With: Emergency Department - When: As needed - Reason: Trouble breathing, Worsening of condition Discharge Instructions: - Discharge Summary Sheet sb4 - Low Back Sprain or Strain Rehab sb4 Forms: - Work release form sb4 - Thank You Letter sb4 - Patient Portal Instructions sb4 - Leadership Thank You Letter sb4 Prescriptions: - Cyclobenzaprine 10 mg Oral Tablet - take 1 tablet ORAL route every 8 hours As needed; 30 tablet; Refills: 0, sb4 Product Selection Permitted - Diclofenac Sodium 75 mg Oral Tablet Sustained Release - take 1 tablet ORAL route 2 times per day; 30 tablet; Refills: 0, Product sb4 Selection Permitted - Medrol (Parth) 4 mg Oral Tablets, Dose Pack - take 1 tablet ORAL route as directed - follow package instructions; 1 packet; sb4 Refills: 0, Product Selection Permitted Addendum: 07/03/2023 16:57 I was immediately available for consultation during this patient's visit. I did not e c2 personally see the patient or discuss the patient with the TYLER. . Signatures: Dispatcher [employer] Payal Daigle RN RN ph Jacobo Gonzalez RN RN ll1 Gisella Berrios PA-C PA-C sb4 Julian Childers MD MD ec2
--- NOTE | 2023-07-02 11:20 | ER ---
Nurse's Notes [facility] Name: Dominguez Easton Age: 28 yrs Sex: Male : 1995 Arrival Date: 07/02/2023 Time: 10:13 Bed IW3 Private MD: Diagnosis: Strain of muscle, fascia and tendon of lower back Presentation: 07/01 10:31 Coronavirus screen: Client denies travel out of the [place] in the last 14 days. Ebola ll1 Screen: Patient denies travel to an Ebola-affected area in the 21 days before illness onset. Initial Sepsis Screen: Does the patient meet any 2 criteria? No. Patient's initial sepsis screen is negative. Does the patient have a suspected source of infection? No. Patient's initial sepsis screen is negative. Risk Assessment: Do you want to hurt yourself or someone else? Patient reports no desire to harm self or others. 10:31 Method Of Arrival: Wheelchair ll1 10:38 Chief complaint: Patient states: Was attempting to "put a transmission in a trunk and ph it slipped and I tried to catch it." C/O pain to L upper and mid back, radiates to L rib area, worse w/ deep breathing. Occurred yesterday. Onset of symptoms was July 02, 2023. 10:38 Acuity: SACHI 4 ph Triage Assessment: 10:40 General: Appears in no apparent distress. Behavior is cooperative, appropriate for age, ph anxious. Pain: Complains of pain in left subscapular area, left low back and left mid back L ribs. Neuro: Level of Consciousness is awake, alert, obeys commands, Oriented to person, place, time, situation. Historical: - PMHx: 10:31 ADD/ADHD; Asperger's; Bipolar disorder; collar bone fx; covid 19; Migraines; ll1 - PSHx: 10:31 jaw reconstruction; ll1 - Immunization history:: Adult Immunizations up to date. - Infectious Disease History:: Denies. - Social history:: Smoking status: unknown. Screenin:32 [facility] ED Fall Risk Assessment (Adult) History of falling in the last 3 months, ll1 including since admission No falls in past 3 months (0 pts) Confusion or Disorientation No (0 pts) Intoxicated or Sedated No (0 pts) Impaired Gait Yes (1 pt) Mobility Assist Device Used Yes (1 pt) Altered Elimination No (0 pt) Score/Fall Risk Level 0 - 2 = Low Risk Oriented to surroundings, Hourly rounding (assess needs \\T\\ fall precautionary measures) done. Abuse screen: Denies threats or abuse. Nutritional screening: No deficits noted. Tuberculosis screening: No symptoms or risk factors identified. Assessment: 11:32 Reassessment: No changes from previously documented assessment. Patient and/or family ll1 updated on plan of care and expected duration. Pain level reassessed. Patient is alert, oriented x 3, equal unlabored respirations, skin warm/dry/pink. Vital Signs: 10:38 BP 143 / 103; Pulse 81; Resp 18; Temp 98.2; Pulse Ox 100% on R/A; Weight 95.25 kg; ph Height 6 ft. 2 in. ; 11:31 BP 141 / 81; Pulse 81; Resp 18; Pulse Ox 100% ; Pain 5/10; ll1 10:38 Body Mass Index 26.96 (95.25 kg, 187.96 cm) ph 11:31 Pain Scale: Adult ll1 ED Course: 10:15 Patient arrived in ED. rg4 10:16 Gisella Berrios PA-C is PHCP. sb4 10:16 Julian Childers MD is Attending Physician. sb4 10:31 Arm band placed on. ll1 10:40 Triage completed. ph 10:53 CT Abd/Pelvis - Without Contrast In Process Unspecified. EDMS 11:32 No provider procedures requiring assistance completed. Patient did not have IV access ll1 during this emergency room visit. 11:33 Patient has correct armband on for positive identification. Provided Education on: do ll1 not drink alcohol or drive on prescribed medications. Administered Medications: 10:48 Drug: Ketorolac IM 30 mg IM once Route: IM; Site: right deltoid; ph 11:31 Follow up: Response: No adverse reaction; Pain is decreased ll1 10:48 Drug: Cyclobenzaprine PO 10 mg PO once Route: PO; ph 11:31 Follow up: Response: No adverse reaction; Pain is decreased; RASS: Alert and Calm (0) ll1 10:48 Drug: Dexamethasone IM 10 mg IM once Route: IM; Site: right deltoid; ph 11:31 Follow up: Response: No adverse reaction ll1 Medication: 11:33 VIS not applicable for this client. ll1 Outcome: 11:19 Discharge ordered by . sb4 11:32 Discharged to home ambulatory, ll1 11:32 Condition: stable 11:32 Discharge instructions given to patient, Instructed on discharge instructions, follow up and referral plans. no driving heavy equipment, medication usage, Demonstrated understanding of instructions, follow-up care, medications, Prescriptions given X 3, :33 Patient left the ED. ll1 Signatures: Dispatcher [employer] EDPayal Garg RN RN jc Gandhi, Sheryl rg4 Jacobo Gonzalez RN RN ll1 Gisella Berrios, PA-C PA-C sb4
[2023-07-02 15:10] VITALS: BP 141/81; TEMP 98.2; O2SAT 100
== END 2023-07-02 11:33 | disposition home or self-care (01) ==
LOC: ER 10:13
DX: S39.012A Strain of muscle, fascia and tendon of lower back, initial encounter (principal)
CPT/HCPCS: 74176; 96372; 99284; J1100